=== PATIENT | female | born 1955 | race Caucasian/White ===

== ENCOUNTER → 2016-11-17 | Outpatient (CLI) | payer BC ==
[~2016-11-17] MED LIST: ALBUAER2; ALLDSR60; ASTHMACORT; MOME50SP5; SIMV40TA2
--- NOTE | 2016-11-17 16:29 | MAMMOGRAPHY REPORT ---
BILATERAL DIGITAL SCREENING MAMMOGRAM WITH CAD: 11/17/2016 CLINICAL HISTORY: Routine screening. Patient has no complaints. TECHNIQUE: Current study was also evaluated with a Computer Aided Detection (CAD) system. Bilatera l CC and MLO views were obtained. COMPARISON: Comparison is made to exams dated: 04/18/2013 mammogram, 01/26/2012 mammogram, 10/14/2010 mammogram, 10/12/2009 mammogram - [facility], 10/10/2008, and 09/17/2007. BREAST COMPOSITION: The tissue of both breasts is heterogeneously dense, which may obscure small ma sses. FINDINGS: No suspicious masses, calcifications, or areas of architectural distortion are noted in e ither breast. There has been no significant interval change compared to prior exams. Ovoid asymmetr y seen within the right lateral breast on the cc view is stable dating back to at least the 2011 exa m. A few scattered bilateral benign-appearing calcifications are noted. IMPRESSION: ACR BI-RADS CATEGORY 2: BENIGN There is no mammographic evidence of malignancy. A 1 year screening mammogram is recommended. The p atient will receive written notification of the results. Approximately 10% of breast cancers are not detected with mammography. A negative mammographic repor t should not delay biopsy if a clinically suggestive mass is present. Kathy Castellanos M.D. /:11/17/2016 15:26:29 Chuck Splitter: Mevlina VEGAS(R)(M), [facility] letter sent: Normal 1/2 BI-RADS Code: ACR BI-RADS Category 2: Benign
== END | disposition home or self-care (01) ==
LOC: C.MAMM 13:43
PROVIDERS: ATTEND Internal Medicine
DX: Z12.31 Encounter for screening mammogram for malignant neoplasm of breast (principal)

== ENCOUNTER 2019-11-20 08:41 | Inpatient (IN) ==
[2019-11-20 09:05] LABS: Hematocrit (blood only) 45.2 % (37-47); Hemoglobin 15.1 g/dL (12.0-16.0); Immature Granulocytes # (auto) 0.05 K/uL (0.00-0.02); Immature Granulocytes % (auto) 0.3 %; Lymphocytes # (auto) 0.75 K/uL (1.2-3.4); Lymphocytes % (auto) 5.1 %; Mean Corpuscular Hemoglobin 29.8 pg (25-34); Mean Corpuscular Hgb Conc 33.4 g/dL (32-36); Mean Corpuscular Volume 89.3 fL (80-100); Mean Platelet Volume 11.5 fL (7.4-10.4); Monocytes # (auto) 0.53 K/uL (0.11-0.59); Monocytes % (auto) 3.6 %; Neutrophils # (auto) 13.24 K/uL (1.4-6.5); Platelet Count 232 K/uL (130-400); RDW Coefficient of Variation 14.6 % (11.5-14.5); RDW Standard Deviation 47.4 fL (36.4-46.3); Red Blood Count 5.06 M/uL (4.2-5.4); White Blood Count 14.57 K/uL (4.8-10.8)
[2019-11-20] MEDS ORDERED: SODIUM CHLORIDE 0.9% 1000ML 1,000 ML IV ONE ×2 (09:07→10:22)
[2019-11-20] MEDS: HYDROmorphone INJ 0.5 MG/0.5 ML SYR IV PRN ×2 (09:20→10:20)
[2019-11-20] MEDS ORDERED: metroNIDAZOLE 500 MG/100 ML BAG IV STA (10:02)
--- NOTE | 2019-11-20 10:03 | CT Scan Report ---
ABDOMEN AND PELVIS CT WITHOUT CONTRAST CT DOSE: 687.79 mGycm HISTORY: Acute right lower quadrant abdominal pain with history of kidney stones RLQ pain, h/o stone s TECHNIQUE: Multiaxial CT images of the abdomen and pelvis were performed without contrast. A dose lo wering technique was utilized adhering to the principles of ALARA. COMPARISON STUDY: Chest radiographs 08/23/2019 FINDINGS: Mild dependent bibasilar atelectasis. Small volume of pneumoperitoneum is noted throughout the abdome n and pelvis. No pneumatosis identified. Imaged inferior cardiac chambers are unremarkable. Limited e valuation of the solid abdominal organs without the use of IV contrast. The limitations of the study, the spleen, and adrenal glands are unremarkable. Mild pancreatic atrophy. Liver is unremarkable with out focal mass identified. Cholecystectomy. There are a few punctate nonobstructing calculi noted within the bilateral kidneys. No ureteral calcu li or obstructive uropathy. The ureters are unremarkable. Partially decompressed urinary bladder. Lob ular morphology of the uterus suggestive of fibroids which includes a subserosal versus pedunculated right fundal lesion measuring 2.8 cm. No adnexal mass lesion. Moderate calcified plaque the abdominal aorta. No adenopathy. Fluid-filled distal esophagus and stomach. No small bowel obstruction. Moderate fecal retention. Gabriela nflamed appendix. Mild degree of complex abdominal pelvic ascites, most pronounced within the depende nt pelvis and right pericolic gutter. Several stool-filled loops of small bowel are noted. A site of perforation is not definitively seen. Soft tissues are unremarkable. Degenerative changes of the spin e and pelvis. No acute fracture. IMPRESSION: 1. Small volume of scattered pneumoperitoneum throughout the abdomen and pelvis is compatible with pe rforated viscus. The site of perforation is not definitively seen. Surgical consultation is needed. 2. Moderate fecal retention with multiple stool-filled loops of small bowel compatible with decreased small bowel transit. 3. Small volume of complex abdominal pelvic ascites likely correlates with bowel contents with hemope ritoneum considered less likely without reported history of trauma. 4. No bowel obstruction. 5. Nonobstructing punctate bilateral nephrolithiasis. 6. Cholecystectomy. ACT 112: Negative or not required by law. The above report was generated using voice recognition software. It may contain grammatical, syntax o r spelling errors. Electronically signed by: Anthony Galan M.D. 11/20/2019 10:02 AM
[2019-11-20] MEDS ORDERED: CIPROFLOXACIN / D5W 400 MG/200 ML BAG IV STA (10:07)
[2019-11-20 10:29] LABS: Albumin Level 3.7 gm/dl (3.4-5.0); BUN Creatinine Ratio 12.4 (10-20); Calcium 8.9 mg/dl (8.5-10.1); Creatinine Clr Calc Pharmacy 59.9 ml/min; Est GFR (Non-African American) 57.8; Potassium 4.4 mmol/L (3.5-5.1)
[2019-11-20 10:34] LABS: Albumin Globulin Ratio 0.9 (0.9-2); Bilirubin,Total 1.1 mg/dl (0.2-1); Total Protein 7.7 gm/dl (6.4-8.2)
--- NOTE | 2019-11-20 10:54 | Emergency Department Note ---
Impression & Plan Perforated abdominal viscus ED Provider Note NAME: SMITHA CALLE AGE: 64 SEX: F ARRIVES VIA: Ambulance INFORMANT: [Patient] EMS ED PROVIDER(S): Gerardo Freeman MD CHIEF COMPLAINT: Abdominal pain PLAN: Disposition: Admitted Condition: Guarded MEDICAL DECISION MAKING: Patient is a 64-year-old female presented with acute onset of abdominal pain. She was treated with IV Dilaudid and IV fluids. The patient received morphine and Zofran prehospital by medical command. She underwent blood work and imaging. The patient had a leukocytosis. Her CT imaging was very concerning for a perforated viscus. General surgery was emergently consulted. I discussed the case with Kadie Evans PA-C and the patient will be evaluated admitted by Dr. Gomes. Triage Nursing notes reviewed and agree them. [Additional history obtained from] EMS Vital Signs: reviewed and remarkable for tachycardia Differential diagnosis: Appendicitis, ovarian viscus, ovarian pathology, ovarian torsion, ectopic , TOA, PID, infections, diverticulitis, UTI, obstruction, mesenteric ischemia, aortic pathology, inflammatory bowel disease, renal colic, PUD, pancreatitis, biliary pathology, hernia, volvulus, constipation, as well as other pathologies. ER treatment provided: IV Dilaudid Normal saline hydration IV Cipro IV Flagyl Diagnostics interpreted by me: ECG: Rate: 113 bpm Rhythm: Sinus tachycardia [place]: Normal QRS: Normal ST segements: Nonspecific ST and inferolateral T wave inversions Other: No PVCs or PACs Cardiac Monitoring: Cardiac monitoring ordered by me: The patient was placed on continuous cardiac monitoring and observed. It revealed a sinus tachycardia at 120 beats per minute without ectopy or evidence of dysrhythmia. Laboratory studies: [See below] CBC was concerning for moderate leukocytosis. Chemistry panel unremarkable. Imaging studies: [See below] CT scan of the abdomen pelvis was performed and was concerning for perforated viscus. I refer you to the EMR for further details. Consultation(s): General surgery, Kadie Evans PA-C under the supervision of Dr. Gomes. HPI: The patient is a 64 year old female who presents to the Emergency Room with complaints of severe abdominal. This started last evening and is worsening. The patient also notes the following associated symptoms, mild nausea. The pat ient has found no relieving factors. Current pain is rated as 10/10. The patient had such severe pain today she called 911. EMS contact me for medical command and the patient was given morphine and Zofran prehospital to facilitate transfer. Pt denies LOC, headache, fevers, chills, diaphoresis, visual changes, neck pain, chest pain, breathing difficulties, vomiting, back pain, melena, hematochezia, urinary symptoms, numbness, weakness, lymphadenopathy, rash, or other complaints. ROS: See above HPI for pertinent positives & negatives. A total of [10] systems reviewed and were otherwise negative. 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 Oropharynx unremarkable. EYES: Normal conjunctiva. Sclera non-icteric. NECK: Inspection normal. Non-tender. Supple. No nuchal rigidity. FROM. No masses. RESPIRATORY: Clear to auscultation. No wheezes. No rales. Normal respiratory effort. CARDIAC: Tachycardic rate. Normal rhythm. No murmurs. No rubs. Extremities warm and well perfused. Pulses equal. No JVD. GI: Soft, non-distended. Diffuse tenderness to palpation, worse in the lower quadrant. Positive for rebound and guarding. No masses. RECTAL: Deferred. MUSCULOSKELETAL: Atraumatic. Chest examination reveals no tenderness. The back is symmetrical on inspection without obvious abnormality. There is no CVA t enderness to palpation. No joint edema. LOWER EXTREMITIES: Calves are equal size bilaterally and non-tender. No edema. No discoloration. NEURO: Normal sensorium. No sensory or motor deficits noted. SKIN: No rash or jaundice noted. ED COURSE: Procedures: [none] [Critical Care:] I have personally spent greater than 40 minutes of critical care time in the direct management of this patient. This includes bedside care, interpretation of diagnostic studies, and testing, discussion with consultants, patient, and other required patient management activities. This 40 minutes is in excess of all separately billable procedures. Gerardo Freeman MD Past Med/Surg History Medical History (Updated 11/20/19 @ 10:51 by Gerardo Freeman MD) Allergic rhinitis (Chronic) Anxiety (Chronic) Asthma (Chronic) Depression GERD (gastroesophageal reflux disease) (Chronic) Hyperlipidemia (Chronic) Impaired fasting glucose (Chronic) Kidney stones Never smoker Obstructive sleep apnea (Chronic) Osteoarthritis (Chronic) Surgical History Frozen shoulder left "Put me to sleep to stretch it out" History of bilateral tubal ligation History of cholecystectomy History of colonoscopy History of right breast biopsy benign History of vaginal surgery removal of vagina polyp History of wisdom tooth extraction Social History (Updated 11/05/19 @ 13:46 by Dolores Stern) Preferred Language: Dutch Communication Ability: Effective Car Scrubber Required: No Beliefs That Will Affect Care: None marital status: Current Living Situation: Spouse and Parent Current Living Situation Comment: Lives with and mother current occupational status: retired Feels Safe at Home: Yes Smoking Status: Never smoker Second Hand Exposure: Yes (father smoked/work environment) ; Hx Alcohol Use: Yes Alcohol type: wine Hx Substance Use: No Allergies Allergies Allergy/AdvReac Type Severity Reaction Status Date / Time amoxicillin Allergy Intermediate blood in Verified 11/20/19 08:59 urine Home Meds Home Medications Medication Instructions Recorded Confirmed citalopram 20 mg tablet 10 mg PO QDL tab 07/02/19 11/20/19 L. gasseri-B. bifidum-B longum 1.5 1 cap PO QDL 07/23/19 11/20/19 billion cell capsule acetaminophen [Tylenol] 325 mg PO QID PRN 11/20/19 11/20/19 montelukast 10 mg PO QDL 11/20/19 11/20/19 pantoprazole 40 mg PO QDL 11/20/19 11/20/19 rosuvastatin 20 mg PO DAILY@0100 11/20/19 11/20/19 Previous Rx's Medication Instructions Recorded albuterol sulfate 90 mcg/actuation 2 puff INHALATION Q6H PRN #25.5 gm 07/02/19 aerosol inhaler budesonide-formoterol HFA 160 2 puffs INH BID #10.2 gm 07/26/19 mcg-4.5 mcg/actuation aerosol inhaler pseudoephedrine HCl 120 mg 120 mg PO Q12H #60 tab 08/23/19 tablet,extended release Results & Data (ED) Vital Signs Vital Signs - 24 hr 11/20/19 08:44 11/20/19 08:55 11/20/19 09:56 Temperature 36.8 C Temperature Source Oral Pulse Rate 120 H Pulse Rate [Apical] 120 H Respiratory Rate 22 18 Blood Pressure 157/100 H Blood Pressure [Left Arm] 149/84 H Blood Pressure Mean 119 Blood Pressure Mean [Left Arm] 105 Pulse Oximetry 94 94 96 Oxygen Delivery Method Room Air Room Air Nasal Cannula Sepsis Recent Fever Within 48 Hours No Sepsis New/Unexplained Change in Mental Status No Sepsis Action Taken by Nursing No Action Required Laboratory Data Result diagrams: 11/20/19 08:55 11/20/19 09:42 Lab Results 11/20/19 11/20/19 11/20/19 Range/Units 08:55 08:55 09:42 WBC 14.57 H (4.8-10.8) K/uL RBC 5.06 (4.2-5.4) M/uL Hgb 15.1 (12.0-16.0) g/dL Hct 45.2 (37-47) % MCV 89.3 (80-100) fL MCH 29.8 (25-34) pg MCHC 33.4 (32-36) g/dL RDW Std Deviation 47.4 H (36.4-46.3) fL RDW Coeff of [place] 14.6 H (11.5-14.5) % Plt Count 232 (130-400) K/uL MPV 11.5 H (7.4-10.4) fL Immature Gran % (Auto) 0.3 % Neut % (Auto) 91.0 % Lymph % (Auto) 5.1 % [place] % (Auto) 3.6 % Eos % (Auto) 0.0 % Baso % (Auto) 0.0 % Immature Gran # (Auto) 0.05 H (0.00-0.02) K/uL Neut # (Auto) 13.24 H (1.4-6.5) K/uL Lymph # (Auto) 0.75 L (1.2-3.4) K/uL [place] # (Auto) 0.53 (0.11-0.59) K/uL Eos # (Auto) 0.00 (0-0.5) K/uL Baso # (Auto) 0.00 (0-0.2) K/uL Sodium Cancelled 139 Potassium Cancelled 4.4 Chloride Cancelled 109 H Carbon Dioxide Cancelled 25 Anion Gap Cancelled 5.0 BUN Cancelled 13 Creatinine Cancelled 1.03 Est Cr Clr Drug Dosing Cancelled 59.9 Est GFR ( Amer) Cancelled 67.0 Est GFR (Non-Af Amer) Cancelled 57.8 BUN/Creatinine Ratio Cancelled 12.4 Glucose Cancelled 198 H Calcium Cancelled 8.9 Total Bilirubin Cancelled 1.1 H AST Cancelled 22 ALT Cancelled 44 Alkaline Phosphatase Cancelled 87 Total Protein Cancelled 7.7 Albumin Cancelled 3.7 Globulin Cancelled 4.0 Albumin/Globulin Ratio Cancelled 0.9 Lipase Cancelled 45 L Administered Medications Hydromorphone HCl (Dilaudid) 0.25 mg IV Q15M PRN PRN Reason: Pain Stop: 12/04/19 09:06 Last Admin: 11/20/19 10:20 Dose: 0.25 mg Documented by: [id number] Admin: 11/20/19 09:20 Dose: 0.25 mg Documented by: [id number] Metronidazole (Flagyl) 500 mg in 100 mls @ 100 mls/hr IV NOW STA Stop: 11/20/19 11:01 Last Admin: 11/20/19 10:20 Dose: 100 mls/hr Documented by: [id number] Ciprofloxacin (Cipro) 400 mg in 200 mls @ 200 mls/hr IV NOW STA Stop: 11/20/19 11:06 Last Admin: 11/20/19 10:20 Dose: 200 mls/hr Documented by: [id number] Sodium Chloride (Nss 1000ml) 1,000 mls @ 999 mls/hr IV .Q1H1M ONE Stop: 11/20/19 11:22 Last Admin: 11/20/19 10:39 Dose: 999 mls/hr Documented by: [id number] Discontinued Medications Sodium Chloride (Nss 1000ml) 1,000 mls @ 999 mls/hr IV .Q1H1M ONE Stop: 11/20/19 10:07 Last Infusion: 11/20/19 10:28 Dose: 0 mls/hr Documented by: [id number] Admin: 11/20/19 09:21 Dose: 999 mls/hr Documented by: [id number] Discharge Plan Visit Data Chief Complaint: Abdominal Pain ED Provider: Gerardo Freeman Discharge Problem: Perforated abdominal viscus Forms Stand Alone Forms: [facility] Prescriptions Prescriptions: No Action citalopram 20 mg tablet 10 mg PO QDL RF: 0 albuterol sulfate [ProAir HFA] 90 mcg/actuation HFA aerosol inhaler 2 puff INHALATION Q6H PRN (Reason: Shortness Of Breath) Qty: 25.5 RF: 3 Gen[employer] Vision 1.5 billion cell capsule 1 cap PO QDL RF: 0 Symbicort 160-4.5 mcg/actuation HFA aerosol inhaler 2 puffs INH BID Qty: 10.2 RF: 2 pseudoephedrine HCl [Sudafed 12 Hour] 120 mg tablet extended release 120 mg PO Q12H Qty: 60 RF: 0 acetaminophen [Tylenol] 325 mg Tablet 325 mg PO QID PRN (Reason: Pain) RF: 0 pantoprazole 40 mg tablet,delayed release (DR/EC) 40 mg PO QDL RF: 0 montelukast 10 mg tablet 10 mg PO QDL RF: 0 rosuvastatin 20 mg tablet 20 mg PO DAILY@0100 RF: 0
[2019-11-20] MEDS ORDERED: BACITRACIN OINT 15 GM TUBE ONE (11:19)
[2019-11-20] MEDS ORDERED: BUPIVACAINE 0.5 % 5 MG/1 ML MPF 30ML VIAL ONE (11:19)
[2019-11-20] MEDS ORDERED: LIDOCAINE HCL 1% 20 ML VIAL ONE (11:19)
--- NOTE | 2019-11-20 11:21 | History & Physical Report ---
Date of Service November 20, 2019 Assessment & Plan (1) Perforated abdominal viscus: 64 year-old female presented to ED with sudden onset of abdominal pain that began last evening that increase in nature throughout the night. Associated sweats and lightheadedness. Leukocytosis of 14k. CT scan of abdomen and pelvis without contrast showing scattered pneumoperitoneum with ascites in pelvis and right colic gutter concerning for perforation, site of perforation unclear on CT scan. Abdomen is soft but involuntary and voluntary guarding with rigidity and rebound tenderness on examination. Plan: Discussed with patient findings on CT scan concerning for possible bowel perforation. Discussed need for exploration and possible bowel resection and ostomy to control infection and prevent further infection, sepsis, or even . Dr. Gomes discussed procedure and risks as well with patient. Informed consent obtained by patient. Continue IV Cipro/Flagyl Continue pain management To OR emergently for ex lap, possible bowel resection, possible ostomy Med/surg postop Keep NPO I ( Yunior Gomes MD ) did talk to pt about benefits, risks and alternative sof the exploratory laparotomy, possible bowel resection, stoma, the risks - infection, bleeding, abscess, sepsis, multiple organs failure, DC, DVT, , pt understood, she agrees with the surgery, I answered all questions, (2) Pneumoperitoneum: Plan as above Dr. Gomes has seen and examined patient, agrees with above. History of Present Illness Chief Complaint: abdominal pain Primary Care Provider: Jennifer Soliz MD Velvet is a pleasant 64 year-old female who presented to emergency department via ambulance for severe abdominal pain that suddenly began last evening. States she was in her normal state of health yesterday morning and prior. States pain started in lower abdomen than began to generalize and become more severe. Took Tylenol without much relief. States she had increasing pain to the point she could not get up to go to the bathroom. 10/10 severe pain. Had hard small bowel movements without any blood earlier in day and then smear of stool during urination in the evening. States she would get clammy, sweaty, and lightheaded due to the pain and any movement but no fevers. No real associated nausea or vomiting. No difficulty urinating. Denies chest pain, shortness of breath, or difficulty breathing. Had a colonoscopy in March 2019 in which polyps were removed but no other concerns. No history of diverticulosis or bowel issues. Regular bowel movements in last 10 years. Believes her aunt on her paternal side had colon cancer. Mother with history of diverticulitis. Er work-up included labs which showed leukocytosis of 14k. CT scan of abd/pelvis without contrast showing scattered pneumoperitoneum and ascites in the pelvis and right colic gutter concerning for bowel perforation but unknown site given lack of contrast. Stool filled small bowel and right colon. She currently is rating her pain 2/10 but had Morphine prehospital and Dilaudid IV. Mouth feels really dry. Has not had anything to eat or drink this morning. Allergies Allergy/AdvReac Type Severity Reaction Status Date / Time amoxicillin Allergy Intermediate blood in Verified 11/20/19 08:59 urine Home Medications Home Medications Medication Instructions Recorded Confirmed Type albuterol sulfate 90 mcg/actuation 2 puff INHALATION Q6H PRN #25.5 gm 07/02/19 11/20/19 Rx aerosol inhaler citalopram 20 mg tablet 10 mg PO QDL tab 07/02/19 11/20/19 History L. gasseri-B. bifidum-B longum 1.5 1 cap PO QDL 07/23/19 11/20/19 History billion cell capsule budesonide-formoterol HFA 160 2 puffs INH BID #10.2 gm 07/26/19 11/20/19 Rx mcg-4.5 mcg/actuation aerosol inhaler pseudoephedrine HCl 120 mg 120 mg PO Q12H #60 tab 08/23/19 11/20/19 Rx tablet,extended release acetaminophen [Tylenol] 325 mg PO QID PRN 11/20/19 11/20/19 History montelukast 10 mg PO QDL 11/20/19 11/20/19 History pantoprazole 40 mg PO QDL 11/20/19 11/20/19 History rosuvastatin 20 mg PO DAILY@0100 11/20/19 11/20/19 History Past Med/Surg History Medical History Allergic rhinitis (Chronic) Anxiety (Chronic) Asthma (Chronic) Depression GERD (gastroesophageal reflux disease) (Chronic) Hyperlipidemia (Chronic) Impaired fasting glucose (Chronic) Kidney stones Never smoker Obstructive sleep apnea (Chronic) Osteoarthritis (Chronic) Surgical History Frozen shoulder left "Put me to sleep to stretch it out" History of bilateral tubal ligation History of cholecystectomy History of colonoscopy History of right breast biopsy benign History of vaginal surgery removal of vagina polyp History of wisdom tooth extraction Family History Mother Family history of diabetes mellitus Aunt Family history of diabetes mellitus Family hx of colon cancer Uncle Family history of diabetes mellitus Family hx of colon cancer Grandmother (Paternal) Family history of diabetes mellitus Grandmother (Maternal) Family history of diabetes mellitus Other No family history of adverse response to anesthesia Social History (Updated 11/05/19 @ 13:46 by Dolores Stern) Preferred Language: Albanian Communication Ability: Effective Manifold Operator Required: No Beliefs That Will Affect Care: None marital status: Current Living Situation: Spouse and Parent Current Living Situation Comment: Lives with and mother current occupational status: retired Feels Safe at Home: Yes Smoking Status: Never smoker Do You Dip or Chew Tobacco: No ; Second Hand Exposure: Yes (father smoked/work environment) ; Hx Alcohol Use: Yes Alcohol type: wine Hx Substance Use: No Review of Systems Review of Systems: All systems reviewed & are unremarkable except as noted in HPI & below Physical Exam Constitutional: well developed, + acute distress (mild distressed) and + obese ENMT: Mouth: + dry oral mucous membranes Respiratory: normal respiratory effort, lungs clear to auscultation no labored breathing, no retractions and does not use accessory muscles decreased lung expansion on deep breath due to abdominal pain Gastrointestinal (Abdomen): Inspection/Auscultation: abdomen normal to inspection; abdomen not distended and + abnormal bowel sounds (hypoactive) Percussion/Palpation: + abdomen tender, + guarding and abdomen soft rebound tenderness left and right lower abdomen, guarding throughout. Skin: no rashes, warm and dry Psychiatric: Orientation: alert and oriented x 3 Results & Data Results & Data ([facility]) Vital Signs (Past 12 Hours) Vital Signs Temp Pulse Pulse Resp BP BP Pulse Ox 11/20/19 09:56 120 H 18 149/84 H 96 11/20/19 08:55 36.8 C 120 H 22 157/100 H 94 11/20/19 08:44 94 Laboratory Results 11/20/19 11/20/19 11/20/19 Range/Units 09:42 08:55 08:55 WBC 14.57 H (4.8-10.8) K/uL RBC 5.06 (4.2-5.4) M/uL Hgb 15.1 (12.0-16.0) g/dL Hct 45.2 (37-47) % MCV 89.3 (80-100) fL MCH 29.8 (25-34) pg MCHC 33.4 (32-36) g/dL RDW Std Deviation 47.4 H (36.4-46.3) fL RDW Coeff of [place] 14.6 H (11.5-14.5) % Plt Count 232 (130-400) K/uL MPV 11.5 H (7.4-10.4) fL Immature Gran % (Auto) 0.3 % Neut % (Auto) 91.0 % Lymph % (Auto) 5.1 % [place] % (Auto) 3.6 % Eos % (Auto) 0.0 % Baso % (Auto) 0.0 % Immature Gran # (Auto) 0.05 H (0.00-0.02) K/uL Neut # (Auto) 13.24 H (1.4-6.5) K/uL Lymph # (Auto) 0.75 L (1.2-3.4) K/uL [place] # (Auto) 0.53 (0.11-0.59) K/uL Eos # (Auto) 0.00 (0-0.5) K/uL Baso # (Auto) 0.00 (0-0.2) K/uL Sodium 139 Cancelled Potassium 4.4 Cancelled Chloride 109 H Cancelled Carbon Dioxide 25 Cancelled Anion Gap 5.0 Cancelled BUN 13 Cancelled Creatinine 1.03 Cancelled Est Cr Clr Drug Dosing 59.9 Cancelled Est GFR ( Amer) 67.0 Cancelled Est GFR (Non-Af Amer) 57.8 Cancelled BUN/Creatinine Ratio 12.4 Cancelled Glucose 198 H Cancelled Calcium 8.9 Cancelled Total Bilirubin 1.1 H Cancelled AST 22 Cancelled ALT 44 Cancelled Alkaline Phosphatase 87 Cancelled Total Protein 7.7 Cancelled Albumin 3.7 Cancelled Globulin 4.0 Cancelled Albumin/Globulin Ratio 0.9 Cancelled Lipase 45 L Cancelled Diagnostic Findings ABDOMEN AND PELVIS CT WITHOUT CONTRAST CT DOSE: 687.79 mGycm HISTORY: Acute right lower quadrant abdominal pain with history of kidney stones RLQ pain, h/o stones TECHNIQUE: Multiaxial CT images of the abdomen and pelvis were performed without contrast. A dose lowering technique was utilized adhering to the principles of ALARA. COMPARISON STUDY: Chest radiographs 08/23/2019 FINDINGS: Mild dependent bibasilar atelectasis. Small volume of pneumoperitoneum is noted throughout the abdomen and pelvis. No pneumatosis identified. Imaged inferior cardiac chambers are unremarkable. Limited evaluation of the solid abdominal organs without the use of IV contrast. The limitations of the study, the spleen, and adrenal glands are unremarkable. Mild pancreatic atrophy. Liver is unremarkable without focal mass identified. Cholecystectomy. There are a few punctate nonobstructing calculi noted within the bilateral kidneys. No ureteral calculi or obstructive uropathy. The ureters are unremarkable. Partially decompressed urinary bladder. Lobular morphology of the uterus suggestive of fibroids which includes a subserosal versus pedunculated right fundal lesion measuring 2.8 cm. No adnexal mass lesion. Moderate calcified plaque the abdominal aorta. No adenopathy. Fluid-filled distal esophagus and stomach. No small bowel obstruction. Moderate fecal retention. Noninflamed appendix. Mild degree of complex abdominal pelvic ascites, most pronounced within the dependent pelvis and right pericolic gutter. Several stool-filled loops of small bowel are noted. A site of perforation is not definitively seen. Soft tissues are unremarkable. Degenerative changes of the spine and pelvis. No acute fracture. IMPRESSION: 1. Small volume of scattered pneumoperitoneum throughout the abdomen and pelvis is compatible with perforated viscus. The site of perforation is not definitively seen. Surgical consultation is needed. 2. Moderate fecal retention with multiple stool-filled loops of small bowel compatible with decreased small bowel transit. 3. Small volume of complex abdominal pelvic ascites likely correlates with bowel contents with hemoperitoneum considered less likely without reported history of trauma. 4. No bowel obstruction. 5. Nonobstructing punctate bilateral nephrolithiasis. 6. Cholecystectomy. Code Status & VTE Plan VTE Prophylaxis Plan VTE Prophylaxis will be ordered: Yes
[2019-11-20] MEDS ORDERED: ATROPINE SULFATE 0.1 MG/ML 10ML SYR IV PRN (11:22)
[2019-11-20] MEDS ORDERED: ePHEDrine sulfate 50 MG/ML AMP IV PRN (11:22)
[2019-11-20] MEDS ORDERED: fentaNYL citrate 100 MCG/2 ML VIAL IV PRN (11:22)
[2019-11-20] MEDS ORDERED: HYDROmorphone INJ 1 MG/ML SYRINGE IV PRN (11:22)
[2019-11-20] MEDS ORDERED: ONDANSETRON INJ 2 MG/ML 2 ML VIAL IV PRN (11:22)
--- NOTE | 2019-11-20 11:22 | Anesthesiology Consultation ---
Date of Service November 20, 2019 Assessment & Plan Chart Review Chart Review: Acceptable Risk for Surgery and Patient NOT seen in Pre Admission Testing Consults Requested none History Surgery Operation Date: 11/20/19 08:00 Proposed Procedures p Exploratory Laparotomy, Possible Bowel Resection, Stoma - Yunior Gomes MD Height/Weight Height: 5 ft 5 in Weight: 84.2 kg Allergies Allergy/AdvReac Type Severity Reaction Status Date / Time amoxicillin Allergy Intermediate blood in Verified 11/20/19 08:59 urine Medications Home Medications Medication Instructions Recorded Confirmed Last Taken albuterol sulfate 90 mcg/actuation 2 puff INHALATION Q6H PRN #25.5 gm 07/02/19 11/20/19 Unknown aerosol inhaler citalopram 20 mg tablet 10 mg PO QDL tab 07/02/19 11/20/19 11/19/19 L. gasseri-B. bifidum-B longum 1.5 1 cap PO QDL 07/23/19 11/20/19 11/19/19 billion cell capsule budesonide-formoterol HFA 160 2 puffs INH BID #10.2 gm 07/26/19 11/20/19 Unknown mcg-4.5 mcg/actuation aerosol inhaler pseudoephedrine HCl 120 mg 120 mg PO Q12H #60 tab 08/23/19 11/20/19 11/19/19 tablet,extended release acetaminophen [Tylenol] 325 mg PO QID PRN 11/20/19 11/20/19 11/20/19 03:30 325 mg montelukast 10 mg PO QDL 11/20/19 11/20/19 11/19/19 pantoprazole 40 mg PO QDL 11/20/19 11/20/19 11/19/19 rosuvastatin 20 mg PO DAILY@0100 11/20/19 11/20/19 11/18/19 01:00 Active Medications Generic Name Dose Route Start Last Admin Trade Name Freq PRN Reason Stop Dose Admin Hydromorphone HCl 0.25 mg 11/20/19 09:07 11/20/19 10:20 Dilaudid IV 12/04/19 09:06 0.25 mg Q15M PRN Administration Pain NPO Date Last Intake of Fluids: 11/20/19 Time Last Intake of Fluids: 03:30 Last Intake of Fluids Comment: with pills Date Last Intake of Solids: 11/19/19 Time Last Intake of Solids: 20:00 Past Medical History Medical History Allergic rhinitis (Chronic) Anxiety (Chronic) Asthma (Chronic) Depression GERD (gastroesophageal reflux disease) (Chronic) Hyperlipidemia (Chronic) Impaired fasting glucose (Chronic) Kidney stones Never smoker Obstructive sleep apnea (Chronic) Osteoarthritis (Chronic) Exercise / Class Metabolic Activity II 4-5 Yardwork/Stairs/Walk up hill Past Family History Family History Mother Family history of diabetes mellitus Aunt Family history of diabetes mellitus Family hx of colon cancer Uncle Family history of diabetes mellitus Family hx of colon cancer Grandmother (Paternal) Family history of diabetes mellitus Grandmother (Maternal) Family history of diabetes mellitus Other No family history of adverse response to anesthesia Past Surgical History Surgical History Frozen shoulder left "Put me to sleep to stretch it out" History of bilateral tubal ligation History of cholecystectomy History of colonoscopy History of right breast biopsy benign History of vaginal surgery removal of vagina polyp History of wisdom tooth extraction Past Anesthesia History No Hx of Anesthesia Complications and No Family Hx of Anesthesia Complications History of PONV No Hx of PONV and No Hx of Motion Sickness Social History Smoking Status: Never smoker Do You Dip or Chew Tobacco: No Hx Alcohol Use: Yes Alcohol type: wine alcohol intake frequency: holidays/special occasions only Hx Substance Use: No substance use type: does not use Physical Exam Vital Signs Last Vital Signs Temp 37.4 C 11/20/19 11:40 Pulse 121 H 11/20/19 11:40 Resp 18 11/20/19 11:40 BP 145/95 H 11/20/19 11:40 Pulse Ox 94 11/20/19 11:40 Testing Laboratory Results 11/20/19 08:55 11/20/19 09:42 Chest X-Ray Date: 08/23/19 TWO VIEW CHEST CLINICAL HISTORY: Asthma. FINDINGS: PA and lateral chest radiographs are compared to study dated 10/17/2007. The cardiomediastinal silhouette is unremarkable. The lungs and pleural spaces are clear. There is no pneumothorax. The skeletal structures are osteopenic. The bony thorax appears intact. Cholecystectomy clips are seen in the right upper quadrant. IMPRESSION: No active disease in the chest. Other Testing 11/20/2019: ABDOMEN AND PELVIS CT WITHOUT CONTRAST CT DOSE: 687.79 mGycm HISTORY: Acute right lower quadrant abdominal pain with history of kidney stones RLQ pain, h/o stones TECHNIQUE: Multiaxial CT images of the abdomen and pelvis were performed without contrast. A dose lowering technique was utilized adhering to the principles of ALARA. COMPARISON STUDY: Chest radiographs 08/23/2019 FINDINGS: Mild dependent bibasilar atelectasis. Small volume of pneumoperitoneum is noted throughout the abdomen and pelvis. No pneumatosis identified. Imaged inferior cardiac chambers are unremarkable. Limited evaluation of the solid abdominal organs without the use of IV contrast. The limitations of the study, the spleen, and adrenal glands are unremarkable. Mild pancreatic atrophy. Liver is unremarkable without focal mass identified. Cholecystectomy. There are a few punctate nonobstructing calculi noted within the bilateral kidneys. No ureteral calculi or obstructive uropathy. The ureters are unremarkable. Partially decompressed urinary bladder. Lobular morphology of the uterus suggestive of fibroids which includes a subserosal versus pedunculated right fundal lesion measuring 2.8 cm. No adnexal mass lesion. Moderate calcified plaque the abdominal aorta. No adenopathy. Fluid-filled distal esophagus and stomach. No small bowel obstruction. Moderate fecal retention. Noninflamed appendix. Mild degree of complex abdominal pelvic ascites, most pronounced within the dependent pelvis and right pericolic gutter. Several stool-filled loops of small bowel are noted. A site of perforation is not definitively seen. Soft tissues are unremarkable. Degenerative changes of the spine and pelvis. No acute fracture. IMPRESSION: 1. Small volume of scattered pneumoperitoneum throughout the abdomen and pelvis is compatible with perforated viscus. The site of perforation is not definitively seen. Surgical consultation is needed. 2. Moderate fecal retention with multiple stool-filled loops of small bowel compatible with decreased small bowel transit. 3. Small volume of complex abdominal pelvic ascites likely correlates with bowel contents with hemoperitoneum considered less likely without reported history of trauma. 4. No bowel obstruction. 5. Nonobstructing punctate bilateral nephrolithiasis. 6. Cholecystectomy.
[2019-11-20] MEDS ORDERED: SUCCINYLCHOLINE CHLORIDE 20 MG/ML 10 ML VIAL ONE (11:23)
[2019-11-20] MEDS ORDERED: ROCURONIUM BROMIDE 10 MG/ML 5 ML VIAL ONE (11:24)
[2019-11-20] MEDS ORDERED: DEXAMETHASONE SOD INJ 4 MG/ML VIAL ONE (11:29)
[2019-11-20] MEDS ORDERED: NEOSTIGMINE METHYLSULFATE 5 MG/5 ML SYR ONE (11:29)
[2019-11-20] MEDS ORDERED: GLYCOPYRROLATE 0.2 MG/ML VIAL ONE ×2 (11:29→13:58)
[2019-11-20] MEDS ORDERED: ONDANSETRON INJ 2 MG/ML 2 ML VIAL ONE ×2 (11:29→13:00)
[2019-11-20] MEDS ORDERED: LIDOCAINE HCL 2% 2 ML VIAL/AMP(20MG/ML) INFIL ONE (11:29)
[2019-11-20] MEDS ORDERED: PROPOFOL IV EMULSION 10 MG/ML 20 ML VIAL IV ONE (11:29)
[2019-11-20] MEDS ORDERED: MIDAZOLAM HCL 1 MG/ML 2ML VIAL ONE (11:30)
[2019-11-20] MEDS ORDERED: fentaNYL citrate 100 MCG/2 ML VIAL ONE (11:30)
[2019-11-20] MEDS ORDERED: VANCOMYCIN HCL 1000MG/20ML VIAL ONE (11:37)
--- NOTE | 2019-11-20 11:39 | History & Physical Bridge Note ---
Date of Service November 20, 2019 History & Physical Bridge Note I have examined the patient, reviewed the History & Physical and in the interval since the performance of the History & Physical I have noted the following changes of clinical significance: no changes noted
[2019-11-20] MEDS ORDERED: ALBUMIN HUMAN 5% 12.5 GM/250 ML VIAL IV ONE ×2 (12:22→13:28)
[2019-11-20] MEDS ORDERED: LARYING-O-JET KIT (LTA) ONE (12:58)
[2019-11-20] MEDS ORDERED: PHENYLEPHRINE 100MCG/ML 5ML SYR ONE (13:01)
[2019-11-20] MEDS ORDERED: HYDROmorphone INJ 2 MG/ML SYR/VIAL ONE (13:03)
[2019-11-20] MEDS ORDERED: ACETAMINOPHEN 1000 MG/100 ML IV IV ONE (14:32)
[2019-11-20] MEDS ORDERED: SUGAMMADEX SODIUM 200 MG/2 ML VIAL IV ONE ×2 (14:36)
--- NOTE | 2019-11-20 15:16 | Post Operative Brief Note ---
Immediate Post Op Note v1 Date of Surgery November 20, 2019 Pre & Post Diagnosis Operation Date: 11/20/19 08:00 Pre-Op Diagnosis: Perforated abdominal viscus, peritonitis, sepsis Post-Op Diagnosis: Perforated abdominal viscus, peritonitis, sepsis I identified the patient and participated in the time-out.: Yes Procedure Operation Date: 11/20/19 08:00 Actual Procedures p Exploratory Laparotomy, Sigmoid Colon Resection with Ostomy, Clyde-Rocha Drain x2 (Not Applicable) - Yunior Gomes MD Surgeon Yunior Gomes MD Superintendent [employer] DRAKE Brown Estimated Blood Loss 50 Findings Consistent with Post-Op Diagnosis sigmoid colon perforation, size about 2x3cm peritonitis with severe contamination, leak stool Fluids 2000ml Specimens sigmoid colon Drains [place] Catheter and Clyde-Rocha Drain (10mm flat drain x2) Anesthesia Type General Complications none Disposition Accompanied Patient To Recovery: Yes Disposition: Recovery Room Overlapping Procedure I was immediately available: during the entire case.
[2019-11-20] MEDS ORDERED: PSEUDOEPHEDRINE HCL 120 MG PO SCH (15:43)
--- NOTE | 2019-11-20 17:17 | Anesthesiology Progress Note ---
Date of Service November 20, 2019 Anesthesia Post Procedure Vital Signs Vital Signs: Temp Pulse Pulse Resp BP BP BP 11/20/19 17:00 37.3 C 111 H 15 150/70 H 11/20/19 16:50 115 H 19 121/77 11/20/19 16:40 113 H 14 105/80 11/20/19 16:30 118 H 17 138/88 11/20/19 16:20 117 H 15 134/88 11/20/19 16:10 118 H 16 129/76 11/20/19 16:00 117 H 13 127/97 11/20/19 15:50 103 H 12 124/68 11/20/19 15:40 106 H 12 119/72 11/20/19 15:33 36.4 C L 107 H 12 117/66 11/20/19 11:40 37.4 C 121 H 18 145/95 H 11/20/19 11:00 121 H 18 145/84 H 11/20/19 09:56 120 H 18 149/84 H 11/20/19 08:55 36.8 C 120 H 22 157/100 H 11/20/19 08:44 Pulse Ox 11/20/19 17:00 96 11/20/19 16:50 94 11/20/19 16:40 93 11/20/19 16:30 93 11/20/19 16:20 93 11/20/19 16:10 94 11/20/19 16:00 94 11/20/19 15:50 96 11/20/19 15:40 95 11/20/19 15:33 94 11/20/19 11:40 94 11/20/19 11:00 97 11/20/19 09:56 96 11/20/19 08:55 94 11/20/19 08:44 94 Pain Intensity Right Abdomen: Pain Intensity: 6 Transfer of Care Handoff Completed per policy Notes Mental Status: alert / awake / arousable and participated in evaluation Patient Amnestic to Procedure: Yes Nausea / Vomiting: adequately controlled Pain: adequately controlled Airway Patency, RR, SpO2: stable & adequate BP & HR: stable & adequate Hydration State: stable & adequate Anesthetic Complications: no major complications apparent
[2019-11-20] MEDS ORDERED: OXYCODONE/ACETAMINOPHEN 5mg/325mg TAB PO PRN ×2 (17:36)
[2019-11-20] MEDS ORDERED: VANCOMYCIN 1 GM IV SCH (17:36)
[2019-11-20] MEDS ORDERED: ALBUTEROL HFA 8 GM INHALER INH PRN (17:52)
[2019-11-20] MEDS ORDERED: VANCOMYCIN CONSULT ACTIVE PRN (17:56)
--- NOTE | 2019-11-20 18:07 | Operative Report (OR) ---
DATE OF OPERATION: 11/20/2019 PREOPERATIVE DIAGNOSES: Bowel perforation, peritonitis, sepsis. POSTOPERATIVE DIAGNOSES: Sigmoid colon perforation, peritonitis, sepsis. OPERATION: Emergency exploratory laparotomy, sigmoid colon resection, colostomy. SURGEON: Yunior Gomes MD. ACTIVITY COORDINATOR: Kadie Read PA-C. ANESTHESIA: General. ESTIMATED BLOOD LOSS: About 50 mL. FINDINGS: Sigmoid colon perforation, size about 2 x 3 cm with leak of stool, significant peritonitis, severe contamination, peritonitis fluid with stool of about 500 mL. COMPLICATIONS: None. INDICATIONS FOR THE PROCEDURE: This is a 64-year-old female who presented to the ED with severe abdominal pain. The patient had a CT scan with diagnoses of free air inside the abdomen, possible bowel perforation. Once I reviewed with the patient history and physical exam, CT scan and all the labs, I recommended to do emergency exploratory laparotomy, possible bowel resection, possible stoma. I did talk to the patient about the benefit, risk, alternate procedure. I indicated the risks may include but not limited to such as bleeding, infection, abscess, sepsis, multiple organ failure, DVT, and even . The patient understands. She signed informed consent and I answered all questions. DETAILS OF PROCEDURE: We brought the patient to the OR, put the patient in the supine position. The patient received SCD on bilateral legs to prevent DVT. Also, patient received 400 mg of Cipro IV and 500 mg of Flagyl IV for prophylactic antibiotics, and the patient received general anesthesia without difficulty. Also, patient received Angeles catheter insertion and NG tube insertion. The abdomen was prepped and draped in routine sterile fashion. After time out, I made a midline incision getting into the abdomen without difficulty. Once we got into the abdomen, we found the patient had a lot of stool contamination inside the abdominal cavity with liquid stool. We suctioned all the liquid stool, about 500 mL; we sent as peritoneal fluid culture. Then, we found out patient had a sigmoid colon perforation near the junction of the sigmoid colon and the rectum. The perforation size of about 2 x 3 cm and there is some hard stool coming from the perforation site. The patient had a significant hard stool inside the sigmoid colon. At this moment, I mobilized the sigmoid colon and made a window near the rectum and then passed a 60 mm TIA staple for transection of the junction between the sigmoid and the rectum. The staple line was intact and then we used the clamp to clamp the distal sigmoid colon. Then we mobilized the sigmoid colon and we used the endovascular staple to take down the mesentery to the sigmoid colon. Left-sided ureter was identified and tried to protect the ureter all the time. Then, we made a window on the mesentery near the sigmoid colon proximally. Then, I used an 80 mm Endo-STEWART staple for transection of the sigmoid colon, the staple line intact and then we removed the specimen of sigmoid colon, size of about 10 cm long and hemostasis obtained. We then mobilized the descending colon and tried to create enough descending colon to create a colostomy. Based on teg patient has significant contamination, we decided to do the colostomy. At this moment, we used the 2 liters of normal saline with 1 g of vancomycin, flushed the abdominal cavity, and once the fluid was suctioned out, all cleared and hemostasis obtained, I put two 10 mm JOSEPH drainage on the right lower quadrant area and used 2-0 nylon, fixed the JOSEPH drain on the skin. Now we created a colostomy in the left lower quadrant area. I removed partial skin and then removed the fat tissue; rechecked the fascial layer, opened the fascial layer and opened peritoneum, passed 2 fingers easily. Then, I pulled out the descending colon to create a colostomy, then used 3-0 Vicryl, fixed the colon, attached it to the peritoneum interruptedly and then I used another 3-0 Vicryl, attached the colon on the fascial layer interruptedly, then used Bovie to remove the staple line on the colon and the colon with blood circulation was pink, then I created a colostomy by using 3-0 Vicryl, sutured the colon opening to the skin interruptedly. In this moment, also we closed the abdomen by using #1 PDS, closed the abdominal fascial layer in continuous running, closed subcutaneous layer by using 2-0 Vicryl continuous running, closed skin by using staple. Then, we put a colostomy bag on the colostomy site. The colostomy looked as pink, good blood circulation. No tension. Then we put all dressing on. The patient tolerated the procedure well. All instrument, needle and sponge count were correct x2 at the end of the case. The specimen was sent to pathology. The patient was transferred to recovery room in stable condition. I attest to the content of the Intraoperative Record and any orders documented therein. Any exception s are noted below.
[2019-11-20] MEDS: metroNIDAZOLE 500 MG/100 ML BAG IV SCH (18:14)
[2019-11-20] MEDS: D5W AND 1/2NSS + 20MEQ KCL 20 MEQ/1,000 ML BAG IV SCH (18:14)
--- NOTE | 2019-11-20 18:18 | Pharmacy Report ---
Pharmacy Abx Dose Short Note - Date of Service November 20, 2019 - Assessment & Plan Assessment 64 yo F ordered empiric vancomycin + cipro + flagyl for treatment of sigmoid colon perforation, peritonitis * s/p emergency exploratory laparotomy, sigmoid colon resection, colostomy on 11/19 * peritoneal culture pending Plan Vancomycin Patient meets criteria for vancomycin AUC dosing nomogram Loading dose: 2000 mg IV (24 mg/kg) Maintenance dose: 1000 mg (12 mg/kg) IV q12h * AUC/JUAN is the preferred PK/PD target for vancomycin * Target AUC/JUAN = 400-600 * AUC guided dosing is effective and associated with decreased risk of nephrotoxicity * Drug level will be obtained if medication is continued beyond 48 hours and/or change in clinical status Cipro 400 mg IV q12h (not pharm consult) Flagyl 500 mg IV q8h (not pharm consult) Pharmacy will continue to follow and will adjust dose/frequency as necessary. Thank you.
[2019-11-20] MEDS: HYDROmorphone INJ 1 MG/ML SYRINGE IV PRN ×2 (18:24→23:19)
[2019-11-20] MEDS ORDERED: VANCOMYCIN HCL 2,000 MG in SODIUM CHLORIDE 0.9% 500 ML IV ONE (19:00)
[2019-11-20] MEDS ORDERED: BUDESONIDE/FORMOTEROL FUMARATE 160/4.5 60 PUFFS/INHALER INH SCH (21:00)
[2019-11-20 21:31] LABS: Appearance Urine Clear (Clear); Bilirubin Urine Negative (Negative); Blood Urine 3+ (Negative); Color Urine Orange; Glucose Urine UA Negative (Negative); Ketones Urine Negative (Negative); Leukocyte Esterase Urine Negative (Negative); Nitrite Urine Negative (Negative); Protein Urine Trace (Negative); Specific Gravity Urine >= 1.030 (1.000-1.030); Urobilinogen Urine Negative (Negative)
[2019-11-20 21:37] LABS: Bacteria Urine Negative (Negative); Mucus Urine Present (None Prsent); RBC Urine >30 /hpf (0-4); WBC Urine 0-5 /hpf (0-5)
[2019-11-21] MEDS: CIPROFLOXACIN / D5W 400 MG/200 ML BAG IV SCH ×3 (00:12→21:41)
[2019-11-21] MEDS ORDERED: ROSUVASTATIN CALCIUM 20 MG TAB PO SCH (01:00)
[2019-11-21] MEDS: metroNIDAZOLE 500 MG/100 ML BAG IV SCH ×3 (02:08→16:57)
[2019-11-21] MEDS: HYDROmorphone INJ 1 MG/ML SYRINGE IV PRN ×2 (04:52→07:11)
[2019-11-21] MEDS: D5W AND 1/2NSS + 20MEQ KCL 20 MEQ/1,000 ML BAG IV SCH ×2 (04:57→14:18)
[2019-11-21 05:52] LABS: Basophils # (auto) 0.01 K/uL (0-0.2); Basophils % (auto) 0.1 %; Hematocrit (blood only) 39.3 % (37-47); Hemoglobin 12.6 g/dL (12.0-16.0); Immature Granulocytes # (auto) 0.05 K/uL (0.00-0.02); Immature Granulocytes % (auto) 0.3 %; Lymphocytes # (auto) 1.07 K/uL (1.2-3.4); Lymphocytes % (auto) 6.9 %; Mean Corpuscular Hgb Conc 32.1 g/dL (32-36); Mean Corpuscular Volume 90.3 fL (80-100); Mean Platelet Volume 10.3 fL (7.4-10.4); Monocytes # (auto) 0.96 K/uL (0.11-0.59); Monocytes % (auto) 6.2 %; Neutrophils # (auto) 13.46 K/uL (1.4-6.5); Neutrophils % (auto) 86.5 %; Platelet Count 188 K/uL (130-400); RDW Coefficient of Variation 14.8 % (11.5-14.5); RDW Standard Deviation 49.6 fL (36.4-46.3); Red Blood Count 4.35 M/uL (4.2-5.4); White Blood Count 15.55 K/uL (4.8-10.8)
[2019-11-21 06:22] LABS: BUN Creatinine Ratio 15.6 (10-20); Calcium 8.1 mg/dl (8.5-10.1); Creatinine Clr Calc Pharmacy 79.5 ml/min; Est GFR (African American) 93.8; Est GFR (Non-African American) 80.9; Potassium 4.2 mmol/L (3.5-5.1)
[2019-11-21 06:36] LABS: Albumin Globulin Ratio 0.9 (0.9-2); Bilirubin,Total 0.8 mg/dl (0.2-1); Globulin 3.4 gm/dl (2.5-4.0); Total Protein 6.4 gm/dl (6.4-8.2)
[2019-11-21] MEDS: VANCOMYCIN HCL 1,000 MG in SODIUM CHLORIDE 0.9% 250 ML IV SCH ×2 (08:33→19:10)
[2019-11-21] MEDS ORDERED: HYDROmorphone INJ 0.5 MG/0.5 ML SYR IV PRN (10:15)
[2019-11-21] MEDS ORDERED: LORazepam 0.5 MG/1 ML VIAL IV PRN (10:17)
[2019-11-21] MEDS ORDERED: HYDROmorphone INJ 1 MG/ML SYRINGE IV PRN (10:19)
[2019-11-21] MEDS ORDERED: PSEUDOEPHEDRINE HCL 30 MG TAB PO PRN (10:39)
[2019-11-21] MEDS: PANTOprazole 40 MG in SYRINGE 0 ML IV SCH (10:52)
[2019-11-21] MEDS: HYDROmorphone INJ 0.5 MG/0.5 ML SYR IV PRN ×3 (11:13→16:36)
[2019-11-21] MEDS ORDERED: CITALOPRAM 20 MG TAB PO SCH (11:30)
[2019-11-21] MEDS ORDERED: [UNRECOGNIZED DRUG - OTHER] PO SCH (11:30)
[2019-11-21] MEDS ORDERED: PANTOprazole 40 MG TAB PO SCH (11:30)
[2019-11-21] MEDS: MONTELUKAST SODIUM 10 MG TABLET PO SCH (12:01)
--- NOTE | 2019-11-21 12:19 | Surgery Progress Note ---
Date of Service November 21, 2019 Assessment & Plan (1) Perforated abdominal viscus: POD # 1 s/p ex lap with Sigmoid colon resection, Guido'ss procedure and end colostomy - Afebrile, tachycardic in low 100's - moderate postop pain, controlled with Dilaudid - NGT with 750 cc output, bilious - george drains with dark serosanguineous/bloody output - no return of bowel function - adequate urine output Plan: IV dilaudid prn pain, increase frequency to q2h prn Continue IV fluids Continue IV Abx: Cipro/flagyl/vanc Continue george drains Continue NGT to LIS, continue NPO may have mouth swabs/ice chips IV ativan 0.5 mg prn anxiety oral Suedafed prn cough IV Prontix dialy for GI prophlyaxis Start Lovenox 30 mg SQ tomorrow morning repeat am labs incentive spirometry PT/OT/case management consults continue Griffith for today encourage OOB to chair today if possible Dr. Gomes has seen and examined pt, agrees with above. Subjective feeling better than earlier this morning felt very frustrated this morning and anxious because of not getting Seudafed and worry if she were to start coughing she would disrupt sutures moderate pain, controlled with IV Dilaudid no n,v no chest pain/sob feels weak Physical Exam Constitutional: WD/WN, vitals as above no acute distress Respiratory: normal respiratory effort, lungs clear to auscultation no respiratory distress and no labored breathing Cardiovascular: Rate/Rhythm: regular rhythm and + tachycardic Gastrointestinal (Abdomen): Inspection/Auscultation: abdomen normal to inspection and normal bowel sounds (hypoactive); abdomen not distended Percussion/Palpation: + abdomen tender and abdomen soft; no guarding and abdomen not rigid Skin: no rashes, warm and dry + incision (covered with dry dressing, did not inspect today) Psychiatric: Orientation: alert and oriented x 3 Results & Data Vital Signs (Past 12 Hours) Vital Signs Temp Pulse Pulse Resp BP Pulse Ox 11/21/19 11:20 37.1 C 120 H 20 129/64 92 11/21/19 05:11 37.2 C 108 H 20 118/72 96 11/21/19 00:53 108 H Laboratory Results 11/21/19 11/21/19 11/20/19 Range/Units 05:36 05:36 21:15 WBC 15.55 H (4.8-10.8) K/uL RBC 4.35 (4.2-5.4) M/uL Hgb 12.6 (12.0-16.0) g/dL Hct 39.3 (37-47) % MCV 90.3 (80-100) fL MCH 29.0 (25-34) pg MCHC 32.1 (32-36) g/dL RDW Std Deviation 49.6 H (36.4-46.3) fL RDW Coeff of Sobia 14.8 H (11.5-14.5) % Plt Count 188 (130-400) K/uL MPV 10.3 (7.4-10.4) fL Immature Gran % (Auto) 0.3 % Neut % (Auto) 86.5 % Lymph % (Auto) 6.9 % [place] % (Auto) 6.2 % Eos % (Auto) 0.0 % Baso % (Auto) 0.1 % Immature Gran # (Auto) 0.05 H (0.00-0.02) K/uL Neut # (Auto) 13.46 H (1.4-6.5) K/uL Lymph # (Auto) 1.07 L (1.2-3.4) K/uL [place] # (Auto) 0.96 H (0.11-0.59) K/uL Eos # (Auto) 0.00 (0-0.5) K/uL Baso # (Auto) 0.01 (0-0.2) K/uL Sodium 134 L (136-145) mmol/L Potassium 4.2 (3.5-5.1) mmol/L Chloride 112 H (98-107) mmol/L Carbon Dioxide 24 (21-32) mmol/L Anion Gap -2.0 L (3-11) BUN 12 (7-18) mg/dl Creatinine 0.78 (0.6-1.2) mg/dl Est Cr Clr Drug Dosing 79.5 ml/min Est GFR ( Amer) 93.8 Est GFR (Non-Af Amer) 80.9 BUN/Creatinine Ratio 15.6 (10-20) Glucose 166 H (70-99) mg/dl Calcium 8.1 L (8.5-10.1) mg/dl Total Bilirubin 0.8 (0.2-1) mg/dl AST 16 (15-37) U/L ALT 27 (12-78) U/L Alkaline Phosphatase 47 (45-117) U/L Total Protein 6.4 (6.4-8.2) gm/dl Albumin 3.0 L (3.4-5.0) gm/dl Globulin 3.4 (2.5-4.0) gm/dl Albumin/Globulin Ratio 0.9 (0.9-2) Urine Color [place] Urine Appearance Clear (Clear) Urine pH 5.0 (4.5-7.5) Ur Specific [place] >= 1.030 (1.000-1.030) Urine Protein Trace H (Negative) Urine Glucose (UA) Negative (Negative) Urine Ketones Negative (Negative) Urine Blood 3+ H (Negative) Urine Nitrite Negative (Negative) Urine Bilirubin Negative (Negative) Urine Urobilinogen Negative (Negative) Ur Leukocyte Esterase Negative (Negative) Urine RBC >30 H (0-4) /hpf Urine WBC 0-5 (0-5) /hpf Ur Epithelial Cells 5-10 H (0-5) /lpf Urine Bacteria Negative (Negative) Urine Mucus Present A (None Prsent) Microbiology 11/20/19 12:54 Gram Stain - Final Peritoneal Fluid Aerobic and Anaerobic Culture - Preliminary Pin-point growth present, reincubating.
--- NOTE | 2019-11-21 17:17 | Electrocardiogram Report ---
Test Reason : Blood Pressure : / mmHG Vent. Rate : 113 BPM Atrial Rate : 113 BPM P-R Int : 140 ms QRS Dur : 082 ms QT Int : 308 ms P-R-T Axes : 037 -09 247 degrees QTc Int : 422 ms Sinus tachycardia Possible Anterior infarct , age undetermined Abnormal ECG When compared with ECG of 17-OCT-2007 12:27, Borderline criteria for Anterior infarct are now Present T wave inversion now evident in Inferolateral leads Confirmed by Martínez Curiel ([id number]) on 11/21/2019 5:17:24 PM Referred By: REFERRED SELF Confirmed By:Martínez Curiel
[2019-11-21] MEDS ORDERED: ACETAMINOPHEN 1,000 MG/100 ML VIAL IV STA (23:12)
[2019-11-22] MEDS: D5W AND 1/2NSS + 20MEQ KCL 20 MEQ/1,000 ML BAG IV SCH ×3 (00:13→21:45)
[2019-11-22] MEDS: HYDROmorphone INJ 0.5 MG/0.5 ML SYR IV PRN ×3 (01:18→19:22)
[2019-11-22] MEDS: metroNIDAZOLE 500 MG/100 ML BAG IV SCH ×3 (01:35→17:29)
[2019-11-22] MEDS ORDERED: VANCOMYCIN TROUGH ONE (07:30)
[2019-11-22 07:50] LABS: Basophils # (auto) 0.01 K/uL (0-0.2); Basophils % (auto) 0.1 %; Eosinophils # (auto) 0.04 K/uL (0-0.5); Eosinophils % (auto) 0.3 %; Hematocrit (blood only) 36.1 % (37-47); Hemoglobin 11.9 g/dL (12.0-16.0); Immature Granulocytes # (auto) 0.04 K/uL (0.00-0.02); Immature Granulocytes % (auto) 0.3 %; Lymphocytes # (auto) 0.98 K/uL (1.2-3.4); Lymphocytes % (auto) 7.1 %; Mean Corpuscular Hemoglobin 29.3 pg (25-34); Mean Corpuscular Volume 88.9 fL (80-100); Monocytes # (auto) 0.56 K/uL (0.11-0.59); Monocytes % (auto) 4.1 %; Neutrophils # (auto) 12.08 K/uL (1.4-6.5); Neutrophils % (auto) 88.1 %; Platelet Count 153 K/uL (130-400); RDW Coefficient of Variation 14.8 % (11.5-14.5); RDW Standard Deviation 48.2 fL (36.4-46.3); Red Blood Count 4.06 M/uL (4.2-5.4); White Blood Count 13.71 K/uL (4.8-10.8)
[2019-11-22] MEDS: ACETAMINOPHEN 325 MG TAB PO PRN (08:19)
[2019-11-22] MEDS: VANCOMYCIN HCL 1,000 MG in SODIUM CHLORIDE 0.9% 250 ML IV SCH ×3 (08:48→21:46)
[2019-11-22 08:49] LABS: BUN Creatinine Ratio 9.9 (10-20); Calcium 8.5 mg/dl (8.5-10.1); Creatinine Clr Calc Pharmacy 98.6 ml/min; Est GFR (African American) 110.6; Est GFR (Non-African American) 95.5
[2019-11-22] MEDS: ENOXAPARIN INJ 30 MG/0.3 ML SYR SQ SCH (08:49)
[2019-11-22] MEDS: CIPROFLOXACIN / D5W 400 MG/200 ML BAG IV SCH ×2 (11:19→22:06)
[2019-11-22] MEDS: PANTOprazole 40 MG in SYRINGE 0 ML IV SCH (11:20)
[2019-11-22] MEDS: MONTELUKAST SODIUM 10 MG TABLET PO SCH (12:24)
--- NOTE | 2019-11-22 14:10 | Surgery Progress Note ---
Date of Service November 22, 2019 Assessment & Plan (1) Perforated abdominal viscus: 64 year-old female presented to ED with sudden onset of abdominal pain that began last evening that increase in nature throughout the night. Associated sweats and lightheadedness. Leukocytosis of 14k. CT scan of abdomen and pelvis without contrast showing scattered pneumoperitoneum with ascites in pelvis and right colic gutter concerning for perforation, site of perforation unclear on CT scan. Abdomen is soft but involuntary and voluntary guarding with rigidity and rebound tenderness on examination. Plan: Discussed with patient findings on CT scan concerning for possible bowel perforation. Discussed need for exploration and possible bowel resection and ostomy to control infection and prevent further infection, sepsis, or even . Dr. Gomes discussed procedure and risks as well with patient. Informed consent obtained by patient. Continue IV Cipro/Flagyl Continue pain management To OR emergently for ex lap, possible bowel resection, possible ostomy Med/surg postop Keep NPO I ( Yunior Gomes MD ) did talk to pt about benefits, risks and alternative sof the exploratory laparotomy, possible bowel resection, stoma, the risks - infection, bleeding, abscess, sepsis, multiple organs failure, WI, DVT, , pt understood, she agrees with the surgery, I answered all questions, 11/22/2019 5:46PM, consult ID for sepsis, (2) Pneumoperitoneum: Subjective feeling better than this morning pain slightly better today no nausea, vomiting, chest pain, shortness of breath felt warm overnight still feeling very weak, PT worked with her this morning to get into chair and was a lot of work per patient Physical Exam Constitutional: WD/WN, vitals as above no acute distress Respiratory: normal respiratory effort; no respiratory distress Gastrointestinal (Abdomen): Inspection/Auscultation: abdomen normal to inspection; abdomen not distended Percussion/Palpation: + abdomen tender and abdomen soft; no guarding and abdomen not rigid colostomy beefy red with some bloody serosanguineous output in colostomy bag, no stool Skin: no rashes, warm and dry + incision (faith present, clean/dry/intact) Psychiatric: A+Ox3, euthymic affect Results & Data Vital Signs (Past 12 Hours) Vital Signs Temp Pulse Pulse Resp BP Pulse Ox 11/22/19 13:09 96 11/22/19 12:00 37.3 C 11/22/19 11:43 37.9 C H 119 H 19 148/84 H 97 11/22/19 09:37 37.1 C 92 11/22/19 07:43 37.9 C H 102 H 18 124/80 98 11/22/19 04:00 36.3 C L 96 H 18 138/83 96 11/22/19 02:26 103 H Laboratory Results 11/22/19 11/22/19 11/22/19 Range/Units 07:31 07:31 07:31 WBC 13.71 H (4.8-10.8) K/uL RBC 4.06 L (4.2-5.4) M/uL Hgb 11.9 L (12.0-16.0) g/dL Hct 36.1 L (37-47) % MCV 88.9 (80-100) fL MCH 29.3 (25-34) pg MCHC 33.0 (32-36) g/dL RDW Std Deviation 48.2 H (36.4-46.3) fL RDW Coeff of Sobia 14.8 H (11.5-14.5) % Plt Count 153 (130-400) K/uL MPV 10.0 (7.4-10.4) fL Immature Gran % (Auto) 0.3 % Neut % (Auto) 88.1 % Lymph % (Auto) 7.1 % [place] % (Auto) 4.1 % Eos % (Auto) 0.3 % Baso % (Auto) 0.1 % Immature Gran # (Auto) 0.04 H (0.00-0.02) K/uL Neut # (Auto) 12.08 H (1.4-6.5) K/uL Lymph # (Auto) 0.98 L (1.2-3.4) K/uL [place] # (Auto) 0.56 (0.11-0.59) K/uL Eos # (Auto) 0.04 (0-0.5) K/uL Baso # (Auto) 0.01 (0-0.2) K/uL Sodium 134 L (136-145) mmol/L Potassium 4.0 (3.5-5.1) mmol/L Chloride 105 (98-107) mmol/L Carbon Dioxide 25 (21-32) mmol/L Anion Gap 4.0 (3-11) BUN 6 L D (7-18) mg/dl Creatinine 0.63 (0.6-1.2) mg/dl Est Cr Clr Drug Dosing 98.6 ml/min Est GFR ( Amer) 110.6 Est GFR (Non-Af Amer) 95.5 BUN/Creatinine Ratio 9.9 L (10-20) Glucose 164 H (70-99) mg/dl Calcium 8.5 (8.5-10.1) mg/dl Vancomycin Trough 5.7 (See Comment) mcg/ml
--- NOTE | 2019-11-22 15:38 | Pharmacy Report ---
Pharmacy Abx Dose Short Note - Date of Service November 22, 2019 - Assessment & Plan Assessment * Ms Bajwa is a 64 year old F receiving Vanc/Cipro/Flagyl for treatment of perforated sigmoid colon/peritonitis. * Day #3 of antimicrobial therapy. * Peritoneal fluid cultures pending. Plan Vancomycin * Patient meets criteria for vancomycin AUC dosing nomogram * AUC/JUAN is the preferred PK/PD target for vancomycin * Target AUC/JUAN = 400-600 * AUC guided dosing is effective and associated with decreased risk of nephrotoxicity * Due to changes in renal function, Vanc dose increased to 1000mg IV q8h. * Vanc trough level ordered this morning to ensure safety of AUC dosing regimen further supports the need for dose increase. * Vanc level ordered for tomorrow, to evaluate safety of new regimen. Cipro 400mg IV q12h Flagyl 500mg IV q8h Pharmacy will continue to follow and will adjust dose/frequency as necessary. Thank you.
[2019-11-22] MEDS: ONDANSETRON INJ 2 MG/ML 2 ML VIAL IV PRN (18:09)
[2019-11-22] MEDS ORDERED: SODIUM CHLORIDE 0.9% 1000ML 1,000 ML IV ONE (23:16)
--- NOTE | 2019-11-22 23:24 | History & Physical Report ---
Date of Service November 22, 2019 Assessment & Plan (1) SIRS (systemic inflammatory response syndrome): Mrs. Bajwa is a 64 yo woman on POD #2 of exploratory laparotomy with partial sigmoid colon resection and colostomy formation for perforated abdominal viscus. Hospital Team was consulted for co-management of sepsis. - SIRS criteria met with tachycardia (HR 113 bmp) and elevated WBC (13.7) - WBC has trended down from admission, at which time it was elevated to 14.5 - patient has been tachycardic since admission on 11/19 - hemodynamically stable; BP at 157/92 -At this time patient appears to be slowly clinically improving. - etiology of infectious source is presumed to be abdominal given recent bowel perforation - blood cultures obtained, follow - UA on admission without concerns for infection; will reorder to asses for possible new urinary tract infection - lungs clear on exam, however will order CXR to assess for signs of PNA - lactate level ordered - continue IV ciprofloxacin (gram neg coverage including Pseudomonas), Flagyl (anaerobic coverage), and vancomycin (gram + coverage including MRSA). Low threshold to escalate gram negative coverage to Zosyn or cefepime if patient begins to clinically deteriorate - follow CBC in AM - review of Intake/Output suggest patient is +7L of volume, although exploratory laparotomy places patient at risk for significant volume loss; additional volume loss observed from colostomy bag - currently on D5W+1/2 normal saline at 100mls/hr for maintenance fluids - will order 1 L bolus of normal saline in the event patient is intravascularly volume depleted - no underlying CHF, low threshold to bolus as needed - albumin is mildly low at 3.0; consider IV albumin if saline alone does not resolve tachycardia (2) Tachycardia: - patient has been tachycardic since admission - HR now at 113 bpm - etiology thought to be due to SIRS response vs. intravascular volume depletion from GI losses and compensatory increase in HR - antimicrobial therapy as above to treat potential sepsis - 1 liter of normal saline bolus ordered - continue maintenance fluids as ordered by general surgery team - K at 4.0, will check mag level - goal K level > 4 and mag > 2; replace as needed (3) Perforated abdominal viscus: - POD 2 of exploratory laparotomy with sigmoid colon resection and colostomy formation by Dr. Gomes - continue Iv protonix Admission and Anticipated Discharge Date Admission Date: November 20, 2019 History of Present Illness Primary Care Provider: Jennifer Soliz MD Mrs. Bajwa is a 64 yo woman admitted on 11/20/19 with a perforated viscus, currently on POD 2 of exploratory laparotomy with partial sigmoid colon resection and colostomy formation by Dr. Gomes. Procedure was without complications. Patient is currently on Day 3 of IV flagyl and ciprofloxacin. IV Vancom[facility] was added to antimicrobial regimen today[facility] the evening of 11/21. Patient reports feeling well - still weak Allergies Allergy/AdvReac Type Severity Reaction Status Date / Time amoxicillin Allergy Intermediate blood in Verified 11/20/19 08:59 urine Home Medications Home Medications Medication Instructions Recorded Confirmed Type albuterol sulfate 90 mcg/actuation 2 puff INHALATION Q6H PRN #25.5 gm 07/02/19 11/20/19 Rx aerosol inhaler citalopram 20 mg tablet 10 mg PO QDL tab 07/02/19 11/20/19 History L. gasseri-B. bifidum-B longum 1.5 1 cap PO QDL 07/23/19 11/20/19 History billion cell capsule budesonide-formoterol HFA 160 2 puffs INH BID #10.2 gm 07/26/19 11/20/19 Rx mcg-4.5 mcg/actuation aerosol inhaler pseudoephedrine HCl 120 mg 120 mg PO Q12H #60 tab 08/23/19 11/20/19 Rx tablet,extended release acetaminophen [Tylenol] 325 mg PO QID PRN 11/20/19 11/20/19 History montelukast 10 mg PO QDL 11/20/19 11/20/19 History pantoprazole 40 mg PO QDL 11/20/19 11/20/19 History rosuvastatin 20 mg PO DAILY@0100 11/20/19 11/20/19 History Past Med/Surg History Medical History Allergic rhinitis (Chronic) Anxiety (Chronic) Asthma (Chronic) Depression GERD (gastroesophageal reflux disease) (Chronic) Hyperlipidemia (Chronic) Impaired fasting glucose (Chronic) Kidney stones Never smoker Obstructive sleep apnea (Chronic) Osteoarthritis (Chronic) Surgical History Frozen shoulder left "Put me to sleep to stretch it out" History of bilateral tubal ligation History of cholecystectomy History of colonoscopy History of right breast biopsy benign History of vaginal surgery removal of vagina polyp History of wisdom tooth extraction Family History Mother Family history of diabetes mellitus Aunt Family history of diabetes mellitus Family hx of colon cancer Uncle Family history of diabetes mellitus Family hx of colon cancer Grandmother (Paternal) Family history of diabetes mellitus Grandmother (Maternal) Family history of diabetes mellitus Other No family history of adverse response to anesthesia Social History (Updated 11/05/19 @ 13:46 by Dolores Stern) Preferred Language: Czech Communication Ability: Effective 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 Beliefs That Will Affect Care: None marital status: Current Living Situation: Spouse and Parent Current Living Situation Comment: Lives with and mother current occupational status: retired Other Information That Helps Us Care for You: No Feels Safe at Home: Yes Safety Concerns: Feels Safe At This Time Smoking Status: Never smoker Do You Dip or Chew Tobacco: No ; Second Hand Exposure: No ; Hx Alcohol Use: Yes Alcohol type: wine Hx Substance Use: No Review of Systems Constitutional: + weakness Respiratory: no cough and no dyspnea Gastrointestinal: + excessive flatulence Genitourinary: no dysuria Physical Exam Constitutional: WD/WN, vitals as above cooperative and + lethargic Eyes: PERRL, conjunctivae normal, anicteric sclerae ENMT: external ear and nose normal, oropharynx normal +NG tube in place draining bilious colored fluid Neck: normal visual inspection and trachea midline Respiratory: normal respiratory effort, lungs clear to auscultation no cough Auscultation: no crackles, no rales and no rhonchi Cardiovascular: RRR, no murmur, no edema Heart Sounds: normal S1 and normal S2 + patient wearing bilateral SCDs Gastrointestinal (Abdomen): Inspection/Auscultation: + abdomen distended, + abdominal surgical incision (covered with dry bandages; no surrounding erythema or warmth) and + abdominal surgical drain present ([address] draining serosanguinous fluid); + abnormal bowel sounds (hypoactive) Percussion/Palpation: abdomen soft; abdomen nontender and no guarding + colostomy bag draining bloody fluid Skin: no rashes, warm and dry Genitourinary: + Angeles catheter in place draining cloudy colored urine without visible blood clots Results & Data Results & Data ([facility]) Vital Signs (Past 12 Hours) Vital Signs Temp Pulse Pulse Resp BP Pulse Ox 11/22/19 19:24 36.6 C 16 157/92 H 95 11/22/19 18:09 93 11/22/19 16:08 113 H 11/22/19 15:47 36.9 C 104 H 18 134/78 91 11/22/19 13:09 96 11/22/19 12:00 37.3 C 11/22/19 11:43 37.9 C H 119 H 19 148/84 H 97 Code Status & VTE Plan VTE Prophylaxis Plan VTE Prophylaxis will be ordered: Yes Supervising Physician Co-Signing Physician Notes Attending addendum: I have physically seen this patient, have supervised the medical residents activities, and agree with the H&P unless as otherwise noted. Assessment and Plan: SIRS- Tachycardia with heart rate 113. WBC increased to 13.7. Appears somewhat dehydrated. Give normal saline bolus of 1 L,, then continue present fluids. Agree with IV Cipro and Flagyl, since patient overall appears to be clinically improving. Changed to Zosyn IV of cefepime IV if clinically worsens. Follow vital signs, daily laboratories and urine output. We will follow along during hospital stay. Remainder of orders and notations as noted. Resident Activity Tracking Resident Involvement: Resident Care Provided Care Provided: Adult Hospital Medicine
[2019-11-23 00:40] LABS: Appearance Urine Slightly Cloudy (Clear); Bilirubin Urine Negative (Negative); Blood Urine 1+ (Negative); Color Urine Yellow; Glucose Urine UA 2+ (Negative); Ketones Urine 1+ (Negative); Leukocyte Esterase Urine Negative (Negative); Nitrite Urine Negative (Negative); Protein Urine 2+ (Negative); Specific Gravity Urine >= 1.030 (1.000-1.030); Urobilinogen Urine Negative (Negative); pH Urine 6.5 (4.5-7.5)
[2019-11-23 00:48] LABS: Amorphous Sediment Urine Present (None Prsent); Bacteria Urine Negative (Negative); Epithelial Cell Urine 0-5 /lpf (0-5); RBC Urine 0-4 /hpf (0-4); WBC Urine 0-5 /hpf (0-5)
[2019-11-23] MEDS: metroNIDAZOLE 500 MG/100 ML BAG IV SCH ×3 (02:22→18:19)
[2019-11-23] MEDS: VANCOMYCIN HCL 1,000 MG in SODIUM CHLORIDE 0.9% 250 ML IV SCH (05:38)
--- NOTE | 2019-11-23 06:25 | Billing Data ---
Date of Service November 23, 2019 Coding Level of Care Code 92014 Inpt Consult Level 3
[2019-11-23 06:36] LABS: Basophils # (auto) 0.01 K/uL (0-0.2); Basophils % (auto) 0.1 %; Eosinophils # (auto) 0.01 K/uL (0-0.5); Eosinophils % (auto) 0.1 %; Hematocrit (blood only) 37.1 % (37-47); Hemoglobin 12.4 g/dL (12.0-16.0); Immature Granulocytes # (auto) 0.06 K/uL (0.00-0.02); Immature Granulocytes % (auto) 0.4 %; Lymphocytes # (auto) 0.91 K/uL (1.2-3.4); Lymphocytes % (auto) 5.8 %; Mean Corpuscular Hemoglobin 29.2 pg (25-34); Mean Corpuscular Hgb Conc 33.4 g/dL (32-36); Mean Corpuscular Volume 87.3 fL (80-100); Mean Platelet Volume 10.2 fL (7.4-10.4); Monocytes # (auto) 0.77 K/uL (0.11-0.59); Monocytes % (auto) 4.9 %; Neutrophils # (auto) 14.04 K/uL (1.4-6.5); Neutrophils % (auto) 88.7 %; Platelet Count 186 K/uL (130-400); RDW Coefficient of Variation 14.5 % (11.5-14.5); RDW Standard Deviation 46.5 fL (36.4-46.3); Red Blood Count 4.25 M/uL (4.2-5.4)
--- NOTE | 2019-11-23 06:52 | Surgery Progress Note ---
Date of Service November 23, 2019 Assessment & Plan (1) Perforated abdominal viscus: afeb, vss- pt resting comfortably at present rec Dilaudid for pain min abd distention NG in place- may consider removal later today cont all IV atbx- sens on cult pending overall stable Results & Data Vital Signs (Past 12 Hours) Vital Signs Temp Pulse Pulse Resp BP Pulse Ox 11/23/19 04:00 36.5 C 96 H 18 128/78 93 11/22/19 23:50 36.7 C 114 H 20 142/74 H 95 11/22/19 22:20 100 H 11/22/19 19:24 36.6 C 16 157/92 H 95 PG Care Time/CCT Total # of Minutes Spent Total Time Spent with Patient: Total time spent is greater than 50% in coordination of care (as documented) at patient's floor/unit and/or counseling patient: Coding Level of Care Code None Diagnoses Perforated abdominal viscus R19.8
[2019-11-23 07:06] LABS: BUN Creatinine Ratio 9.9 (10-20); Calcium 8.3 mg/dl (8.5-10.1); Creatinine Clr Calc Pharmacy 132.1 ml/min; Est GFR (African American) 121.8; Est GFR (Non-African American) 105.1; Potassium 3.7 mmol/L (3.5-5.1)
--- NOTE | 2019-11-23 07:58 | XRay Report ---
SINGLE VIEW CHEST CLINICAL HISTORY: Sepsis. FINDINGS: 2 AP, portable, upright chest radiographs are compared to study dated 08/23/2019. The examin ation is degraded by portable technique and patient rotation. An enteric tube has been placed. The ti p projects below the diaphragm over the stomach. The cardiomediastinal silhouette is unremarkable. Th ere is elevation of the right hemidiaphragm and bibasilar atelectasis. No airspace consolidation is s een typical for pneumonia and there is no large pleural effusion. No pneumothorax is seen. The skelet al structures are osteopenic. The bony thorax is grossly intact. Cholecystectomy clips are noted in t he right upper quadrant. IMPRESSION: 1. An enteric tube has been placed as above. 2. No acute cardiopulmonary abnormality is identified. ACT 112: Negative or not required by law. Electronically signed by: Micky Frazier M.D. 11/23/2019 7:57 AM
[2019-11-23] MEDS: D5W AND 1/2NSS + 20MEQ KCL 20 MEQ/1,000 ML BAG IV SCH ×2 (08:55→18:18)
[2019-11-23] MEDS: ENOXAPARIN INJ 30 MG/0.3 ML SYR SQ SCH (08:56)
[2019-11-23] MEDS: CIPROFLOXACIN / D5W 400 MG/200 ML BAG IV SCH ×2 (11:00→22:22)
--- NOTE | 2019-11-23 11:52 | Hospitalist Progress Note ---
Date of Service November 23, 2019 Assessment & Plan (1) SIRS (systemic inflammatory response syndrome): Mrs. Carreon is a 64 yo woman on POD #3 of exploratory laparotomy with partial sigmoid colon resection and colostomy formation for perforated abdominal viscus. Hospital Team was consulted for co-management of sepsis. SEPSIS, present on admission, due to perforated viscous - SIRS criteria met with tachycardia (HR 113 bmp) and elevated WBC (13.7) WBC up slightly at 15k today but no fever, HR normal, BP stable CXR normal, no evidence of UTI, source is perforated viscous on admission blood culture growing probable anaerobic gram negative bacteria, continue on Cipro and Flagyl, can stop Vancomycin continue fluids at 100cc/hr, making adequate urine, not eating or drinking yet post op management by general surgery we will continue to follow closely (2) Tachycardia: resolved, HR is 81 today due to infection (3) Perforated abdominal viscus: s/p sigmoid resection, colostomy POD 3 today pain control with IV narcotics NGT in place, draining bilious fluid Admission and Anticipated Discharge Date Admission Date: November 20, 2019 Subjective patient doing okay, just feels really fatigued, "I am so tired from everything" the pain in abdomen is well controlled, just pain over the surgical site does not feel short of breath, no cough, she is experiencing hiccups frequently no chest pain or pressure reviewed CXR, no evidency of pneumonia reviewed UA, no signs of UTI WBC today is up slightly at 15k, no true fever in over 24 hours reviewed chart since admission, POD 3 for ex lap and partial sigmoidectomy, colostomy formation for perforated viscous Review of Systems Review of Systems: All systems reviewed & are unremarkable except as noted in HPI & below Constitutional: + fatigue and + weakness; no fever, no chills and no sweats Respiratory: no cough, no dyspnea and no wheezing Cardiovascular: no chest pain and no edema Gastrointestinal: + abdominal pain (midline over surgical site) and + problem reported (ostomy in place); no nausea, no vomiting, no constipation and no diarrhea/loose stools Physical Exam Constitutional: well developed, well nourished, + ill appearing and + frail appearing; no acute distress Eyes: PERRL, conjunctivae normal, anicteric sclerae ENMT: external ear and nose normal, oropharynx normal Neck: trachea midline, no thyromegaly Respiratory: normal respiratory effort; no respiratory distress and no cough Auscultation: lungs clear to auscultation bilaterally and + diminished lung sounds (bases) Cardiovascular: Rate/Rhythm: regular rate and regular rhythm Heart Sounds: normal S1 and normal S2; no murmur Extremities: normal capillary refill; no edema Gastrointestinal (Abdomen): Inspection/Auscultation: + abdominal surgical incision (C/D/I with dressing intact, ostomy is pink, no stool), + abdominal surgical drain present (JOSEPH with minimal drainage) and + hypoactive bowel sounds Percussion/Palpation: + abdomen tender (over incision); no guarding and abdomen not rigid Musculoskeletal: no cyanosis or clubbing, extremities motor strength 5/5 Skin: no rashes, warm and dry Neurologic: patellar DTR's 2+ bilat, sensation intact and PERRL, EOMI, accommodation nl, no face palsy, no dysarthria Psychiatric: A+Ox3, euthymic affect Lymphatic: no cervical or axillary lymphadenopathy Results & Data Results & Data ([facility]) Vital Signs (Past 12 Hours) Vital Signs Temp Pulse Pulse Resp BP Pulse Ox 11/23/19 11:20 37.1 C 81 16 137/75 94 11/23/19 07:46 36.8 C 94 H 18 142/76 H 92 11/23/19 07:22 92 H 11/23/19 04:00 36.5 C 96 H 18 128/78 93 11/22/19 23:50 36.7 C 114 H 20 142/74 H 95 Laboratory Results Laboratory Results - last 24 hr 11/22/19 11/22/19 11/23/19 23:31 23:34 00:14 WBC RBC Hgb Hct MCV MCH MCHC RDW Std Deviation RDW Coeff of S[place] Plt Count MPV Immature Gran % (Auto) Neut % (Auto) Lymph % (Auto) [place] % (Auto) Eos % (Auto) Baso % (Auto) Immature Gran # (Auto) Neut # (Auto) Lymph # (Auto) [place] # (Auto) Eos # (Auto) Baso # (Auto) Sodium Potassium Chloride Carbon Dioxide Anion Gap BUN Creatinine Est Cr Clr Drug Dosing Est GFR ( Amer) Est GFR (Non-Af Amer) BUN/Creatinine Ratio Glucose POC Glucose Lactate 1.7 Calcium Magnesium Cancelled Urine Color Yellow Urine Appearance Slightly Cloudy Urine pH 6.5 Ur Specific [place] >= 1.030 Urine Protein 2+ H Urine Glucose (UA) 2+ H Urine Ketones 1+ H Urine Blood 1+ H Urine Nitrite Negative Urine Bilirubin Negative Urine Urobilinogen Negative Ur Leukocyte Esterase Negative Urine RBC 0-4 Urine WBC 0-5 Ur Epithelial Cells 0-5 Amorphous Sediment Present A Urine Bacteria Negative 11/23/19 11/23/19 11/23/19 00:39 06:21 06:21 WBC 15.80 H RBC 4.25 Hgb 12.4 Hct 37.1 MCV 87.3 MCH 29.2 MCHC 33.4 RDW Std Deviation 46.5 H RDW Coeff of Sobia 14.5 Plt Count 186 MPV 10.2 Immature Gran % (Auto) 0.4 Neut % (Auto) 88.7 Lymph % (Auto) 5.8 [place] % (Auto) 4.9 Eos % (Auto) 0.1 Baso % (Auto) 0.1 Immature Gran # (Auto) 0.06 H Neut # (Auto) 14.04 H Lymph # (Auto) 0.91 L [place] # (Auto) 0.77 H Eos # (Auto) 0.01 Baso # (Auto) 0.01 Sodium 134 L Potassium 3.7 Chloride 106 Carbon Dioxide 24 Anion Gap 5.0 BUN 5 L Creatinine 0.47 L Est Cr Clr Drug Dosing 132.1 Est GFR ( Amer) 121.8 Est GFR (Non-Af Amer) 105.1 BUN/Creatinine Ratio 9.9 L Glucose 167 H POC Glucose Lactate Calcium 8.3 L Magnesium 1.9 Urine Color Urine Appearance Urine pH Ur Specific [place] Urine Protein Urine Glucose (UA) Urine Ketones Urine Blood Urine Nitrite Urine Bilirubin Urine Urobilinogen Ur Leukocyte Esterase Urine RBC Urine WBC Ur Epithelial Cells Amorphous Sediment Urine Bacteria 11/23/19 10:10 WBC RBC Hgb Hct MCV MCH MCHC RDW Std Deviation RDW Coeff of S[place] Plt Count MPV Immature Gran % (Auto) Neut % (Auto) Lymph % (Auto) [place] % (Auto) Eos % (Auto) Baso % (Auto) Immature Gran # (Auto) Neut # (Auto) Lymph # (Auto) [place] # (Auto) Eos # (Auto) Baso # (Auto) Sodium Potassium Chloride Carbon Dioxide Anion Gap BUN Creatinine Est Cr Clr Drug Dosing Est GFR ( Amer) Est GFR (Non-Af Amer) BUN/Creatinine Ratio Glucose POC Glucose 153 H Lactate Calcium Magnesium Urine Color Urine Appearance Urine pH Ur Specific [place] Urine Protein Urine Glucose (UA) Urine Ketones Urine Blood Urine Nitrite Urine Bilirubin Urine Urobilinogen Ur Leukocyte Esterase Urine RBC Urine WBC Ur Epithelial Cells Amorphous Sediment Urine Bacteria Medications Administered Current Inpatient Medications Acetaminophen (Tylenol) 325 mg PO QID PRN PRN Reason: Pain Stop: 12/20/19 17:35 Last Admin: 11/22/19 08:19 Dose: 325 mg Documented by: Albuterol (Ventolin Hfa) 2 puffs INH Q6H PRN PRN Reason: Shortness Of Breath Stop: 12/20/19 17:51 Enoxaparin Sodium (Lovenox) 30 mg SQ QAM KENDRA Stop: 12/22/19 08:59 Last Admin: 11/23/19 08:56 Dose: 30 mg Documented by: Hydromorphone HCl (Dilaudid) 0.5 mg IV Q2H PRN PRN Reason: Moderate Pain (4-6) Stop: 12/05/19 10:14 Last Admin: 11/22/19 19:22 Dose: 0.5 mg Documented by: Hydromorphone HCl (Dilaudid) 0.25 mg IV Q2H PRN PRN Reason: Mild Pain (1-3) Stop: 12/05/19 10:14 Last Admin: 11/22/19 11:29 Dose: 0.25 mg Documented by: Hydromorphone HCl (Dilaudid) 1 mg IV Q2H PRN PRN Reason: Pain (7-10) Stop: 12/04/19 17:35 Ciprofloxacin (Cipro) 400 mg in 200 mls @ 100 mls/hr IV Q12H [facility]; Protocol Stop: 11/30/19 10:59 Last Infusion: 11/23/19 00:10 Dose: Infused Documented by: Potassium Chloride/Dextrose/Sod Cl (D5w And 1/2nss + 20meq Kcl) 20 meq in 1,000 mls @ 100 mls/hr IV .Q10H [facility] Stop: 12/20/19 17:59 Last Admin: 11/23/19 08:55 Dose: 100 mls/hr Documented by: Metronidazole (Flagyl) 500 mg in 100 mls @ 100 mls/hr IV Q8H [facility]; Protocol Stop: 11/30/19 09:59 Last Infusion: 11/23/19 03:30 Dose: Infused Documented by: Pantoprazole Sodium 40 mg/ (Syringe) 10 mls @ 5 mls/min IV DAILY@1100 [facility] Stop: 12/21/19 10:59 Last Admin: 11/22/19 11:20 Dose: 5 mls/min Documented by: Lorazepam (Ativan) 0.5 mg in 1 mls @ 1 mls/min IV Q4H PRN PRN Reason: Anxiety Stop: 12/21/19 10:16 Last Admin: 11/21/19 19:11 Dose: 1 mls/min Documented by: Vancomycin HCl 1,000 mg/ (Sodium Chloride) 270 mls @ 125 mls/hr IV Q8H [facility] Stop: 11/30/19 13:59 Last Infusion: 11/23/19 07:50 Dose: Infused Documented by: Miscellaneous Information (Consult) 1 ea N/A UD PRN PRN Reason: Consult Stop: 12/20/19 17:55 Montelukast Sodium (Singulair) 10 mg PO QDL [facility] Stop: 12/21/19 11:29 Last Admin: 11/22/19 12:24 Dose: 10 mg Documented by: Ondansetron HCl (Zofran) 4 mg IV Q6H PRN PRN Reason: Nausea Stop: 12/20/19 17:35 Last Admin: 11/22/19 18:09 Dose: 4 mg Documented by: Oxycodone/Acetaminophen (Percocet 5mg/325mg) 1 tab PO Q4H PRN PRN Reason: Pain Stop: 12/04/19 17:35 Oxycodone/Acetaminophen (Percocet 5mg/325mg) 2 tab PO Q4H PRN PRN Reason: Severe Pain Stop: 12/04/19 17:35 Pseudoephedrine HCl (Suphedrine Sinus Congestion) 60 mg PO Q6H PRN; Protocol PRN Reason: congestion Stop: 12/21/19 10:38 Rosuvastatin Calcium (Crestor) 20 mg PO DAILY@0100 [facility] Stop: 12/21/19 00:59 Last Admin: 11/21/19 00:15 Dose: Not Given Documented by: PG Care Time/CCT Total # of Minutes Spent Total Time Spent with Patient: Total time spent is greater than 50% in coordination of care (as documented) at patient's floor/unit and/or counseling patient: Coding Level of Care Code 35628 Subseq Hosp Care Lvl 2 Diagnoses SIRS (systemic inflammatory response syndrome) R65.10 Tachycardia R00.0 Perforated abdominal viscus R19.8
[2019-11-23] MEDS ORDERED: VANCOMYCIN TROUGH ONE (13:30)
[2019-11-23] MEDS: MONTELUKAST SODIUM 10 MG TABLET PO SCH (13:44)
[2019-11-23] MEDS: PANTOprazole 40 MG in SYRINGE 0 ML IV SCH (13:45)
[2019-11-24] MEDS: metroNIDAZOLE 500 MG/100 ML BAG IV SCH ×3 (01:56→17:24)
[2019-11-24] MEDS: D5W AND 1/2NSS + 20MEQ KCL 20 MEQ/1,000 ML BAG IV SCH ×4 (02:00→21:42)
[2019-11-24 06:51] LABS: Basophils # (auto) 0.03 K/uL (0-0.2); Basophils % (auto) 0.2 %; Eosinophils # (auto) 0.03 K/uL (0-0.5); Eosinophils % (auto) 0.2 %; Hematocrit (blood only) 35.9 % (37-47); Hemoglobin 12.1 g/dL (12.0-16.0); Immature Granulocytes # (auto) 0.12 K/uL (0.00-0.02); Immature Granulocytes % (auto) 0.9 %; Mean Corpuscular Hemoglobin 28.6 pg (25-34); Mean Corpuscular Hgb Conc 33.7 g/dL (32-36); Mean Corpuscular Volume 84.9 fL (80-100); Mean Platelet Volume 9.6 fL (7.4-10.4); Monocytes # (auto) 1.34 K/uL (0.11-0.59); Monocytes % (auto) 9.9 %; Neutrophils # (auto) 10.58 K/uL (1.4-6.5); Neutrophils % (auto) 77.8 %; Platelet Count 207 K/uL (130-400); RDW Coefficient of Variation 14.3 % (11.5-14.5); RDW Standard Deviation 44.5 fL (36.4-46.3); Red Blood Count 4.23 M/uL (4.2-5.4)
[2019-11-24 07:27] LABS: BUN Creatinine Ratio 8.5 (10-20); Calcium 7.9 mg/dl (8.5-10.1); Creatinine Clr Calc Pharmacy 124.4 ml/min; Est GFR (African American) 119.4; Potassium 3.5 mmol/L (3.5-5.1)
[2019-11-24] MEDS: ENOXAPARIN INJ 30 MG/0.3 ML SYR SQ SCH (08:21)
--- NOTE | 2019-11-24 08:56 | Surgery Progress Note ---
Date of Service November 24, 2019 Assessment & Plan (1) Perforated abdominal viscus: POD 4 Trever's WBC back down to 13 afebrile, HR improved overnight d/c NG, keep on sips for now IV cipro/flagyl Subjective feels a little better, not OOB as much yesterday, no nausea Physical Exam Gastrointestinal (Abdomen): Inspection/Auscultation: + abdomen distended (slightly) and + abdominal surgical incision (dressing dry) Percussion/Palpation: abdomen soft stoma pink, no output JOSEPH 10 cc #1, 20 cc #2 Results & Data Vital Signs (Past 12 Hours) Vital Signs Temp Pulse Pulse Resp BP Pulse Ox 11/24/19 07:31 36.7 C 87 16 136/77 95 11/24/19 07:13 75 11/24/19 03:22 36.6 C 92 H 16 131/80 95 11/24/19 00:55 92 H 11/23/19 23:34 36.5 C 98 H 18 149/87 H 94 PG Care Time/CCT Total # of Minutes Spent Total Time Spent with Patient: Total time spent is greater than 50% in coordination of care (as documented) at patient's floor/unit and/or counseling patient: Coding Level of Care Code None Diagnoses Perforated abdominal viscus R19.8
[2019-11-24] MEDS: MONTELUKAST SODIUM 10 MG TABLET PO SCH (10:13)
[2019-11-24] MEDS: PANTOprazole 40 MG in SYRINGE 0 ML IV SCH (11:26)
[2019-11-24] MEDS: CIPROFLOXACIN / D5W 400 MG/200 ML BAG IV SCH ×2 (11:26→23:48)
--- NOTE | 2019-11-24 12:00 | Hospitalist Progress Note ---
Date of Service November 24, 2019 Assessment & Plan (1) SIRS (systemic inflammatory response syndrome): Mrs. Carreon is a 64 yo woman on POD #3 of exploratory laparotomy with partial sigmoid colon resection and colostomy formation for perforated abdominal viscus. Hospital Team was consulted for co-management of sepsis. SEPSIS, present on admission, due to perforated viscous - SIRS criteria met with tachycardia (HR 113 bmp) and elevated WBC (13.7) WBC trending down to 13k from 15k no fever, HR normal, BP stable CXR normal, no evidence of UTI, source is perforated viscous on admission peritoneal fluid with Bacteroides and Clostridium (anaerobes), continue on Cipro and Flagyl decrease fluids slightly to 75cc/hr, once she is drinking enough stop fluids making adequate urine, plan to pull myers not eating or drinking yet post op management by general surgery, NGT to come out today we will continue to follow closely (2) Tachycardia: resolved, HR is stable for 48 hours due to infection (3) Perforated abdominal viscus: s/p sigmoid resection, colostomy POD 4 today pain control with IV narcotics NGT to be pulled today Admission and Anticipated Discharge Date Admission Date: November 20, 2019 Subjective patient says she is sleeping a lot, still very fatigued but it feels good to rest she says her pain is well controlled she is happy because surgery planning to d/c NGT today, RN will plan to remove myers as well per protocol she is breathing well, no fever/chills, no chest pain reviewed labs, WBC down to 13k from 15k, Na 133, BUN/Cr 4/0.5 peritoneal fluid culture with bacteroides and clostridium blood cultures no growth Review of Systems Review of Systems: All systems reviewed & are unremarkable except as noted in HPI & below Constitutional: + fatigue and + weakness; no fever, no chills and no sweats Respiratory: no cough and no dyspnea Cardiovascular: no chest pain, no syncope and no edema Gastrointestinal: + abdominal pain (mild, incisional); no nausea, no vomiting, no constipation and no diarrhea/loose stools (liquid from ostomy, small amount) Physical Exam Constitutional: well developed, well nourished, + ill appearing and + frail appearing; no acute distress Eyes: PERRL, conjunctivae normal, anicteric sclerae ENMT: external ear and nose normal, oropharynx normal Neck: trachea midline, no thyromegaly Respiratory: normal respiratory effort; no respiratory distress and no cough Auscultation: lungs clear to auscultation bilaterally and + diminished lung sounds (bases) Cardiovascular: Rate/Rhythm: regular rate and regular rhythm Heart Sounds: normal S1 and normal S2; no murmur Extremities: normal capillary refill; no edema Gastrointestinal (Abdomen): Inspection/Auscultation: + abdominal surgical incision (C/D/I with dressing intact, ostomy is sweaty, some liquid in bag), + abdominal surgical drain present (JOSEPH with minimal drainage, dark) and + hypoactive bowel sounds Percussion/Palpation: + abdomen tender (over incision); no guarding and abdomen not rigid Musculoskeletal: no cyanosis or clubbing, extremities motor strength 5/5 Skin: no rashes, warm and dry Neurologic: patellar DTR's 2+ bilat, sensation intact and PERRL, EOMI, accommodation nl, no face palsy, no dysarthria Psychiatric: A+Ox3, euthymic affect Lymphatic: no cervical or axillary lymphadenopathy Results & Data Results & Data ([facility]) Vital Signs (Past 12 Hours) Vital Signs Temp Pulse Pulse Resp BP Pulse Ox 11/24/19 11:47 37.1 C 86 18 164/77 H 90 11/24/19 07:31 36.7 C 87 16 136/77 95 11/24/19 07:13 75 11/24/19 03:22 36.6 C 92 H 16 131/80 95 11/24/19 00:55 92 H Laboratory Results Laboratory Results - last 24 hr 11/24/19 11/24/19 06:30 06:30 WBC 13.60 H RBC 4.23 Hgb 12.1 Hct 35.9 L MCV 84.9 MCH 28.6 MCHC 33.7 RDW Std Deviation 44.5 RDW Coeff of S[place] 14.3 Plt Count 207 MPV 9.6 Immature Gran % (Auto) 0.9 Neut % (Auto) 77.8 Lymph % (Auto) 11.0 [place] % (Auto) 9.9 Eos % (Auto) 0.2 Baso % (Auto) 0.2 Immature Gran # (Auto) 0.12 H Neut # (Auto) 10.58 H Lymph # (Auto) 1.50 [place] # (Auto) 1.34 H Eos # (Auto) 0.03 Baso # (Auto) 0.03 Sodium 133 L Potassium 3.5 Chloride 104 Carbon Dioxide 23 Anion Gap 6.0 BUN 4 L Creatinine 0.50 L Est Cr Clr Drug Dosing 124.4 Est GFR ( Amer) 119.4 Est GFR (Non-Af Amer) 103.0 BUN/Creatinine Ratio 8.5 L Glucose 179 H Calcium 7.9 L Medications Administered Current Inpatient Medications Acetaminophen (Tylenol) 325 mg PO QID PRN PRN Reason: Pain Stop: 12/20/19 17:35 Last Admin: 11/22/19 08:19 Dose: 325 mg Documented by: Albuterol (Ventolin Hfa) 2 puffs INH Q6H PRN PRN Reason: Shortness Of Breath Stop: 12/20/19 17:51 Enoxaparin Sodium (Lovenox) 30 mg SQ QAM KENDRA Stop: 12/22/19 08:59 Last Admin: 11/24/19 08:21 Dose: 30 mg Documented by: Hydromorphone HCl (Dilaudid) 0.5 mg IV Q2H PRN PRN Reason: Moderate Pain (4-6) Stop: 12/05/19 10:14 Last Admin: 11/22/19 19:22 Dose: 0.5 mg Documented by: Hydromorphone HCl (Dilaudid) 0.25 mg IV Q2H PRN PRN Reason: Mild Pain (1-3) Stop: 12/05/19 10:14 Last Admin: 11/22/19 11:29 Dose: 0.25 mg Documented by: Hydromorphone HCl (Dilaudid) 1 mg IV Q2H PRN PRN Reason: Pain (7-10) Stop: 12/04/19 17:35 Ciprofloxacin (Cipro) 400 mg in 200 mls @ 100 mls/hr IV Q12H [facility]; Protocol Stop: 11/30/19 10:59 Last Admin: 11/24/19 11:26 Dose: 100 mls/hr Documented by: Potassium Chloride/Dextrose/Sod Cl (D5w And 1/2nss + 20meq Kcl) 20 meq in 1,000 mls @ 100 mls/hr IV .Q10H [facility] Stop: 12/20/19 17:59 Last Admin: 11/24/19 11:36 Dose: 100 mls/hr Documented by: Metronidazole (Flagyl) 500 mg in 100 mls @ 100 mls/hr IV Q8H [facility]; Protocol Stop: 11/30/19 09:59 Last Admin: 11/24/19 10:11 Dose: 100 mls/hr Documented by: Pantoprazole Sodium 40 mg/ (Syringe) 10 mls @ 5 mls/min IV DAILY@1100 [facility] Stop: 12/21/19 10:59 Last Admin: 11/24/19 11:26 Dose: 5 mls/min Documented by: Lorazepam (Ativan) 0.5 mg in 1 mls @ 1 mls/min IV Q4H PRN PRN Reason: Anxiety Stop: 12/21/19 10:16 Last Admin: 11/21/19 19:11 Dose: 1 mls/min Documented by: Montelukast Sodium (Singulair) 10 mg PO QDL [facility] Stop: 12/21/19 11:29 Last Admin: 11/24/19 10:13 Dose: Not Given Documented by: Ondansetron HCl (Zofran) 4 mg IV Q6H PRN PRN Reason: Nausea Stop: 12/20/19 17:35 Last Admin: 11/22/19 18:09 Dose: 4 mg Documented by: Oxycodone/Acetaminophen (Percocet 5mg/325mg) 1 tab PO Q4H PRN PRN Reason: Pain Stop: 12/04/19 17:35 Oxycodone/Acetaminophen (Percocet 5mg/325mg) 2 tab PO Q4H PRN PRN Reason: Severe Pain Stop: 12/04/19 17:35 Pseudoephedrine HCl (Suphedrine Sinus Congestion) 60 mg PO Q6H PRN; Protocol PRN Reason: congestion Stop: 12/21/19 10:38 Rosuvastatin Calcium (Crestor) 20 mg PO DAILY@0100 [facility] Stop: 12/21/19 00:59 Last Admin: 11/21/19 00:15 Dose: Not Given Documented by: PG Care Time/CCT Total # of Minutes Spent Total Time Spent with Patient: Total time spent is greater than 50% in coordination of care (as documented) at patient's floor/unit and/or counseling patient: Coding Level of Care Code 32657 Subseq Hosp Care Lvl 2 Diagnoses SIRS (systemic inflammatory response syndrome) R65.10 Tachycardia R00.0 Perforated abdominal viscus R19.8
[2019-11-24] MEDS: HYDROmorphone INJ 0.5 MG/0.5 ML SYR IV PRN ×2 (16:38→23:56)
[2019-11-24] MEDS: ALUMINUM/MAGNESIUM SUSP 30 ML UDC PO PRN (21:43)
[2019-11-25] MEDS: metroNIDAZOLE 500 MG/100 ML BAG IV SCH ×3 (01:57→18:42)
[2019-11-25] MEDS: HYDROmorphone INJ 0.5 MG/0.5 ML SYR IV PRN (05:07)
[2019-11-25] MEDS: D5W AND 1/2NSS + 20MEQ KCL 20 MEQ/1,000 ML BAG IV SCH ×2 (07:00→18:42)
--- NOTE | 2019-11-25 08:03 | Surgery Progress Note ---
Date of Service November 25, 2019 Assessment & Plan (1) Perforated abdominal viscus: POD 5 Trever's resume Celexa, has prn ativan start clears cont IV cipro/flagyl labs pending Dr Rojas- pt seen in room- agree with above Subjective had better afternoon yesterday, some anxiety/disrupted sleep Physical Exam Gastrointestinal (Abdomen): Inspection/Auscultation: + abdominal surgical incision (clean, dry, no erythema); abdomen not distended Percussion/Palpation: abdomen soft stoma pink, no output Results & Data Vital Signs (Past 12 Hours) Vital Signs Temp Pulse Pulse Resp BP Pulse Ox 11/25/19 03:42 37 C 103 H 16 156/89 H 96 11/25/19 03:36 89 11/24/19 22:51 36.8 C 98 H 16 160/78 H 94 PG Care Time/CCT Total # of Minutes Spent Total Time Spent with Patient: Total time spent is greater than 50% in coordination of care (as documented) at patient's floor/unit and/or counseling patient: Coding Level of Care Code None Diagnoses Perforated abdominal viscus R19.8
[2019-11-25 08:56] LABS: BUN Creatinine Ratio 13.1 (10-20); Calcium 8.1 mg/dl (8.5-10.1); Creatinine Clr Calc Pharmacy 135.2 ml/min; Est GFR (African American) 122.7; Est GFR (Non-African American) 105.9; Potassium 3.5 mmol/L (3.5-5.1)
[2019-11-25] MEDS: ENOXAPARIN INJ 30 MG/0.3 ML SYR SQ SCH (09:12)
[2019-11-25 09:33] LABS: Hemoglobin 11.6 g/dL (12.0-16.0); Mean Corpuscular Hemoglobin 29.1 pg (25-34); Mean Corpuscular Hgb Conc 34.1 g/dL (32-36); Mean Corpuscular Volume 85.2 fL (80-100); Mean Platelet Volume 9.1 fL (7.4-10.4); Nucleated RBC # (auto) 0.04 K/uL (0-0); Nucleated RBC % (auto) 0.3 %; Platelet Count 228 K/uL (130-400); RDW Coefficient of Variation 14.4 % (11.5-14.5); RDW Standard Deviation 45.1 fL (36.4-46.3); Red Blood Count 3.99 M/uL (4.2-5.4); White Blood Count 12.55 K/uL (4.8-10.8)
[2019-11-25 09:57] LABS: Basophils # (auto) 0.05 K/uL (0-0.2); Basophils % (auto) 0.4 %; Echinocytes 1+; Eosinophils # (auto) 0.14 K/uL (0-0.5); Eosinophils % (auto) 1.1 %; Immature Granulocytes # (auto) 0.31 K/uL (0.00-0.02); Immature Granulocytes % (auto) 2.5 %; Lymphocytes # (auto) 2.01 K/uL (1.2-3.4); Monocytes # (auto) 1.92 K/uL (0.11-0.59); Monocytes % (auto) 15.3 %; Neutrophils # (auto) 8.12 K/uL (1.4-6.5); Neutrophils % (auto) 64.7 %
[2019-11-25] MEDS: CITALOPRAM 20 MG TAB PO SCH (10:12)
[2019-11-25] MEDS: PANTOprazole 40 MG TAB PO SCH (10:13)
--- NOTE | 2019-11-25 10:23 | Infectious Disease Consult ---
Date of Consultation November 25, 2019 Assessment & Plan (1) Perforated abdominal viscus: continue current abx, would give 14 days total. can change to po when she is eating a regular diet, would maintain IV abx for now. History of Present Illness Attending Physician: Yunior Gomes MD pt admitted with sudden onset abd pain x [address] abd in ER revealed perforation, she was taken to OR on 11/19 and was found to have a perforated sigmoid colon with peritonitis and leakage of stool. fluid culture growing bacteroides and clostridium, she is on IV cipro and flagyl and tolerating well. she has an allergy to pcn. she is currently afebrile. she states overall she is feeling better. pain controlled. states she did not sleep well and is tired. no f/c. no cp, sob, cough. no abd pain currently. no n/v/d. she states she is to begin clear liquids today but is not hungry currently. blood cultures are negative to date. Allergies Allergy/AdvReac Type Severity Reaction Status Date / Time amoxicillin Allergy Intermediate blood in Verified 11/20/19 08:59 urine Home Medications Home Medications Medication Instructions Recorded Confirmed Type albuterol sulfate 90 mcg/actuation 2 puff INHALATION Q6H PRN #25.5 gm 07/02/19 11/20/19 Rx aerosol inhaler citalopram 20 mg tablet 10 mg PO QDL tab 07/02/19 11/20/19 History L. gasseri-B. bifidum-B longum 1.5 1 cap PO QDL 07/23/19 11/20/19 History billion cell capsule budesonide-formoterol HFA 160 2 puffs INH BID #10.2 gm 07/26/19 11/20/19 Rx mcg-4.5 mcg/actuation aerosol inhaler pseudoephedrine HCl 120 mg 120 mg PO Q12H #60 tab 08/23/19 11/20/19 Rx tablet,extended release acetaminophen [Tylenol] 325 mg PO QID PRN 11/20/19 11/20/19 History montelukast 10 mg PO QDL 11/20/19 11/20/19 History pantoprazole 40 mg PO QDL 11/20/19 11/20/19 History rosuvastatin 20 mg PO DAILY@0100 11/20/19 11/20/19 History Patient History Medical History Allergic rhinitis (Chronic) Anxiety (Chronic) Asthma (Chronic) Depression GERD (gastroesophageal reflux disease) (Chronic) Hyperlipidemia (Chronic) Impaired fasting glucose (Chronic) Kidney stones Never smoker Obstructive sleep apnea (Chronic) Osteoarthritis (Chronic) Surgical History Frozen shoulder left "Put me to sleep to stretch it out" History of bilateral tubal ligation History of cholecystectomy History of colonoscopy History of right breast biopsy benign History of vaginal surgery removal of vagina polyp History of wisdom tooth extraction Family History Mother Family history of diabetes mellitus Aunt Family history of diabetes mellitus Family hx of colon cancer Uncle Family history of diabetes mellitus Family hx of colon cancer Grandmother (Paternal) Family history of diabetes mellitus Grandmother (Maternal) Family history of diabetes mellitus Other No family history of adverse response to anesthesia Social History Preferred Language: Malawian Communication Ability: Effective Asp Net Developer Required: No Beliefs That Will Affect Care: None marital status: Current Living Situation: Spouse and Parent Current Living Situation Comment: Lives with and mother current occupational status: retired Other Information That Helps Us Care for You: No Feels Safe at Home: Yes Safety Concerns: Feels Safe At This Time Smoking Status: Never smoker Do You Dip or Chew Tobacco: No ; Second Hand Exposure: No ; Hx Alcohol Use: Yes Alcohol type: wine Hx Substance Use: No Review of Systems Review of Systems: All systems reviewed & are unremarkable except as noted in HPI & below Physical Exam Constitutional: WD/WN, vitals as above Eyes: PERRL, conjunctivae normal, anicteric sclerae ENMT: external ear and nose normal, oropharynx normal Mouth: + dry oral mucous membranes Neck: normal visual inspection Respiratory: normal respiratory effort, lungs clear to auscultation Cardiovascular: RRR, no murmur, no edema Gastrointestinal (Abdomen): normal bowel sounds, soft, nontender, no hepatosplenomegaly Percussion/Palpation: abdomen soft; abdomen nontender and no guarding Musculoskeletal: no cyanosis or clubbing, extremities motor strength 5/5 Skin: no rashes, warm and dry Psychiatric: A+Ox3, euthymic affect Results & Data ([facility]) Vital Signs (Past 12 Hours) Vital Signs Temp Pulse Pulse Resp BP BP Pulse Ox 11/25/19 07:00 36.4 C L 84 18 138/63 95 11/25/19 03:42 37 C 103 H 16 156/89 H 96 11/25/19 03:36 89 11/24/19 22:51 36.8 C 98 H 16 160/78 H 94 Laboratory Results Microbiology 11/20/19 12:54 Peritoneal Fluid Gram Stain - Final 11/20/19 12:54 Peritoneal Fluid Aerobic and Anaerobic Culture - Final Bacteroides thetaiotaomicron Clostridium sp not perfringens 11/22/19 18:38 Blood Aerobic Blood Culture - Preliminary No growth in Aerobic bottle after 48 hours. 11/22/19 18:38 Blood Anaerobic Blood Culture - Preliminary No growth in Anaerobic bottle after 48 hours. 11/22/19 20:10 Blood Aerobic Blood Culture - Preliminary No growth in Aerobic bottle after 48 hours. 11/22/19 20:10 Blood Anaerobic Blood Culture - Final PG Care Time/CCT Total # of Minutes Spent Total Time Spent with Patient: Total time spent is greater than 50% in coordination of care (as documented) at patient's floor/unit and/or counseling patient: Coding Level of Care Code 12866 Inpt Consult Level 4 Diagnoses Perforated abdominal viscus R19.8
[2019-11-25] MEDS: CIPROFLOXACIN / D5W 400 MG/200 ML BAG IV SCH ×2 (11:25→23:50)
[2019-11-25] MEDS: MONTELUKAST SODIUM 10 MG TABLET PO SCH (13:18)
--- NOTE | 2019-11-25 13:49 | Hospitalist Progress Note ---
Date of Service November 25, 2019 Assessment & Plan (1) SIRS (systemic inflammatory response syndrome): Mrs. Carreon is a 64 yo woman now status post exploratory laparotomy with partial sigmoid colon resection and colostomy formation for perforated abdominal viscus on 11/19. The perforation was thought to be secondary to a very hard fecal impaction in the sigmoid colon. Hospital Team was consulted for co- management of sepsis. SEPSIS, present on admission, due to perforated viscous - SIRS criteria met with tachycardia (HR 113 bmp) and elevated WBC (13.7) WBC trending down to 12 k from 15k no fever, HR normal, BP stable CXR normal, no evidence of UTI, source is perforated viscous on admission Blood cultures-no growth to date -peritoneal fluid with Bacteroides and Clostridium (anaerobes), continue on Cipro and Flagyl IV for now and then convert to p.o. to finish a 14-day course as per ID recommendation -Continue IV fluids-would recommend decreasing if p.o. intake increases by tomorrow -Continue to follow blood cultures (2) Tachycardia: resolved, secondary to sepsis -Treating with antibiotics and fluids as above' (3) Perforated abdominal viscus: s/p sigmoid resection, colostomy as above, secondary to fecal impaction in the sigmoid colon Needs wound care for ostomy teaching -Continue pain control with IV Dilaudid sparingly as is causing her significant fatigue, p.o. Percocet also ordered NGT has been pulled, Angeles catheter pulled JOSEPH drains x2 remain in place Postop surgical management as per surgery team (4) Chronic sinusitis: With a long history of allergies and chronic sinusitis -Add on nasal saline -Discouraged use of Sudafed frequently as it is a vasoconstrictor while trying to heal from her surgery -Continue Singulair -Add on loratadine 10 mg daily -Patient reports Flonase in the past caused her significant headaches-we will avoid use -Uses albuterol as needed for previous diagnosis of asthma although recent consultation with pulmonology as an outpatient to reveal she likely does not have asthma (5) GERD (gastroesophageal reflux disease): Continue Protonix (6) Hyperlipidemia: Now taking p.o. -Restart rosuvastatin (7) Anxiety: Taking p.o. -Restart citalopram (8) Obstructive sleep apnea: Mild on sleep study in 2012-could not tolerate CPAP at that time (9) DVT prophylaxis: Lovenox 30 mg SQ once daily Disposition-[facility] The hospitalist service will continue to follow Admission and Anticipated Discharge Date Admission Date: November 20, 2019 Anticipated date of discharge: 11/28/19 Subjective Patient reports felt short of breath although pulse ox was normal as per nursing. She applied oxygen and feels better. She is unable to take deep breaths due to bloating and abdominal pain. She feels that her allergies are bad since being in the hospital and also with NG tube exacerbating her chronic nasal congestion. Denies chest pains. Has been belching a lot today and just started some clear liquids. Continues to feel very lethargic but is improved today from previous. Review of Systems Review of Systems: All systems reviewed & are unremarkable except as noted in HPI & below Physical Exam Constitutional: average body habitus; no acute distress Eyes: + conjunctival abnormality (Mild conjunctiva and watery discharge OU) and + anicteric sclerae Neck: trachea midline, no thyromegaly Respiratory: normal respiratory effort, lungs clear to auscultation Cardiovascular: RRR, no murmur, no edema Chest (Breasts): Chest: normal inspection of chest Gastrointestinal (Abdomen): Inspection/Auscultation: + abdomen distended (Mild but soft) and normal bowel sounds; + abdomen abnormal to inspection (Colostomy bag in place with small amount of gas and brown clear liquid) Percussion/Palpation: + abdomen tender (Over incision with dressing in place) and abdomen soft; no guarding Musculoskeletal: Extremities: extremities normal to inspection; no cyanosis and no clubbing Skin: no rashes, warm and dry Neurologic: moves all extremities and awake; no focal motor deficits Psychiatric: Orientation: alert, oriented to person, oriented to place, oriented to time and cooperative Eye Contact: good eye contact Speech: normal rate/rhythm/volume of speech Affect: + flat affect Lymphatic: no lymphedema Results & Data Results & Data ([facility]) Vital Signs (Past 12 Hours) Vital Signs Temp Pulse Pulse Resp BP BP Pulse Ox 11/25/19 11:00 36.4 C L 83 18 148/83 H 96 11/25/19 08:00 82 11/25/19 07:00 36.4 C L 84 18 138/63 95 11/25/19 03:42 37 C 103 H 16 156/89 H 96 11/25/19 03:36 89 Laboratory Results 11/25/19 11/25/19 11/25/19 Range/Units 09:18 08:30 08:30 WBC 12.55 H Cancelled RBC 3.99 L Cancelled Hgb 11.6 L Cancelled Hct 34.0 L Cancelled MCV 85.2 Cancelled MCH 29.1 Cancelled MCHC 34.1 Cancelled RDW Std Deviation 45.1 Cancelled RDW Coeff of Sobia 14.4 Cancelled Plt Count 228 Cancelled MPV 9.1 Cancelled Immature Gran % (Auto) 2.5 Cancelled Neut % (Auto) 64.7 Cancelled Lymph % (Auto) 16.0 Cancelled [place] % (Auto) 15.3 Cancelled Eos % (Auto) 1.1 Cancelled Baso % (Auto) 0.4 Cancelled Immature Gran # (Auto) 0.31 H Cancelled Neut # (Auto) 8.12 H Cancelled Lymph # (Auto) 2.01 Cancelled [place] # (Auto) 1.92 H Cancelled Eos # (Auto) 0.14 Cancelled Baso # (Auto) 0.05 Cancelled Absolute Nucleated RBC 0.04 H Cancelled Nucleated RBC % (auto) 0.3 Cancelled Neutrophils % (Manual) Cancelled Band Neutrophils % Cancelled Lymphocytes % (Manual) Cancelled Prolymphocyte % Cancelled Reactive Lymphs % (Man) Cancelled Monocytes % (Manual) Cancelled Eosinophils % (Manual) Cancelled Basophils % (Manual) Cancelled Metamyelocytes % (Man) Cancelled Myelocytes % (Man) Cancelled Promyelocytes % (Man) Cancelled Blast Cells % (Manual) Cancelled Plasma Cell % (Manual) Cancelled Other Cells % Cancelled Nucleated RBC % Cancelled Neutrophils # (Manual) Cancelled Band Neutrophils # Cancelled Total Absolute Neuts Cancelled Lymphocytes # (Manual) Cancelled Prolymphocyte # Cancelled Reactive Lymphs # Cancelled Total Abs Lymphocytes Cancelled Monocytes # (Manual) Cancelled Eosinophils # (Manual) Cancelled Basophils # (Manual) Cancelled Metamyelocytes # (Man) Cancelled Myelocytes # (Manual) Cancelled Promyelocytes # (Man) Cancelled Blast Cells # (Man) Cancelled Plasma Cell # (Manual) Cancelled Other Cells # Cancelled Nucleated RBCs # (Man) Cancelled Hypersegmented Neuts Cancelled Hyposegmented Neuts Cancelled Hypogranular Neuts Cancelled Large Granular Lymphs Cancelled # Lrg Granular Lymphs Cancelled Hairy Cells Cancelled Smudge Cells Cancelled Toxic Granulation Cancelled Toxic Vacuolation Cancelled Dohle Bodies Cancelled Jagdish Rods Cancelled Platelet Estimate Cancelled Hypogranular Platelets Cancelled Clumped Platelets Cancelled Giant Platelets Cancelled Platelet Satelliting Cancelled RBC Morphology Cancelled Polychromasia Cancelled Hypochromasia Cancelled Poikilocytosis Cancelled Basophilic Stippling Cancelled Anisocytosis Cancelled Microcytosis Cancelled Macrocytosis Cancelled Spherocytes Cancelled Pappenheimer Bodies Cancelled Sickle Cells Cancelled Target Cells Cancelled Tear Drop Cells Cancelled Ovalocytes Cancelled Stomatocytes Cancelled Mitchell-[place] Bodies Cancelled Echinocytes 1+ Cancelled Acanthocytes (Spur) Cancelled Rouleaux Cancelled RBC Agglutinates Cancelled Schistocytes Cancelled RBC Morph Comment Cancelled Sezary Cell Cancelled Sodium 133 L (136-145) mmol/L Potassium 3.5 (3.5-5.1) mmol/L Chloride 104 (98-107) mmol/L Carbon Dioxide 25 (21-32) mmol/L Anion Gap 4.0 (3-11) BUN 6 L (7-18) mg/dl Creatinine 0.46 L (0.6-1.2) mg/dl Est Cr Clr Drug Dosing 135.2 ml/min Est GFR ( Amer) 122.7 Est GFR (Non-Af Amer) 105.9 BUN/Creatinine Ratio 13.1 (10-20) Glucose 159 H (70-99) mg/dl Calcium 8.1 L (8.5-10.1) mg/dl PG Care Time/CCT Total # of Minutes Spent Total Time Spent with Patient: Total time spent is greater than 50% in coordination of care (as documented) at patient's floor/unit and/or counseling patient: Coding Level of Care Code 03382 Subseq Hosp Care Lvl 2 Diagnoses SIRS (systemic inflammatory response syndrome) R65.10 Tachycardia R00.0 Perforated abdominal viscus R19.8 Chronic sinusitis J32.9 GERD (gastroesophageal reflux disease) K21.9 Hyperlipidemia E78.5 Anxiety F41.9 Obstructive sleep apnea G47.33 DVT prophylaxis Z29.9
[2019-11-25] MEDS: ALUMINUM/MAGNESIUM SUSP 30 ML UDC PO PRN (13:54)
[2019-11-25] MEDS: SODIUM CHLORIDE 0.65% NA SOLN 45 ML (OCEAN) NAE SCH ×2 (14:19→21:06)
[2019-11-25] MEDS: LORATADINE 10 MG TAB PO SCH (14:31)
[2019-11-25] MEDS: ACETAMINOPHEN 325 MG TAB PO PRN (21:07)
[2019-11-26] MEDS: metroNIDAZOLE 500 MG/100 ML BAG IV SCH ×3 (01:57→17:34)
[2019-11-26] MEDS: ALUMINUM/MAGNESIUM SUSP 30 ML UDC PO PRN ×2 (06:04→20:45)
[2019-11-26] MEDS: D5W AND 1/2NSS + 20MEQ KCL 20 MEQ/1,000 ML BAG IV SCH (06:04)
[2019-11-26 06:29] LABS: Hematocrit (blood only) 33.4 % (37-47); Hemoglobin 11.5 g/dL (12.0-16.0); Mean Corpuscular Hemoglobin 29.2 pg (25-34); Mean Corpuscular Hgb Conc 34.4 g/dL (32-36); Mean Corpuscular Volume 84.8 fL (80-100); Mean Platelet Volume 9.2 fL (7.4-10.4); Nucleated RBC # (auto) 0.08 K/uL (0-0); Nucleated RBC % (auto) 0.7 %; Platelet Count 224 K/uL (130-400); RDW Coefficient of Variation 14.3 % (11.5-14.5); RDW Standard Deviation 44.7 fL (36.4-46.3); Red Blood Count 3.94 M/uL (4.2-5.4); White Blood Count 10.76 K/uL (4.8-10.8)
[2019-11-26 07:01] LABS: BUN Creatinine Ratio 17.2 (10-20); Calcium 8.1 mg/dl (8.5-10.1); Creatinine Clr Calc Pharmacy 145.3 ml/min; Est GFR (African American) 124.5; Est GFR (Non-African American) 107.4; Potassium 3.3 mmol/L (3.5-5.1)
[2019-11-26 07:03] LABS: Basophils # (auto) 0.06 K/uL (0-0.2); Basophils % (auto) 0.6 %; Eosinophils % (auto) 1.9 %; Immature Granulocytes # (auto) 0.49 K/uL (0.00-0.02); Immature Granulocytes % (auto) 4.6 %; Lymphocytes # (auto) 1.99 K/uL (1.2-3.4); Lymphocytes % (auto) 18.5 %; Monocytes # (auto) 1.72 K/uL (0.11-0.59); Neutrophils % (auto) 58.4 %
--- NOTE | 2019-11-26 08:57 | Surgery Progress Note ---
Date of Service November 26, 2019 Assessment & Plan (1) Perforated abdominal viscus: POD 6 Trever's wbc 10.7 and patient afebrile continue IV abx today patient is having + output from ostomy will advance diet as tolerates today encourage ongoing ambulation and pt/ot as above. +formed stool in stoma bag. wound looks good not much appetite but would like to try more than just clears increase activity/PT/OT no acute surgical issues. Subjective patient feels well this AM. Is tolerating liquids without n/v/abd pain, but still not much of an appetite. She states she is normally up late at night, so her sleep/wake cycle is causing her to be more tired during the day when she is asked to work with pt/ot. Physical Exam Physical Exam: awake/alert Gastrointestinal (Abdomen): Inspection/Auscultation: + abdominal surgical incision (incision c/d/i, + stool from ostomy) and + abdominal surgical drain present (JPx2 (nelson fluid)) Percussion/Palpation: abdomen soft; abdomen nontender Results & Data Vital Signs (Past 12 Hours) Vital Signs Temp Pulse Pulse Resp BP Pulse Ox 11/26/19 07:01 36.6 C 79 20 154/87 H 98 11/26/19 04:29 36.5 C 75 18 162/91 H 97 11/25/19 23:55 71 11/25/19 23:47 36.5 C 80 20 139/82 99 PG Care Time/CCT Total # of Minutes Spent Total Time Spent with Patient: Total time spent is greater than 50% in coordination of care (as documented) at patient's floor/unit and/or counseling patient: Coding Level of Care Code None Diagnoses Perforated abdominal viscus R19.8
[2019-11-26] MEDS ORDERED: POTASSIUM CHLORIDE 20 MEQ TABCR PO STA ×2 (08:58→09:46)
[2019-11-26] MEDS: ROSUVASTATIN CALCIUM 20 MG TAB PO SCH (09:19)
[2019-11-26] MEDS: SODIUM CHLORIDE 0.65% NA SOLN 45 ML (OCEAN) NAE SCH ×3 (09:19→20:42)
[2019-11-26] MEDS: ENOXAPARIN INJ 30 MG/0.3 ML SYR SQ SCH (09:19)
[2019-11-26] MEDS: ONDANSETRON INJ 2 MG/ML 2 ML VIAL IV PRN (09:29)
[2019-11-26] MEDS: CIPROFLOXACIN / D5W 400 MG/200 ML BAG IV SCH ×2 (10:52→22:18)
[2019-11-26] MEDS: CITALOPRAM 20 MG TAB PO SCH (11:42)
[2019-11-26] MEDS: PANTOprazole 40 MG TAB PO SCH (11:44)
[2019-11-26] MEDS: MONTELUKAST SODIUM 10 MG TABLET PO SCH (11:45)
[2019-11-26] MEDS: LORATADINE 10 MG TAB PO SCH (11:45)
[2019-11-26] MEDS: POTASSIUM CHLORIDE / WTR 10 MEQ/100 ML PLCT IV SCH ×2 (11:58→13:01)
--- NOTE | 2019-11-26 13:58 | Hospitalist Progress Note ---
Date of Service November 26, 2019 Assessment & Plan (1) SIRS (systemic inflammatory response syndrome): Mrs. Carreon is a 64 yo woman now status post exploratory laparotomy with partial sigmoid colon resection and colostomy formation for perforated abdominal viscus on 11/19. The perforation was thought to be secondary to a very hard fecal impaction in the sigmoid colon. Hospitalist Team was consulted for co- management of sepsis. SEPSIS, present on admission, due to perforated viscous-now resolved - SIRS criteria met with tachycardia (HR 113 bmp) and elevated WBC (13.7) WBC trending down to 10 k from 15k no fever, HR normal, BP stable CXR normal, no evidence of UTI, source is perforated viscous on admission Blood cultures-remain no growth to date -peritoneal fluid with Bacteroides and Clostridium (anaerobes), continue on Cipro and Flagyl IV for now and then convert to p.o. to finish a 14-day course as per ID recommendation-will wait on converting to p.o. until tolerating food better without emesis -IV fluids discontinued -Continue to follow blood cultures (2) Tachycardia: resolved, secondary to sepsis -Treated infection with antibiotics and given IV fluids for hydration (3) Perforated abdominal viscus: s/p sigmoid resection, colostomy as above, secondary to fecal impaction in the sigmoid colon Needs wound care for ostomy teaching -Continue pain control with IV Dilaudid sparingly as is causing her significant fatigue, p.o. Percocet also ordered and acetaminophen NGT has been pulled, Angeles catheter pulled JOSEPH drains x2 remain in place Postop surgical management as per surgery team (4) Chronic sinusitis: With a long history of allergies and chronic sinusitis Was having an exacerbation of symptoms here especially with having NG tube in place Now improved with adding loratadine and nasal saline -Added on nasal saline -Discouraged use of Sudafed frequently as it is a vasoconstrictor while trying to heal from her surgery -Continue Singulair -Added on loratadine 10 mg daily -Patient reports Flonase in the past caused her significant headaches-we will avoid use -Uses albuterol as needed for previous diagnosis of asthma although recent consultation with pulmonology as an outpatient to reveal she likely does not have asthma (5) GERD (gastroesophageal reflux disease): Continue Protonix (6) Hyperlipidemia: -Continue rosuvastatin (7) Anxiety: -Continue citalopram (8) Obstructive sleep apnea: Mild on sleep study in 2013-could not tolerate CPAP at that time (9) Hyponatremia: Sodium decreased to 131 today-likely secondary to receiving hypotonic fluids -DC IV fluids -Encouraged p.o. intake today -Follow BMP in the morning (10) DVT prophylaxis: Lovenox 30 mg SQ once daily Disposition-[facility] Remain on medical floor with telemetry although can likely downgrade from telemetry status tomorrow if remains stable I strongly encouraged the patient and discussed with nursing about her getting out of bed for much longer periods of time to the chair and encouraging increased ambulation The hospitalist service will continue to follow Admission and Anticipated Discharge Date Admission Date: November 20, 2019 Subjective Patient feels she had a better night's rest last night. Her mind is not racing as much. However, this morning she continued to belch and then had an episode of brown emesis. She is however having significant output into her ostomy bag. She thinks the vomiting was induced by trying to swallow a potassium tablet. Denies much pain in the abdomen. Feels her postnasal drip and chronic sinus issues are improved since yesterday. Telemetry with normal sinus rhythm with PACs and PVCs, rates in the 70s Review of Systems Review of Systems: All systems reviewed & are unremarkable except as noted in HPI & below Physical Exam Constitutional: average body habitus; no acute distress Eyes: + anicteric sclerae Neck: trachea midline, no thyromegaly Respiratory: normal respiratory effort, lungs clear to auscultation Cardiovascular: RRR, no murmur, no edema Chest (Breasts): Chest: normal inspection of chest Gastrointestinal (Abdomen): Inspection/Auscultation: normal bowel sounds; + abdomen abnormal to inspection (Colostomy bag in place with large amount of brown liquid and gas) and abdomen not distended Percussion/Palpation: + a bdomen tender (Over incision with dressing in place) and abdomen soft; no guarding Musculoskeletal: Extremities: extremities normal to inspection; no cyanosis and no clubbing Skin: no rashes, warm and dry Neurologic: moves all extremities and awake; no focal motor deficits Psychiatric: Orientation: alert, oriented to person, oriented to place, oriented to time and cooperative Eye Contact: good eye contact Speech: normal rate/rhythm/volume of speech Affect: + flat affect Lymphatic: no lymphedema Results & Data Results & Data ([facility]) Vital Signs (Past 12 Hours) Vital Signs Temp Pulse Pulse Pulse Resp BP Pulse Ox 11/26/19 12:00 36.5 C 86 20 134/81 95 11/26/19 08:00 68 11/26/19 07:01 36.6 C 79 20 154/87 H 98 11/26/19 04:29 36.5 C 75 18 162/91 H 97 Laboratory Results 11/26/19 11/26/19 Range/Units 06:17 06:17 WBC 10.76 (4.8-10.8) K/uL RBC 3.94 L (4.2-5.4) M/uL Hgb 11.5 L (12.0-16.0) g/dL Hct 33.4 L (37-47) % MCV 84.8 (80-100) fL MCH 29.2 (25-34) pg MCHC 34.4 (32-36) g/dL RDW Std Deviation 44.7 (36.4-46.3) fL RDW Coeff of Sobia 14.3 (11.5-14.5) % Plt Count 224 (130-400) K/uL MPV 9.2 (7.4-10.4) fL Immature Gran % (Auto) 4.6 % Neut % (Auto) 58.4 % Lymph % (Auto) 18.5 % Hall % (Auto) 16.0 % Eos % (Auto) 1.9 % Baso % (Auto) 0.6 % Immature Gran # (Auto) 0.49 H (0.00-0.02) K/uL Neut # (Auto) 6.30 (1.4-6.5) K/uL Lymph # (Auto) 1.99 (1.2-3.4) K/uL Hall # (Auto) 1.72 H (0.11-0.59) K/uL Eos # (Auto) 0.20 (0-0.5) K/uL Baso # (Auto) 0.06 (0-0.2) K/uL Absolute Nucleated RBC 0.08 H (0-0) K/uL Nucleated RBC % (auto) 0.7 % Sodium 131 L (136-145) mmol/L Potassium 3.3 L (3.5-5.1) mmol/L Chloride 100 (98-107) mmol/L Carbon Dioxide 25 (21-32) mmol/L Anion Gap 5.0 (3-11) BUN 8 (7-18) mg/dl Creatinine 0.44 L (0.6-1.2) mg/dl Est Cr Clr Drug Dosing 145.3 ml/min Est GFR ( Amer) 124.5 Est GFR (Non-Af Amer) 107.4 BUN/Creatinine Ratio 17.2 (10-20) Glucose 160 H (70-99) mg/dl Calcium 8.1 L (8.5-10.1) mg/dl PG Care Time/CCT Total # of Minutes Spent Total Time Spent with Patient: Total time spent is greater than 50% in coordination of care (as documented) at patient's floor/unit and/or counseling patient: Coding Level of Care Code 36974 Subseq Hosp Care Lvl 2 Diagnoses SIRS (systemic inflammatory response syndrome) R65.10 Tachycardia R00.0 Perforated abdominal viscus R19.8 Chronic sinusitis J32.9 GERD (gastroesophageal reflux disease) K21.9 Hyperlipidemia E78.5 Anxiety F41.9 Obstructive sleep apnea G47.33 Hyponatremia E87.1 DVT prophylaxis Z29.9
[2019-11-27] MEDS: metroNIDAZOLE 500 MG/100 ML BAG IV SCH ×3 (02:11→17:16)
[2019-11-27 06:31] LABS: Hematocrit (blood only) 33.7 % (37-47); Hemoglobin 11.3 g/dL (12.0-16.0); Mean Corpuscular Hemoglobin 28.4 pg (25-34); Mean Corpuscular Hgb Conc 33.5 g/dL (32-36); Mean Corpuscular Volume 84.7 fL (80-100); Mean Platelet Volume 9.1 fL (7.4-10.4); Nucleated RBC # (auto) 0.08 K/uL (0-0); Nucleated RBC % (auto) 0.6 %; Platelet Count 285 K/uL (130-400); RDW Coefficient of Variation 14.2 % (11.5-14.5); RDW Standard Deviation 43.9 fL (36.4-46.3); Red Blood Count 3.98 M/uL (4.2-5.4); White Blood Count 12.12 K/uL (4.8-10.8)
[2019-11-27 07:00] LABS: Basophils # (auto) 0.03 K/uL (0-0.2); Basophils % (auto) 0.2 %; Eosinophils # (auto) 0.21 K/uL (0-0.5); Eosinophils % (auto) 1.7 %; Immature Granulocytes # (auto) 0.45 K/uL (0.00-0.02); Immature Granulocytes % (auto) 3.7 %; Lymphocytes # (auto) 2.06 K/uL (1.2-3.4); Monocytes # (auto) 1.65 K/uL (0.11-0.59); Monocytes % (auto) 13.6 %; Neutrophils # (auto) 7.72 K/uL (1.4-6.5); Neutrophils % (auto) 63.8 %; Toxic Granulation 2+
[2019-11-27 07:07] LABS: Calcium 8.5 mg/dl (8.5-10.1); Creatinine Clr Calc Pharmacy 154.4 ml/min; Est GFR (African American) 126.4; Est GFR (Non-African American) 109.1; Potassium 3.5 mmol/L (3.5-5.1)
[2019-11-27] MEDS: ENOXAPARIN INJ 30 MG/0.3 ML SYR SQ SCH (08:08)
[2019-11-27] MEDS: SODIUM CHLORIDE 0.65% NA SOLN 45 ML (OCEAN) NAE SCH ×3 (08:08→20:03)
[2019-11-27] MEDS: LORATADINE 10 MG TAB PO SCH (08:09)
[2019-11-27] MEDS: ROSUVASTATIN CALCIUM 20 MG TAB PO SCH (08:09)
[2019-11-27] MEDS: CITALOPRAM 20 MG TAB PO SCH (08:09)
[2019-11-27] MEDS: PANTOprazole 40 MG TAB PO SCH (08:09)
--- NOTE | 2019-11-27 09:30 | Surgery Progress Note ---
Date of Service November 27, 2019 Assessment & Plan (1) Perforated abdominal viscus: POD 7 Trever's WBC up slightly today 12 from 10, patient afebrile; will repeat cbc tomorrow blood cx's no growth to date continue abx for 14 days per infectious disease + ostomy output denies nausea/vomiting will advance diet today to low fiber will keep GEORGE drains for now continue ongoing encouragement for ambulation and pt/ot Supervising Physician Co-Signing Physician Notes pnt seen and examined, agree with above. s/p north's, doing well, +stool from ostomy, feels hungry. abd soft, nt, nd, ostomy pink and patent w/ stool and gas. GEORGE's with cloudy output. wbc 12 from 10. low fiber diet as tolerated, continue george's and iv abx. possible d/c tomorrow or Monday. f/u with Dr. Gomes. Subjective Patient states she is feeling well today and more awake. Since her episode of emesis yesterday she has been tolerating a liquid diet. Currently denies nausea/vomiting. Abdominal pain is controlled. She is working on ambulating more. Physical Exam Physical Exam: awake/alert Gastrointestinal (Abdomen): Inspection/Auscultation: + abdominal surgical incision (c/d/i with faith) and + abdominal surgical drain present (JP1 (55cc), JP2 (35cc); nelson output) + brown stool in ostomy Results & Data Vital Signs (Past 12 Hours) Vital Signs Temp Pulse Pulse Resp BP Pulse Ox 11/27/19 07:28 37.1 C 87 16 160/77 H 95 11/27/19 04:00 36.9 C 86 18 148/80 H 96 11/27/19 00:00 79 11/26/19 23:00 36.7 C 84 20 154/80 H 94 PG Care Time/CCT Total # of Minutes Spent Total Time Spent with Patient: Total time spent is greater than 50% in coordination of care (as documented) at patient's floor/unit and/or counseling patient: Coding Level of Care Code None Diagnoses Perforated abdominal viscus R19.8
[2019-11-27] MEDS: CIPROFLOXACIN / D5W 400 MG/200 ML BAG IV SCH ×2 (11:07→22:02)
[2019-11-27] MEDS: MONTELUKAST SODIUM 10 MG TABLET PO SCH (11:07)
--- NOTE | 2019-11-27 19:39 | Hospitalist Progress Note ---
Date of Service November 27, 2019 Assessment & Plan (1) SIRS (systemic inflammatory response syndrome): Mrs. Carreon is a 64 yo woman now status post exploratory laparotomy with partial sigmoid colon resection and colostomy formation for perforated abdominal viscus on 11/19. The perforation was thought to be secondary to a very hard fecal impaction in the sigmoid colon. Hospitalist Team was consulted for co- management of sepsis. SEPSIS, present on admission, due to perforated viscous-now resolved-much improved overall - SIRS criteria met with tachycardia (HR 113 bmp) and elevated WBC (13.7) WBC had previously trended down to 10 k from 15k, but now back up to 12 K despite doing much better-nonspecific No fever, HR normal, BP stable to mildly elevated CXR normal, no evidence of UTI, source is perforated viscous on admission Blood cultures-remain no growth to date -peritoneal fluid with Bacteroides and Clostridium (anaerobes), continue on Cipro and Flagyl IV for now and then convert to p.o. to finish a 14-day course as per ID recommendation-could convert to p.o. antibiotics likely tomorrow if continues to tolerate regular diet -Continue to follow blood cultures (2) Tachycardia: resolved, secondary to sepsis -Treated infection with antibiotics and given IV fluids for hydration (3) Perforated abdominal viscus: s/p sigmoid resection, colostomy as above, secondary to fecal impaction in the sigmoid colon Needs wound care for ostomy teaching -Continue pain control with Tylenol as needed-she is not taking any IV Dilaudid or Percocet NGT has been pulled, [place] catheter pulled JOSEPH drains x2 remain in place and faith will need to be removed in approximately 4 weeks Postop surgical management as per surgery team (4) Chronic sinusitis: With a long history of allergies and chronic sinusitis Was having an exacerbation of symptoms here especially with having NG tube in place Now improved with adding loratadine and nasal saline -Added on nasal saline -Discouraged use of Sudafed frequently as it is a vasoconstrictor while trying to heal from her surgery -Continue Singulair -Continue on loratadine 10 mg daily -Patient reports Flonase in the past caused her significant headaches-we will avoid use -Uses albuterol as needed for previous diagnosis of asthma although recent consultation with pulmonology as an outpatient to reveal she likely does not have asthma (5) GERD (gastroesophageal reflux disease): Continue Protonix (6) Hyperlipidemia: -Continue rosuvastatin (7) Anxiety: No acute issues -Continue citalopram (8) Obstructive sleep apnea: Mild on sleep study in 2013-could not tolerate CPAP at that time (9) Hyponatremia: Sodium decreased to 131 and stable at 131 also today-likely secondary to receiving hypotonic fluids and some volume overload Weight is up significantly She is now ambulating and eating regular diet today which should increase her solute intake She should auto diuresis as well No longer on IV fluids -Consider Lasix if becomes hypoxic or weight continues to trend upward if sodium remains low but will hold off for now -Follow BMP in the morning (10) DVT prophylaxis: Lovenox 30 mg SQ once daily Disposition-[facility], however patient does not feel she will need rehab at this point. She would be okay with going home with home health -Could downgrade from telemetry to medical/surgical status The hospitalist service will continue to follow Admission and Anticipated Discharge Date Admission Date: November 20, 2019 Subjective Patient feeling much better today. She has not taken any opioids for pain in over 24 hours. She is not lethargic. She has very minimal abdominal pain. She has no belching today and no further nausea or vomiting. She just ate a low fiber diet for lunch and tolerated that well. She has good output from her ostomy. She was able to ambulate in the hallways with physical therapy today and was out of bed to chair. She is in better spirits today as well. She is making urine. Telemetry with normal sinus rhythm with rates in the 80s to 90s Review of Systems Review of Systems: All systems reviewed & are unremarkable except as noted in HPI & below Physical Exam Constitutional: average body habitus; no acute distress Eyes: + anicteric sclerae Neck: trachea midline, no thyromegaly Respiratory: normal respiratory effort, lungs clear to auscultation Cardiovascular: RRR, no murmur, no edema Chest (Breasts): Chest: normal inspection of chest Gastrointestinal (Abdomen): Inspection/Auscultation: normal bowel sounds; + abdomen abnormal to inspection (Colostomy bag in place with large amount of brown liquid and gas) and abdomen not distended Percussion/Palpation: + abdomen tender (Over incision with dressing in place) and abdomen soft; no guarding Musculoskeletal: Extremities: extremities normal to inspection; no cyanosis and no clubbing Skin: no rashes, warm and dry Neurologic: moves all extremities and awake; no focal motor deficits Psychiatric: Orientation: alert, oriented to person, oriented to place, oriented to time and cooperative Eye Contact: good eye contact Speech: normal rate/rhythm/volume of speech Lymphatic: no lymphedema Results & Data Results & Data ([facility]) Vital Signs (Past 12 Hours) Vital Signs Temp Pulse Pulse Resp BP Pulse Ox 11/27/19 15:32 37.4 C 91 H 18 146/75 H 93 11/27/19 11:40 36.4 C L 86 16 151/82 H 95 Laboratory Results 11/27/19 11/27/19 Range/Units 06:12 06:12 WBC 12.12 H (4.8-10.8) K/uL RBC 3.98 L (4.2-5.4) M/uL Hgb 11.3 L (12.0-16.0) g/dL Hct 33.7 L (37-47) % MCV 84.7 (80-100) fL MCH 28.4 (25-34) pg MCHC 33.5 (32-36) g/dL RDW Std Deviation 43.9 (36.4-46.3) fL RDW Coeff of Sobia 14.2 (11.5-14.5) % Plt Count 285 (130-400) K/uL MPV 9.1 (7.4-10.4) fL Immature Gran % (Auto) 3.7 % Neut % (Auto) 63.8 % Lymph % (Auto) 17.0 % [place] % (Auto) 13.6 % Eos % (Auto) 1.7 % Baso % (Auto) 0.2 % Immature Gran # (Auto) 0.45 H (0.00-0.02) K/uL Neut # (Auto) 7.72 H (1.4-6.5) K/uL Lymph # (Auto) 2.06 (1.2-3.4) K/uL [place] # (Auto) 1.65 H (0.11-0.59) K/uL Eos # (Auto) 0.21 (0-0.5) K/uL Baso # (Auto) 0.03 (0-0.2) K/uL Absolute Nucleated RBC 0.08 H (0-0) K/uL Nucleated RBC % (auto) 0.6 % Toxic Granulation 2+ Sodium 131 L (136-145) mmol/L Potassium 3.5 (3.5-5.1) mmol/L Chloride 101 (98-107) mmol/L Carbon Dioxide 25 (21-32) mmol/L Anion Gap 5.0 (3-11) BUN 8 (7-18) mg/dl Creatinine 0.42 L (0.6-1.2) mg/dl Est Cr Clr Drug Dosing 154.4 ml/min Est GFR ( Amer) 126.4 Est GFR (Non-Af Amer) 109.1 BUN/Creatinine Ratio 18.0 (10-20) Glucose 125 H (70-99) mg/dl Calcium 8.5 (8.5-10.1) mg/dl PG Care Time/CCT Total # of Minutes Spent Total Time Spent with Patient: Total time spent is greater than 50% in coordination of care (as documented) at patient's floor/unit and/or counseling patient: Coding Level of Care Code 92870 Subseq Hosp Care Lvl 2 Diagnoses SIRS (systemic inflammatory response syndrome) R65.10 Tachycardia R00.0 Perforated abdominal viscus R19.8 Chronic sinusitis J32.9 GERD (gastroesophageal reflux disease) K21.9 Hyperlipidemia E78.5 Anxiety F41.9 Obstructive sleep apnea G47.33 Hyponatremia E87.1 DVT prophylaxis Z29.9
[2019-11-27] MEDS: ALUMINUM/MAGNESIUM SUSP 30 ML UDC PO PRN (22:01)
[2019-11-28] MEDS: metroNIDAZOLE 500 MG/100 ML BAG IV SCH ×3 (02:25→18:42)
[2019-11-28 06:07] LABS: Basophils # (auto) 0.03 K/uL (0-0.2); Basophils % (auto) 0.2 %; Eosinophils # (auto) 0.32 K/uL (0-0.5); Eosinophils % (auto) 2.4 %; Hematocrit (blood only) 32.6 % (37-47); Immature Granulocytes # (auto) 0.55 K/uL (0.00-0.02); Immature Granulocytes % (auto) 4.1 %; Lymphocytes # (auto) 2.56 K/uL (1.2-3.4); Lymphocytes % (auto) 19.1 %; Mean Corpuscular Hemoglobin 28.8 pg (25-34); Mean Corpuscular Hgb Conc 33.7 g/dL (32-36); Mean Corpuscular Volume 85.3 fL (80-100); Monocytes # (auto) 1.73 K/uL (0.11-0.59); Monocytes % (auto) 12.9 %; Neutrophils % (auto) 61.3 %; Platelet Count 321 K/uL (130-400); RDW Coefficient of Variation 14.4 % (11.5-14.5); RDW Standard Deviation 44.9 fL (36.4-46.3); Red Blood Count 3.82 M/uL (4.2-5.4); White Blood Count 13.39 K/uL (4.8-10.8)
[2019-11-28 06:43] LABS: BUN Creatinine Ratio 14.1 (10-20); Creatinine Clr Calc Pharmacy 132.1 ml/min; Est GFR (Non-African American) 104.4; Potassium 3.4 mmol/L (3.5-5.1)
[2019-11-28] MEDS: CITALOPRAM 20 MG TAB PO SCH (08:51)
[2019-11-28] MEDS: PANTOprazole 40 MG TAB PO SCH (08:52)
[2019-11-28] MEDS: ENOXAPARIN INJ 30 MG/0.3 ML SYR SQ SCH (08:52)
[2019-11-28] MEDS: LORATADINE 10 MG TAB PO SCH (08:52)
[2019-11-28] MEDS: ROSUVASTATIN CALCIUM 20 MG TAB PO SCH (08:52)
[2019-11-28] MEDS: SODIUM CHLORIDE 0.65% NA SOLN 45 ML (OCEAN) NAE SCH ×3 (08:53→20:52)
--- NOTE | 2019-11-28 09:26 | Surgery Progress Note ---
Date of Service November 28, 2019 Assessment & Plan (1) Perforated abdominal viscus: clinically doing well wbc slightly creeping up will check cxr and UA today. if negative and wbc up tomorrow would consider CT of abd/pelvis tomorrow prior to d/c. cont antibiotics d/c planning. Subjective feeling well. maldonado diet. denies pain. Physical Exam Physical Exam: alert. nad abd: soft. incision looks good. stoma looks good. +formed stool ouptut Results & Data Vital Signs (Past 12 Hours) Vital Signs Temp Pulse Pulse Pulse Resp BP Pulse Ox 11/28/19 08:01 36.7 C 95 H 18 151/90 H 93 11/28/19 07:34 101 H 11/28/19 03:25 36.4 C L 75 18 144/79 H 93 11/27/19 23:13 36.8 C 88 18 137/81 94 11/27/19 22:00 84 PG Care Time/CCT Total # of Minutes Spent Total Time Spent with Patient: Total time spent is greater than 50% in coordination of care (as documented) at patient's floor/unit and/or counseling patient: Coding Level of Care Code None Diagnoses Perforated abdominal viscus R19.8
--- NOTE | 2019-11-28 10:26 | XRay Report ---
XR chest 1V portable CLINICAL HISTORY: leukocytosis dyspnea COMPARISON STUDY: 11/22/2019 FINDINGS: Chronic elevation right hemidiaphragm. Left lung is clear. Subsegmental atelectasis right base. Lungs otherwise are clear. IMPRESSION: Atelectasis right base. Otherwise negative study. ACT 112: Negative or not required by law. The above report was generated using voice recognition software. It may contain grammatical, syntax or spelling errors. Electronically signed by: Graham Latham M.D. 11/28/2019 10:25 AM
[2019-11-28] MEDS: POTASSIUM CHLORIDE / WTR 10 MEQ/100 ML PLCT IV SCH ×2 (11:27→12:34)
[2019-11-28] MEDS: CIPROFLOXACIN / D5W 400 MG/200 ML BAG IV SCH ×2 (11:27→23:01)
[2019-11-28 11:30] LABS: Appearance Urine Turbid (Clear); Bacteria Urine Automated Negative (Negative); Bilirubin Urine Negative (Negative); Blood Urine Negative (Negative); Color Urine Yellow; Epithelial Cell Urine Auto >30 /lpf (0-5); Glucose Urine UA Negative (Negative); Ketones Urine 1+ (Negative); Leukocyte Esterase Urine Trace (Negative); Nitrite Urine Negative (Negative); Protein Urine Negative (Negative); Specific Gravity Urine 1.016 (1.000-1.030); Urobilinogen Urine Negative (Negative); pH Urine 7.5 (4.5-7.5)
[2019-11-28 11:42] LABS: Amorphous Sediment Urine Present (None Prsent)
[2019-11-28] MEDS: MONTELUKAST SODIUM 10 MG TABLET PO SCH (12:34)
--- NOTE | 2019-11-28 20:46 | Hospitalist Progress Note ---
Date of Service November 28, 2019 Assessment & Plan (1) SIRS (systemic inflammatory response syndrome): Mrs. Carreon is a 64 yo woman now status post exploratory laparotomy with partial sigmoid colectomy and colostomy formation for perforated abdominal viscus on 11/19. The perforation was thought to be secondary to a very hard fecal impaction in the sigmoid colon. Hospitalist Team was consulted for co- management of sepsis. SEPSIS, present on admission, due to perforated viscous-now resolved-much improved overall, however with leukocytosis worsening the last 2 days up to 13 K Remains afebrile, no symptoms of pneumonia or infection Urinalysis contaminated with epithelial cells today and no symptoms of UTI Peritoneal fluid with Bacteroides and Clostridium species not perfringens Abdominal pain is almost completely resolved and she remains on Cipro and Flagyl for her peritonitis to complete a 14-day course JOSEPH drains remain in place -Continue to follow blood cultures-no growth to date -Follow CBC but likely just reactive leukocytosis -If leukocytosis worsening, surgery plans on repeating CT abdomen/pelvis (2) Tachycardia: resolved, secondary to sepsis -Treated infection with antibiotics and given IV fluids for hydration (3) Perforated abdominal viscus: s/p sigmoid resection, colostomy as above, secondary to fecal impaction in the sigmoid colon Needs wound care for ostomy teaching -Continue pain control with Tylenol as needed-she is not taking any IV Dilaudid or Percocet NGT has been pulled, [place] catheter pulled JOSEPH drains x2 remain in place x1 more week and faith will need to be removed in approximately 4 weeks Postop surgical management as per surgery team -Encourage ambulation Tolerating a low fiber diet (4) Chronic sinusitis: With a long history of allergies and chronic sinusitis Was having an exacerbation of symptoms here especially with having NG tube in place Now improved with adding loratadine and nasal saline -Added on nasal saline -Discouraged use of Sudafed frequently as it is a vasoconstrictor while trying to heal from her surgery -Continue Singulair -Continue on loratadine 10 mg daily -Patient reports Flonase in the past caused her significant headaches-we will avoid use -Uses albuterol as needed for previous diagnosis of asthma although recent consultation with pulmonology as an outpatient to reveal she likely does not have asthma (5) GERD (gastroesophageal reflux disease): Continue Protonix (6) Hyperlipidemia: -Continue rosuvastatin (7) Anxiety: No acute issues -Continue citalopram (8) Obstructive sleep apnea: Mild on sleep study in 2013-could not tolerate CPAP at that time (9) Hyponatremia: Sodium decreased to 131 and now improved to 132-likely secondary to receiving hypotonic fluids and some volume overload Weight is up significantly but now she is urinating quite a bit and has lost 4 kg since yesterday She is now ambulating and eating regular diet today which should increase her solute intake She should auto diuresis as well No longer on IV fluids -Consider Lasix if becomes hypoxic or weight continues to trend upward if sodium remains low but will hold off for now -Follow BMP in the morning (10) DVT prophylaxis: Lovenox 30 mg SQ once daily Disposition-[facility], however patient does not feel she will need rehab at this point. She would be okay with going home with home health -Could downgrade from telemetry to medical/surgical status-defer to surgical service The hospitalist service will continue to follow Admission and Anticipated Discharge Date Admission Date: November 20, 2019 Anticipated date of discharge: 11/29/19 Subjective Patient reports feeling the best she has yet since hospitalization. She is ambulating around the halls and making urine. She is tolerating a low fiber diet. She has very minimal abdominal pain. Denies shortness of breath or chest pain. She is not coughing at all. She feels like she is making a lot more urine in the last 24 hours than previous and feels less swollen. Review of Systems Review of Systems: All systems reviewed & are unremarkable except as noted in HPI & below Physical Exam Constitutional: average body habitus; no acute distress Eyes: + anicteric sclerae Neck: trachea midline, no thyromegaly Respiratory: normal respiratory effort, lungs clear to auscultation Cardiovascular: RRR, no murmur, no edema Chest (Breasts): Chest: normal inspection of chest Gastrointestinal (Abdomen): Inspection/Auscultation: normal bowel sounds; + abdomen abnormal to inspection (Colostomy bag in place with large amount of brown liquid and gas) and abdomen not distended Percussion/Palpation: + abdomen tender (Over incision with dressing in place) and abdomen soft; no guarding Musculoskeletal: Extremities: extremities normal to inspection; no cyanosis and no clubbing Skin: no rashes, warm and dry Neurologic: moves all extremities and awake; no focal motor deficits Psychiatric: Orientation: alert, oriented to person, oriented to place, oriented to time and cooperative Eye Contact: good eye contact Speech: normal rate/rhythm/volume of speech Lymphatic: no lymphedema Results & Data Results & Data ([facility]) Vital Signs (Past 12 Hours) Vital Signs Temp Pulse Pulse Pulse Resp BP BP 11/28/19 19:28 36.6 C 90 18 165/80 H 11/28/19 15:22 36.8 C 88 18 138/82 11/28/19 15:00 89 11/28/19 11:12 37.1 C 83 18 144/80 H Pulse Ox 11/28/19 19:28 94 11/28/19 15:22 95 11/28/19 15:00 11/28/19 11:12 96 Laboratory Results 11/28/19 11/28/19 11/28/19 Range/Units 10:30 05:46 05:46 WBC 13.39 H (4.8-10.8) K/uL RBC 3.82 L (4.2-5.4) M/uL Hgb 11.0 L (12.0-16.0) g/dL Hct 32.6 L (37-47) % MCV 85.3 (80-100) fL MCH 28.8 (25-34) pg MCHC 33.7 (32-36) g/dL RDW Std Deviation 44.9 (36.4-46.3) fL RDW Coeff of [place] 14.4 (11.5-14.5) % Plt Count 321 (130-400) K/uL MPV 9.0 (7.4-10.4) fL Immature Gran % (Auto) 4.1 % Neut % (Auto) 61.3 % Lymph % (Auto) 19.1 % [place] % (Auto) 12.9 % Eos % (Auto) 2.4 % Baso % (Auto) 0.2 % Immature Gran # (Auto) 0.55 H (0.00-0.02) K/uL Neut # (Auto) 8.20 H (1.4-6.5) K/uL Lymph # (Auto) 2.56 (1.2-3.4) K/uL [place] # (Auto) 1.73 H (0.11-0.59) K/uL Eos # (Auto) 0.32 (0-0.5) K/uL Baso # (Auto) 0.03 (0-0.2) K/uL Sodium 132 L (136-145) mmol/L Potassium 3.4 L (3.5-5.1) mmol/L Chloride 104 (98-107) mmol/L Carbon Dioxide 25 (21-32) mmol/L Anion Gap 3.0 (3-11) BUN 7 (7-18) mg/dl Creatinine 0.48 L (0.6-1.2) mg/dl Est Cr Clr Drug Dosing 132.1 ml/min Est GFR ( Amer) 121.0 Est GFR (Non-Af Amer) 104.4 BUN/Creatinine Ratio 14.1 (10-20) Glucose 136 H (70-99) mg/dl Calcium 8.0 L (8.5-10.1) mg/dl Urine Color Yellow Urine Appearance Turbid A (Clear) Urine pH 7.5 (4.5-7.5) Ur Specific [place] 1.016 (1.000-1.030) Urine Protein Negative (Negative) Urine Glucose (UA) Negative (Negative) Urine Ketones 1+ H (Negative) Urine Blood Negative (Negative) Urine Nitrite Negative (Negative) Urine Bilirubin Negative (Negative) Urine Urobilinogen Negative (Negative) Ur Leukocyte Esterase Trace H (Negative) Urine WBC (Auto) 10-30 H (0-5) /hpf Urine RBC (Auto) 10-30 H (0-4) /hpf U Hyaline Cast (Auto) 5-10 H (0-5) /lpf U Epithel Cells (Auto) >30 H (0-5) /lpf Urine Bacteria (Auto) Negative (Negative) Ur Renal Epithelial Cell Not Reportable Amorphous Sediment Present A (None Prsent) PG Care Time/CCT Total # of Minutes Spent Total Time Spent with Patient: Total time spent is greater than 50% in coordination of care (as documented) at patient's floor/unit and/or counseling patient: Coding Level of Care Code 27252 Subseq Hosp Care Lvl 2 Diagnoses SIRS (systemic inflammatory response syndrome) R65.10 Tachycardia R00.0 Perforated abdominal viscus R19.8 Chronic sinusitis J32.9 GERD (gastroesophageal reflux disease) K21.9 Hyperlipidemia E78.5 Anxiety F41.9 Obstructive sleep apnea G47.33 Hyponatremia E87.1 DVT prophylaxis Z29.9
[2019-11-29] MEDS: ACETAMINOPHEN 325 MG TAB PO PRN (02:16)
[2019-11-29] MEDS: metroNIDAZOLE 500 MG/100 ML BAG IV SCH ×2 (02:17→12:27)
[2019-11-29 07:25] LABS: Basophils # (auto) 0.04 K/uL (0-0.2); Basophils % (auto) 0.3 %; Eosinophils # (auto) 0.32 K/uL (0-0.5); Eosinophils % (auto) 2.2 %; Hematocrit (blood only) 33.5 % (37-47); Hemoglobin 11.2 g/dL (12.0-16.0); Immature Granulocytes # (auto) 0.48 K/uL (0.00-0.02); Immature Granulocytes % (auto) 3.3 %; Lymphocytes # (auto) 2.48 K/uL (1.2-3.4); Lymphocytes % (auto) 17.3 %; Mean Corpuscular Hemoglobin 28.6 pg (25-34); Mean Corpuscular Hgb Conc 33.4 g/dL (32-36); Mean Corpuscular Volume 85.5 fL (80-100); Mean Platelet Volume 9.3 fL (7.4-10.4); Monocytes # (auto) 1.54 K/uL (0.11-0.59); Monocytes % (auto) 10.7 %; Neutrophils # (auto) 9.51 K/uL (1.4-6.5); Neutrophils % (auto) 66.2 %; Platelet Count 366 K/uL (130-400); RDW Coefficient of Variation 14.6 % (11.5-14.5); RDW Standard Deviation 45.5 fL (36.4-46.3); Red Blood Count 3.92 M/uL (4.2-5.4); White Blood Count 14.37 K/uL (4.8-10.8)
[2019-11-29 07:40] LABS: BUN Creatinine Ratio 12.5 (10-20); Calcium 8.1 mg/dl (8.5-10.1); Est GFR (Non-African American) 104.4; Potassium 3.4 mmol/L (3.5-5.1)
[2019-11-29] MEDS: POTASSIUM CHLORIDE / WTR 10 MEQ/100 ML PLCT IV SCH ×2 (09:07→10:28)
[2019-11-29] MEDS: PANTOprazole 40 MG TAB PO SCH (09:09)
[2019-11-29] MEDS: LORATADINE 10 MG TAB PO SCH (09:09)
[2019-11-29] MEDS: CITALOPRAM 20 MG TAB PO SCH (09:09)
[2019-11-29] MEDS: ENOXAPARIN INJ 30 MG/0.3 ML SYR SQ SCH (09:10)
[2019-11-29] MEDS: SODIUM CHLORIDE 0.65% NA SOLN 45 ML (OCEAN) NAE SCH ×3 (09:10→22:01)
[2019-11-29] MEDS: ROSUVASTATIN CALCIUM 20 MG TAB PO SCH (09:10)
--- NOTE | 2019-11-29 11:26 | Surgery Progress Note ---
Date of Service pt is doing fine on clinically, no significant abdominal pain, no fever, but WBC 14, 000, she tolerated diet, no nausea, no vomiting, GEORGE - 50 ml, pus, November 29, 2019 Assessment & Plan (1) Perforated abdominal viscus: 64 year-old female presented to ED with sudden onset of abdominal pain that began last evening that increase in nature throughout the night. Associated sweats and lightheadedness. Leukocytosis of 14k. CT scan of abdomen and pelvis without contrast showing scattered pneumoperitoneum with ascites in pelvis and right colic gutter concerning for perforation, site of perforation unclear on CT scan. Abdomen is soft but involuntary and voluntary guarding with rigidity and rebound tenderness on examination. Plan: Discussed with patient findings on CT scan concerning for possible bowel perforation. Discussed need for exploration and possible bowel resection and ostomy to control infection and prevent further infection, sepsis, or even . Dr. Gomes discussed procedure and risks as well with patient. Informed consent obtained by patient. Continue IV Cipro/Flagyl Continue pain management To OR emergently for ex lap, possible bowel resection, possible ostomy Med/surg postop Keep NPO I ( Yunior Gomes MD ) did talk to pt about benefits, risks and alternatives of the exploratory laparotomy, possible bowel resection, stoma, the risks - infection, bleeding, abscess, sepsis, multiple organs failure, CO, DVT, , pt understood, she agrees with the surgery, I answered all questions, 11/22/2019 5:46PM, consult ID for sepsis, 11/29/2019 11:23am doing fine clinically, but wbc 14,000, I agree with CT scan to R/O abscess, D/W benefits, risks and alternatives of the CT scan exam, pt understood, she agrees c with the CT scan, culture GEORGE drainage fluid, will F/U (2) Pneumoperitoneum: Plan as above Dr. Gomes has seen and examined patient, agrees with above. Supervising Physician Co-Signing Physician Notes pnt seen and examined, agree with above. s/p north's, doing well, +stool from ostomy, feels hungry. abd soft, nt, nd, ostomy pink and patent w/ stool and gas. GEORGE's with cloudy output. wbc 12 from 10. low fiber diet as tolerated, continue george's and iv abx. possible d/c tomorrow or Monday. f/u with Dr. Gomes. Subjective feeling well. maldonado diet. denies pain. Physical Exam Constitutional: WD/WN, vitals as above well developed and well nourished Neck: trachea midline, no thyromegaly Respiratory: normal respiratory effort, lungs clear to auscultation normal respiratory effort Cardiovascular: RRR, no murmur, no edema Rate/Rhythm: regular rate and regular rhythm Gastrointestinal (Abdomen): Percussion/Palpation: abdomen soft no tenderness, colostomy is working, some stool in the bag, no redness on colostomy site, GEORGE drainage some pus, Musculoskeletal: no cyanosis or clubbing, extremities motor strength 5/5 Neurologic: awake Psychiatric: Orientation: alert and oriented x 3 Results & Data Vital Signs (Past 12 Hours) Vital Signs Temp Pulse Resp BP BP Pulse Ox 11/29/19 07:31 36.7 C 82 18 152/71 H 94 11/28/19 23:48 36.5 C 86 18 150/79 H 95 Laboratory Results Abnormal lab results 11/28/19 11/29/19 11/29/19 Range/Units 10:30 06:47 06:47 WBC 14.37 H (4.8-10.8) K/uL RBC 3.92 L (4.2-5.4) M/uL Hgb 11.2 L (12.0-16.0) g/dL Hct 33.5 L (37-47) % RDW Coeff of Sobia 14.6 H (11.5-14.5) % Immature Gran # (Auto) 0.48 H (0.00-0.02) K/uL Neut # (Auto) 9.51 H (1.4-6.5) K/uL [place] # (Auto) 1.54 H (0.11-0.59) K/uL Sodium 134 L (136-145) mmol/L Potassium 3.4 L (3.5-5.1) mmol/L BUN 6 L (7-18) mg/dl Creatinine 0.48 L (0.6-1.2) mg/dl Glucose 143 H (70-99) mg/dl Calcium 8.1 L (8.5-10.1) mg/dl Urine Appearance Turbid A (Clear) Urine Ketones 1+ H (Negative) Ur Leukocyte Esterase Trace H (Negative) Urine WBC (Auto) 10-30 H (0-5) /hpf Urine RBC (Auto) 10-30 H (0-4) /hpf U Hyaline Cast (Auto) 5-10 H (0-5) /lpf U Epithel Cells (Auto) >30 H (0-5) /lpf Amorphous Sediment Present A (None Prsent)
[2019-11-29] MEDS ORDERED: IOVERSOL 100ml IV PRN (11:29)
--- NOTE | 2019-11-29 11:50 | CT Scan Report ---
CT abd pelvis oral and IV con CLINICAL HISTORY: 64 years-old Female presenting with rising WBC,recent sigmoid colectomy,r/o abscess . TECHNIQUE: Multidetector CT of the abdomen and pelvis was performed after the administration of oral and intravenous contrast. IV contrast: 93 mL of Optiray 320. One or more dose lowering techniques wer e used consistent with the principles of ALARA (as low as reasonably achievable), including automatic exposure control, mA or kV adjustment to individual patient size, and/or use of iterative reconstruc tion. COMPARISON: 11/20/2019. CT DOSE (mGy.cm): The estimated cumulative dose is 897.19 mGycm. FINDINGS: [employer] Helper topogram: Cholecystectomy clips. Gaseous distended bowel. Midline skin faith. Lung bases: Normal heart size. No pericardial or pleural effusion. Bandlike consolidation in the righ t lower lobe, likely extensive atelectasis, new from prior Liver: Mildly macronodular contour of the liver. No focal lesion allowing for the single phase of con trast. Patent hepatic vasculature. Biliary: No intrahepatic or extrahepatic biliary ductal dilatation. Gallbladder surgically absent. Pancreas: Normal. Spleen: Normal. Adrenal glands: Normal. Kidneys and ureters: Fat-containing lesion at the upper pole of the right kidney suspected with poorl y delineated contours lobe measuring less than 2 cm, likely angiomyolipoma. Renal parenchyma otherwis e normal from few tiny cysts. No nephrolithiasis or hydronephrosis. Ureters nondistended. Bladder: Incompletely evaluated secondary to underdistention. Gas within the urinary bladder likely r elates to recent catheterization. Pelvic organs: Uterus and ovaries normal apart from the possible presence of a uterine fibroid along the right lateral uterine wall. Bowel: Mild wall thickening of the upper rectum with a Guido's pouch noted at the level of the rect osigmoid junction. Descending colostomy in the left lower quadrant. Mild wall thickening of the exiti ng: (Series 3 image 355). Postsurgical changes of sigmoidectomy. Moderate stool burden predominantly in the left colon. Fluid noted in the right colon. The appendix is grossly normal. Small bowel is dil ated in the proximal to mid ileum with decompressed distal ileum. Mild wall thickening of the distal ileum, which is also fluid-filled. There is a relatively smooth transition from the dilated mid ileum to the distal ileum without convincing evidence of a transition point. Wall thickening of distal ile um as best demonstrated in the superior pelvis (series 3 image 4 4). In the region of the sigmoidecto my bed. Peritoneal cavity: Small volume fluid in the pelvis and left lower quadrant. The fluid in the rectout erine recess may be loculated with peritoneal enhancement and trace gas (series 3 image 392). This do es not appear to definitively represent bowel. Assuming this represents a collection this measures 4. 5 cm in diameter. Evaluation is limited by the absence of oral contrast in the distal ileum. 2 Jackso n-Rocha drains are located in the pelvis. No significant fluid along the draining termini. No free in traperitoneal gas. Lymph nodes: No enlarged lymph nodes in the abdomen or pelvis. Vasculature: Atherosclerosis of the normal caliber abdominal aorta. IVC patent. Abdominal wall: Small fat-containing left inguinal hernia. Mild body wall edema. Left lower quadrant colostomy. Adjacent fluid in the abdominal wall without rim enhancement, nonspecific (series 3 image 349). Clyde-Rocha drains entering the anterior abdomen on the right. Skin faith noted in the vent ral midline abdominal wall. Musculoskeletal: Normal. IMPRESSION: 1. Interval sigmoidectomy with descending colostomy and Guido's pouch. 2. Wall thickening of the exiting colon at the colostomy may represent postoperative edema or less l ikely ischemia or colitis. Correlate with physical exam assessment of the colostomy site. 3. Small fluid in the pelvis with 2 Clyde-R[address] dra[address] in place[address] Potential gas and fluid containin g collection in the rectouterine recess with peritoneal enhancement. This is suspicious for loculated fluid with concern for developing abscess. Less likely this may represent bowel with evaluation limi shelby by lack of oral contrast in the distal ileum. Delayed CT scan allowing passage of oral contrast i nto the distal ileum may confirm this as a intraperitoneal collection. 4. Wall thickening of small bowel loops in the pelvis at the level of the distal ileum may be reacti ve in the postoperative setting or inflammatory in etiology. 5. Dilated small bowel without convincing evidence of a transition point, likely ileus. ACT 112: Negative or not required by law. Electronically signed by: Tino Farnsworth M.D. 11/29/2019 11:48 AM
[2019-11-29] MEDS: MONTELUKAST SODIUM 10 MG TABLET PO SCH (12:36)
[2019-11-29] MEDS: CIPROFLOXACIN / D5W 400 MG/200 ML BAG IV SCH (13:25)
[2019-11-29] MEDS ORDERED: VANCOMYCIN CONSULT ACTIVE PRN (13:31)
[2019-11-29] MEDS ORDERED: VANCOMYCIN HCL 1,250 MG in SODIUM CHLORIDE 0.9% 500 ML IV SCH (13:45)
[2019-11-29] MEDS ORDERED: VANCOMYCIN HCL 2,000 MG in SODIUM CHLORIDE 0.9% 500 ML IV ONE (14:00)
[2019-11-29] MEDS ORDERED: PIPERACILL/TAZOBAC CONSULT ACTIVE PRN (14:50)
--- NOTE | 2019-11-29 15:07 | Pharmacy Report ---
Pharmacy Abx Dose Short Note - Date of Service November 29, 2019 - Assessment & Plan Assessment 64 yo female on cipro and flagyl IV (since 11/19) for perforated abdominal viscus * 11/28 Abdominal/pelvic CT revealed possible 4.5 cm fluid collection at pelvic area therefore vancomycin was started * pt previously on vancomycin IV 11/19-11/22 - will resume previous dosing * deep wound culture and urine culture pending Plan Vancomycin * Loading dose: 2000 mg IV x 1 * Maintenance dose: 1000 mg IV q8h * Goal trough level ~ 15 mcg/mL * Trough level ordered for: 11/29 @ 1330 D/c cipro and flagyl -> start zosyn 3.375g IV q8h via ext. infusion Pharmacy will continue to follow and will adjust dose/frequency as necessary. Thank you.
[2019-11-29] MEDS ORDERED: PIPERACILLIN/TAZOBACTAM 3.375 GM in DEXTROSE 5% 100 ML IV ONE (18:00)
--- NOTE | 2019-11-29 18:11 | Hospitalist Progress Note ---
Date of Service November 29, 2019 Assessment & Plan (1) SIRS (systemic inflammatory response syndrome): Mrs. Carreon is a 64 yo woman now status post exploratory laparotomy with partial sigmoid colectomy and colostomy formation for perforated abdominal viscus on 11/19. The perforation was thought to be secondary to a very hard fecal impaction in the sigmoid colon. Hospitalist Team was consulted for co- management of sepsis. SEPSIS, present on admission, due to perforated viscous-was resolved- improved overall, however with leukocytosis again worsening the last 3 days up to 14 K Remains afebrile, no symptoms of pneumonia, UTI Urinalysis contaminated with epithelial cells and no symptoms of UTI Peritoneal fluid with Bacteroides and Clostridium species not perfringens - she remains on Cipro and Flagyl for her peritonitis to complete a 14-day course -JOSEPH drains remain in place with purulent fluid draining--> recultured today- follow deep wound culture CT abd/pel repeated 11/28 shows possible rectouterine pelvic fluid collection 4.5cm--> added on IV Vanco -if leukocytosis not improving, consider percutaneous drainage as per Surgery recommendation -Continue to follow blood cultures-no growth to date -Follow CBC (2) Pelvic abscess: as above (3) Tachycardia: resolved, secondary to sepsis -Treated infection with antibiotics and given IV fluids for hydration (4) Perforated abdominal viscus: s/p sigmoid resection, colostomy as above, secondary to fecal impaction in the sigmoid colon - wound care for ostomy teaching -Continue pain control with Tylenol as needed-she is not taking any IV Dilaudid or Percocet NGT has been pulled, [place] catheter pulled JOSEPH drains x2 remain in place x1 more week and faith will need to be removed in approximately 4 weeks Postop surgical management as per surgery team-with pelvic abscess as above -Encourage ambulation Tolerating a low fiber diet (5) Chronic sinusitis: With a long history of allergies and chronic sinusitis Was having an exacerbation of symptoms here especially with having NG tube in place Now improved with adding loratadine and nasal saline -Added on nasal saline -Discouraged use of Sudafed frequently as it is a vasoconstrictor while trying to heal from her surgery -Continue Singulair -Continue on loratadine 10 mg daily -Patient reports Flonase in the past caused her significant headaches-we will avoid use -Uses albuterol as needed for previous diagnosis of asthma although recent consultation with pulmonology as an outpatient to reveal she likely does not have asthma (6) GERD (gastroesophageal reflux disease): Continue Protonix (7) Hyperlipidemia: -Continue rosuvastatin (8) Anxiety: No acute issues -Continue citalopram (9) Obstructive sleep apnea: Mild on sleep study in 2013-could not tolerate CPAP at that time (10) Hyponatremia: Sodium decreased to 131 and now improved again to 134-likely secondary to receiving hypotonic fluids and some volume overload weight was way up and now coming back down She is now ambulating and eating regular diet today which should increase her solute intake She should auto diurese as well No longer on IV fluids -Consider Lasix if becomes hypoxic or weight continues to trend upward if sodium remains low but will hold off for now -Follow BMP in the morning (11) Renal mass, right: 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 She would be okay with going home with home health Continued stay now for pelvic abscess The hospitalist service will continue to follow Admission and Anticipated Discharge Date Admission Date: November 20, 2019 Subjective Pt feels very tired today, "wiped out" after minimal exertion. Having some increased abd pain and bloating today. Reports since drinking the contrast for the CT scan, she has felt full and has not eaten much at all today. No chest pain or SOB. Was not able to sleep well last night. Review of Systems Review of Systems: All systems reviewed & are unremarkable except as noted in HPI & below Physical Exam Constitutional: + ill appearing and average body habitus; no acute distress Eyes: + anicteric sclerae Neck: trachea midline, no thyromegaly Respiratory: normal respiratory effort, lungs clear to auscultation Cardiovascular: RRR, no murmur, no edema Chest (Breasts): Chest: normal inspection of chest Gastrointestinal (Abdomen): Inspection/Auscultation: + abdomen distended (mild) and normal bowel sounds; + abdomen abnormal to inspection (Colostomy bag in place with gas and small amount brown stool and liquid) Percussion/Palpation: + abdomen tender (Over incision with dressing in place) and abdomen soft; no guarding Musculoskeletal: Extremities: extremities normal to inspection; no cyanosis and no clubbing Skin: no rashes, warm and dry Neurologic: moves all extremities and awake; no focal motor deficits Psychiatric: Orientation: alert, oriented to person, oriented to place, oriented to time and cooperative Eye Contact: good eye contact Speech: normal rate/rhythm/volume of speech Affect: + flat affect Lymphatic: no lymphedema Results & Data Results & Data ([facility]) Vital Signs (Past 12 Hours) Vital Signs Temp Pulse Pulse Pulse Resp BP Pulse Ox 11/29/19 15:09 36.8 C 101 H 18 138/89 93 11/29/19 11:39 36.6 C 76 18 177/78 H 96 11/29/19 07:31 36.7 C 82 18 152/71 H 94 11/29/19 07:00 76 Laboratory Results 11/29/19 11/29/19 Range/Units 06:47 06:47 WBC 14.37 H (4.8-10.8) K/uL RBC 3.92 L (4.2-5.4) M/uL Hgb 11.2 L (12.0-16.0) g/dL Hct 33.5 L (37-47) % MCV 85.5 (80-100) fL MCH 28.6 (25-34) pg MCHC 33.4 (32-36) g/dL RDW Std Deviation 45.5 (36.4-46.3) fL RDW Coeff of Sobia 14.6 H (11.5-14.5) % Plt Count 366 (130-400) K/uL MPV 9.3 (7.4-10.4) fL Immature Gran % (Auto) 3.3 % Neut % (Auto) 66.2 % Lymph % (Auto) 17.3 % Rankin % (Auto) 10.7 % Eos % (Auto) 2.2 % Baso % (Auto) 0.3 % Immature Gran # (Auto) 0.48 H (0.00-0.02) K/uL Neut # (Auto) 9.51 H (1.4-6.5) K/uL Lymph # (Auto) 2.48 (1.2-3.4) K/uL Rankin # (Auto) 1.54 H (0.11-0.59) K/uL Eos # (Auto) 0.32 (0-0.5) K/uL Baso # (Auto) 0.04 (0-0.2) K/uL Sodium 134 L (136-145) mmol/L Potassium 3.4 L (3.5-5.1) mmol/L Chloride 104 (98-107) mmol/L Carbon Dioxide 24 (21-32) mmol/L Anion Gap 6.0 (3-11) BUN 6 L (7-18) mg/dl Creatinine 0.48 L (0.6-1.2) mg/dl Est Cr Clr Drug Dosing 126.0 ml/min Est GFR ( Amer) 121.0 Est GFR (Non-Af Amer) 104.4 BUN/Creatinine Ratio 12.5 (10-20) Glucose 143 H (70-99) mg/dl Calcium 8.1 L (8.5-10.1) mg/dl PG Care Time/CCT Total # of Minutes Spent Total Time Spent with Patient: Total time spent is greater than 50% in coordination of care (as documented) at patient's floor/unit and/or counseling patient: Coding Level of Care Code 26654 Subseq Hosp Care Lvl 2 Diagnoses SIRS (systemic inflammatory response syndrome) R65.10 Pelvic abscess Tachycardia R00.0 Perforated abdominal viscus R19.8 Chronic sinusitis J32.9 GERD (gastroesophageal reflux disease) K21.9 Hyperlipidemia E78.5 Anxiety F41.9 Obstructive sleep apnea G47.33 Hyponatremia E87.1 Renal mass, right N28.89 DVT prophylaxis Z29.9
[2019-11-29] MEDS: VANCOMYCIN HCL 1,000 MG in SODIUM CHLORIDE 0.9% 250 ML IV SCH (22:01)
[2019-11-30] MEDS: PIPERACILLIN/TAZOBACTAM 3.375 GM in DEXTROSE 5% 100 ML IV SCH ×3 (00:13→15:41)
[2019-11-30] MEDS: ACETAMINOPHEN 325 MG TAB PO PRN (00:13)
[2019-11-30 05:55] LABS: Basophils # (auto) 0.03 K/uL (0-0.2); Basophils % (auto) 0.2 %; Eosinophils # (auto) 0.27 K/uL (0-0.5); Eosinophils % (auto) 1.6 %; Hematocrit (blood only) 34.5 % (37-47); Hemoglobin 11.6 g/dL (12.0-16.0); Immature Granulocytes # (auto) 0.23 K/uL (0.00-0.02); Immature Granulocytes % (auto) 1.3 %; Lymphocytes # (auto) 2.14 K/uL (1.2-3.4); Lymphocytes % (auto) 12.5 %; Mean Corpuscular Hemoglobin 28.6 pg (25-34); Mean Corpuscular Hgb Conc 33.6 g/dL (32-36); Mean Platelet Volume 9.1 fL (7.4-10.4); Monocytes # (auto) 1.44 K/uL (0.11-0.59); Monocytes % (auto) 8.4 %; Neutrophils # (auto) 12.97 K/uL (1.4-6.5); Platelet Count 395 K/uL (130-400); RDW Coefficient of Variation 14.9 % (11.5-14.5); RDW Standard Deviation 46.4 fL (36.4-46.3); Red Blood Count 4.06 M/uL (4.2-5.4); White Blood Count 17.08 K/uL (4.8-10.8)
[2019-11-30] MEDS: VANCOMYCIN HCL 1,000 MG in SODIUM CHLORIDE 0.9% 250 ML IV SCH ×3 (06:07→21:44)
[2019-11-30 06:26] LABS: Albumin Level 2.5 gm/dl (3.4-5.0); BUN Creatinine Ratio 8.6 (10-20); Calcium 8.1 mg/dl (8.5-10.1); Creatinine Clr Calc Pharmacy 123.4 ml/min; Est GFR (African American) 120.2; Est GFR (Non-African American) 103.7; Potassium 3.2 mmol/L (3.5-5.1)
[2019-11-30 06:28] LABS: Albumin Globulin Ratio 0.7 (0.9-2); Bilirubin,Total 0.6 mg/dl (0.2-1); Globulin 3.4 gm/dl (2.5-4.0); Total Protein 5.9 gm/dl (6.4-8.2)
[2019-11-30] MEDS: ROSUVASTATIN CALCIUM 20 MG TAB PO SCH (08:08)
[2019-11-30] MEDS: CITALOPRAM 20 MG TAB PO SCH (08:08)
[2019-11-30] MEDS: PANTOprazole 40 MG TAB PO SCH (08:08)
[2019-11-30] MEDS: SODIUM CHLORIDE 0.65% NA SOLN 45 ML (OCEAN) NAE SCH ×3 (08:09→21:45)
[2019-11-30] MEDS: LORATADINE 10 MG TAB PO SCH (08:09)
[2019-11-30] MEDS: ENOXAPARIN INJ 30 MG/0.3 ML SYR SQ SCH (08:09)
[2019-11-30] MEDS ORDERED: POTASSIUM CHLORIDE 20 MEQ TABCR PO STA (08:16)
--- NOTE | 2019-11-30 08:17 | Surgery Progress Note ---
Date of Service pt said she feels better today, no abdominal pain, no fever, pt walked yesterday, pt tolerated diet, no nausea, no vomiting, but WBC 17.000. November 30, 2019 Assessment & Plan (1) Perforated abdominal viscus: 64 year-old female presented to ED with sudden onset of abdominal pain that began last evening that increase in nature throughout the night. Associated sweats and lightheadedness. Leukocytosis of 14k. CT scan of abdomen and pelvis without contrast showing scattered pneumoperitoneum with ascites in pelvis and right colic gutter concerning for perforation, site of perforation unclear on CT scan. Abdomen is soft but involuntary and voluntary guarding with rigidity and rebound tenderness on examination. Plan: Discussed with patient findings on CT scan concerning for possible bowel perforation. Discussed need for exploration and possible bowel resection and o stomy to control infection and prevent further infection, sepsis, or even . Dr. Gomes discussed procedure and risks as well with patient. Informed consent obtained by patient. Continue IV Cipro/Flagyl Continue pain management To OR emergently for ex lap, possible bowel resection, possible ostomy Med/surg postop Keep NPO I ( Yunior Gomes MD ) did talk to pt about benefits, risks and alternatives of the exploratory laparotomy, possible bowel resection, stoma, the risks - infection, bleeding, abscess, sepsis, multiple organs failure, MN, DVT, , pt understood, she agrees with the surgery, I answered all questions, 11/22/2019 5:46PM, consult ID for sepsis, 11/29/2019 11:23am doing fine clinically, but wbc 14,000, I agree with CT scan to R/O abscess, D/W benefits, risks and alternatives of the CT scan exam, pt understood, she agrees c with the CT scan, culture GEORGE drainage fluid, will F/U 11/30/2019 WBC 17,000, but pt feels better, stable, possible pt has pelvic and around c olostomy site abscess, change vancomycin + zosyn yesterday, re-consult ID possible pt needs interventional radiologist do percutaneous drainage abscess, if the WBC is still go up tomorrow, repeat labs in am, will F/U D/W possible drainage abscess pt understood, she agrees with [facility] plan, I answered all questions, (2) Pneumoperitoneum: Plan as above Dr. Gomes has seen and examined patient, agrees with above. Supervising Physician Co-Signing Physician Notes pnt seen and examined, agree with above. s/p north's, doing well, +stool from ostomy, feels hungry. abd soft, nt, nd, ostomy pink and patent w/ stool and gas. GEORGE's with cloudy output. wbc 12 from 10. low fiber diet as tolerated, continue george's and iv abx. possible d/c tomorrow or Monday. f/u with Dr. Gomes. Subjective feeling well. maldonado diet. denies pain. Physical Exam Constitutional: WD/WN, vitals as above well developed and well nourished Neck: trachea midline, no thyromegaly Respiratory: normal respiratory effort, lungs clear to auscultation normal respiratory effort Cardiovascular: RRR, no murmur, no edema Rate/Rhythm: regular rate and regular rhythm Gastrointestinal (Abdomen): Percussion/Palpation: abdomen soft no tenderness or skin redness around colostomy site, no distend abdomen, BS + Musculoskeletal: no cyanosis or clubbing, extremities motor strength 5/5 Neurologic: awake Psychiatric: Orientation: alert and oriented x 3 Results & Data Vital Signs (Past 12 Hours) Vital Signs Temp Pulse Pulse Pulse Resp BP BP 11/30/19 07:26 36.4 C L 86 18 145/90 H 11/30/19 02:36 37.1 C 78 18 139/84 11/29/19 23:15 36.5 C 83 18 143/83 H 11/29/19 22:32 100 H Pulse Ox 11/30/19 07:26 94 11/30/19 02:36 92 11/29/19 23:15 96 11/29/19 22:32
[2019-11-30] MEDS: POTASSIUM CHLORIDE 10 MEQ TABCR PO SCH ×2 (10:05→21:44)
[2019-11-30] MEDS: POTASSIUM CHLORIDE / WTR 10 MEQ/100 ML PLCT IV SCH ×2 (10:07→10:12)
--- NOTE | 2019-11-30 11:01 | Hospitalist Progress Note ---
Date of Service November 30, 2019 Assessment & Plan (1) SIRS (systemic inflammatory response syndrome): Mrs. Carreon is a 64 yo woman now status post exploratory laparotomy with partial sigmoid colectomy and colostomy formation for perforated abdominal viscus on 11/19. The perforation was thought to be secondary to a very hard fecal impaction in the sigmoid colon. Hospitalist Team was consulted for co- management of sepsis. SEPSIS, present on admission, due to perforated viscous-was resolved- improved overall, however with leukocytosis again worsening the last 4 days up to 17 K today although clinically feels much improved today since changing abx to Zosyn/Vanco on 11/28 Remains afebrile, no symptoms of pneumonia, UTI Urinalysis contaminated with epithelial cells and no symptoms of UTI Peritoneal fluid with Bacteroides and Clostridium species not perfringens - was on Cipro and Flagyl for her peritonitis x 9 days but then converted to Zosyn/Vanc on 11/28 CT abd/pel repeated 11/28 shows possible rectouterine pelvic fluid collection 4.5cm--> added on IV Vanco/Zosyn -JOSEPH drains remain in place with purulent fluid draining--> recultured 11/28- follow deep wound culture --> gram stain with many GPRs, rare GNR and GPC -if leukocytosis not improving, consider percutaneous drainage as per Surgery recommendation -Continue to follow blood cultures-no growth to date -Follow CBC (2) Pelvic abscess: as above (3) Tachycardia: resolved, secondary to sepsis -Treated infection with antibiotics and given IV fluids for hydration (4) Perforated abdominal viscus: s/p sigmoid resection, colostomy as above, secondary to fecal impaction in the sigmoid colon - wound care for ostomy teaching -Continue pain control with Tylenol as needed-she is not taking any IV Dilaudid or Percocet NGT has been pulled, [place] catheter pulled JOSEPH drains x2 remain in place and faith will need to be removed in approximately 4 weeks post-op Postop surgical management as per surgery team-with pelvic abscess as above -Encourage ambulation Tolerating a low fiber diet (5) Chronic sinusitis: With a long history of allergies and chronic sinusitis Was having an exacerbation of symptoms here especially with having NG tube in place Now improved with adding loratadine and nasal saline -Added on nasal saline -Discouraged use of Sudafed frequently as it is a vasoconstrictor while trying to heal from her surgery -Continue Singulair -Continue on loratadine 10 mg daily -Patient reports Flonase in the past caused her significant headaches-we will avoid use -Uses albuterol as needed for previous diagnosis of asthma although recent consultation with pulmonology as an outpatient to reveal she likely does not have asthma (6) GERD (gastroesophageal reflux disease): Continue Protonix (7) Hyperlipidemia: -Continue rosuvastatin (8) Anxiety: No acute issues -Continue citalopram (9) Obstructive sleep apnea: Mild on sleep study in 2013-could not tolerate CPAP at that time (10) Hyponatremia: Sodium decreased to 131 and now improved to 134 and stable-likely secondary to receiving hypotonic fluids and some volume overload weight was way up and now coming back down No longer on IV fluids -Consider Lasix if becomes hypoxic or weight continues to trend upward if sodium remains low but will hold off for now -Follow BMP in the morning (11) Renal mass, right: 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 She would be okay with going home with home health Continued stay now for pelvic abscess, possible transfer for IR procedure/perc drainage of abscess if not improving The hospitalist service will continue to follow Admission and Anticipated Discharge Date Admission Date: November 20, 2019 Subjective Pt feeling better today, less tired. Has more energy. Very minimal abd pain. Feels cooler today, no further hot flashes. No fevers, no CP or SOB. Tele with [facility], [facility] I communicated today with Dr. Rodas of ID and Dr. Gomes of SUrgery Review of Systems Review of Systems: All systems reviewed & are unremarkable except as noted in HPI & below Physical Exam Constitutional: WD/WN, vitals as above average body habitus; no acute distress Eyes: + anicteric sclerae Neck: trachea midline, no thyromegaly Respiratory: normal respiratory effort, lungs clear to auscultation Cardiovascular: RRR, no murmur, no edema Chest (Breasts): Chest: normal inspection of chest Gastrointestinal (Abdomen): Inspection/Auscultation: normal bowel sounds; + abdomen abnormal to inspection (Colostomy bag in place with gas and small amount brown stool and liquid) and abdomen not distended Percussion/Palpation: ab domen soft; abdomen nontender and no guarding Musculoskeletal: Extremities: extremities normal to inspection; no cyanosis and no clubbing Skin: no rashes, warm and dry + wound (surgical wound with faith, no erythema) Neurologic: moves all extremities and awake; no focal motor deficits Psychiatric: Orientation: alert, oriented to person, oriented to place, oriented to time and cooperative Eye Contact: good eye contact Speech: normal rate/rhythm/volume of speech Affect: euthymic affect Lymphatic: no lymphedema Results & Data Results & Data ([facility]) Vital Signs (Past 12 Hours) Vital Signs Temp Pulse Pulse Resp BP BP Pulse Ox 11/30/19 07:26 36.4 C L 86 18 145/90 H 94 11/30/19 02:36 37.1 C 78 18 139/84 92 11/29/19 23:15 36.5 C 83 18 143/83 H 96 Laboratory Results 11/30/19 11/30/19 Range/Units 05:32 05:32 WBC 17.08 H (4.8-10.8) K/uL RBC 4.06 L (4.2-5.4) M/uL Hgb 11.6 L (12.0-16.0) g/dL Hct 34.5 L (37-47) % MCV 85.0 (80-100) fL MCH 28.6 (25-34) pg MCHC 33.6 (32-36) g/dL RDW Std Deviation 46.4 H (36.4-46.3) fL RDW Coeff of Sobia 14.9 H (11.5-14.5) % Plt Count 395 (130-400) K/uL MPV 9.1 (7.4-10.4) fL Immature Gran % (Auto) 1.3 % Neut % (Auto) 76.0 % Lymph % (Auto) 12.5 % [place] % (Auto) 8.4 % Eos % (Auto) 1.6 % Baso % (Auto) 0.2 % Immature Gran # (Auto) 0.23 H (0.00-0.02) K/uL Neut # (Auto) 12.97 H (1.4-6.5) K/uL Lymph # (Auto) 2.14 (1.2-3.4) K/uL [place] # (Auto) 1.44 H (0.11-0.59) K/uL Eos # (Auto) 0.27 (0-0.5) K/uL Baso # (Auto) 0.03 (0-0.2) K/uL Sodium 134 L (136-145) mmol/L Potassium 3.2 L (3.5-5.1) mmol/L Chloride 104 (98-107) mmol/L Carbon Dioxide 23 (21-32) mmol/L Anion Gap 7.0 (3-11) BUN 4 L (7-18) mg/dl Creatinine 0.49 L (0.6-1.2) mg/dl Est Cr Clr Drug Dosing 123.4 ml/min Est GFR ( Amer) 120.2 Est GFR (Non-Af Amer) 103.7 BUN/Creatinine Ratio 8.6 L (10-20) Glucose 129 H (70-99) mg/dl Calcium 8.1 L (8.5-10.1) mg/dl Total Bilirubin 0.6 (0.2-1) mg/dl AST 25 (15-37) U/L ALT 42 (12-78) U/L Alkaline Phosphatase 81 (45-117) U/L Total Protein 5.9 L (6.4-8.2) gm/dl Albumin 2.5 L (3.4-5.0) gm/dl Globulin 3.4 (2.5-4.0) gm/dl Albumin/Globulin Ratio 0.7 L (0.9-2) PG Care Time/CCT Total # of Minutes Spent Total Time Spent with Patient: Total time spent is greater than 50% in coordination of care (as documented) at patient's floor/unit and/or counseling patient: Coding Level of Care Code 04859 Subseq Hosp Care Lvl 3 Diagnoses SIRS (systemic inflammatory response syndrome) R65.10 Pelvic abscess Tachycardia R00.0 Perforated abdominal viscus R19.8 Chronic sinusitis J32.9 GERD (gastroesophageal reflux disease) K21.9 Hyperlipidemia E78.5 Anxiety F41.9 Obstructive sleep apnea G47.33 Hyponatremia E87.1 Renal mass, right N28.89 DVT prophylaxis Z29.9
[2019-11-30] MEDS: MONTELUKAST SODIUM 10 MG TABLET PO SCH (11:42)
[2019-11-30] MEDS ORDERED: VANCOMYCIN TROUGH ONE (13:30)
--- NOTE | 2019-11-30 14:13 | Pharmacy Report ---
Pharmacy Abx Dose Short Note - Date of Service November 30, 2019 - Assessment & Plan Assessment 64 year old F receiving vancomycin and Zosyn for treatment of perforated abdominal viscus/peritonitis Day # 2 of antimicrobial therapy. Peritoneal fluid growing Bacteroides thetaiotamicron and Clostridium sp. NOT perfringens Plan Vancomycin * Trough level of 14.7 mcg/mL is slightly subtherapeutic, but also obtained prior to steady state * Continue dose of 1000 mg IV every 8 hours * Goal trough level: 15 to 20 mcg/mL * Follow-up trough level ordered for 12/02/19 * Will follow renal function and obtain trough level sooner if significantly changed Zosyn * Continue 3.375 g IV q8h Pharmacy will continue to follow and will adjust dose/frequency as necessary. Thank you.
[2019-12-01] MEDS: PIPERACILLIN/TAZOBACTAM 3.375 GM in DEXTROSE 5% 100 ML IV SCH ×3 (00:12→16:46)
[2019-12-01] MEDS: VANCOMYCIN HCL 1,000 MG in SODIUM CHLORIDE 0.9% 250 ML IV SCH ×3 (05:40→20:50)
[2019-12-01 07:02] LABS: Basophils # (auto) 0.03 K/uL (0-0.2); Basophils % (auto) 0.2 %; Eosinophils # (auto) 0.34 K/uL (0-0.5); Eosinophils % (auto) 2.2 %; Hematocrit (blood only) 32.6 % (37-47); Hemoglobin 10.8 g/dL (12.0-16.0); Immature Granulocytes # (auto) 0.11 K/uL (0.00-0.02); Immature Granulocytes % (auto) 0.7 %; Lymphocytes % (auto) 11.7 %; Mean Corpuscular Hemoglobin 28.9 pg (25-34); Mean Corpuscular Hgb Conc 33.1 g/dL (32-36); Mean Corpuscular Volume 87.2 fL (80-100); Mean Platelet Volume 8.9 fL (7.4-10.4); Monocytes # (auto) 1.53 K/uL (0.11-0.59); Neutrophils # (auto) 11.53 K/uL (1.4-6.5); Neutrophils % (auto) 75.2 %; Platelet Count 431 K/uL (130-400); RDW Coefficient of Variation 15.4 % (11.5-14.5); RDW Standard Deviation 48.9 fL (36.4-46.3); Red Blood Count 3.74 M/uL (4.2-5.4); White Blood Count 15.34 K/uL (4.8-10.8)
[2019-12-01 07:21] LABS: Albumin Level 2.6 gm/dl (3.4-5.0); Calcium 8.4 mg/dl (8.5-10.1); Creatinine Clr Calc Pharmacy 61.6 ml/min; Est GFR (African American) 71.2; Est GFR (Non-African American) 61.4; Potassium 3.1 mmol/L (3.5-5.1)
[2019-12-01 07:26] LABS: Albumin Globulin Ratio 0.8 (0.9-2); Bilirubin,Total 0.6 mg/dl (0.2-1); Globulin 3.4 gm/dl (2.5-4.0)
[2019-12-01] MEDS: ENOXAPARIN INJ 30 MG/0.3 ML SYR SQ SCH (08:18)
[2019-12-01] MEDS: LORATADINE 10 MG TAB PO SCH (08:19)
[2019-12-01] MEDS: POTASSIUM CHLORIDE 10 MEQ TABCR PO SCH ×2 (08:19→21:16)
[2019-12-01] MEDS: SODIUM CHLORIDE 0.65% NA SOLN 45 ML (OCEAN) NAE SCH ×3 (08:19→21:16)
[2019-12-01] MEDS: ROSUVASTATIN CALCIUM 20 MG TAB PO SCH (08:19)
[2019-12-01] MEDS: CITALOPRAM 20 MG TAB PO SCH (08:19)
[2019-12-01] MEDS: PANTOprazole 40 MG TAB PO SCH (08:20)
[2019-12-01] MEDS: POTASSIUM CHLORIDE / WTR 10 MEQ/100 ML PLCT IV SCH ×4 (09:19→12:16)
[2019-12-01] MEDS ORDERED: POTASSIUM CHLORIDE 10 MEQ TABCR PO STA (10:31)
--- NOTE | 2019-12-01 11:08 | Surgery Progress Note ---
Date of Service pt feels better, no abdominal pain, no fever, down to WBC 15,000. December 01, 2019 Assessment & Plan (1) Perforated abdominal viscus: 64 year-old female presented to ED with sudden onset of abdominal pain that began last evening that increase in nature throughout the night. A ssociated sweats and lightheadedness. Leukocytosis of 14k. CT scan of abdomen and pelvis without contrast showing scattered pneumoperitoneum with ascites in pelvis and right colic gutter concerning for perforation, site of perforation unclear on CT scan. Abdomen is soft but involuntary and voluntary guarding with rigidity and rebound tenderness on examination. Plan: Discussed with patient findings on CT scan concerning for possible bowel perforation. Discussed need for exploration and possible bowel resection and ostomy to control infection and prevent further infection, sepsis, or even . Dr. Gomes discussed procedure and risks as well with patient. Informed consent obtained by patient. Continue IV Cipro/Flagyl Continue pain management To OR emergently for ex lap, possible bowel resection, possible ostomy Med/surg postop Keep NPO I ( Yunior Gomes MD ) did talk to pt about benefits, risks and alternatives of the exploratory laparotomy, possible bowel resection, stoma, the risks - infection, bleeding, abscess, sepsis, multiple organs failure, CO, DVT, , pt understood, she agrees with the surgery, I answered all questions, 11/22/2019 5:46PM, consult ID for sepsis, 11/29/2019 11:23am doing fine clinically, but wbc 14,000, I agree with CT scan to R/O abscess, D/W benefits, risks and alternatives of the CT scan exam, pt understood, she agrees c with the CT scan, culture GEORGE drainage fluid, will F/U 11/30/2019 WBC 17,000, but pt feels better, stable, possible pt has pelvic and around colostomy site abscess, change vancomycin + zosyn yesterday, re-consult ID possible pt needs interventional radiologist do percutaneous drainage abscess, if the WBC is still go up tomorrow, repeat labs in am, will F/U D/W possible drainage abscess pt understood, she agrees with [facility] plan, I answered all questions, 12/01/2019 11:07am doing better, continue iv antibiotic, OOB repeat labs in am, will F/U (2) Pneumoperitoneum: Plan as above Dr. Gomes has seen and examined patient, agrees with above. Supervising Physician Co-Signing Physician Notes pnt seen and examined, agree with above. s/p north's, doing well, +stool from ostomy, feels hungry. abd soft, nt, nd, ostomy pink and patent w/ stool and gas. GEORGE's with cloudy output. wbc 12 from 10. low fiber diet as tolerated, continue george's and iv abx. possible d/c tomorrow or Monday. f/u with Dr. Gomes. Subjective feeling well. maldonado diet. denies pain. Physical Exam Constitutional: WD/WN, vitals as above well developed and well nourished Neck: trachea midline, no thyromegaly Respiratory: normal respiratory effort, lungs clear to auscultation normal respiratory effort Cardiovascular: RRR, no murmur, no edema Rate/Rhythm: regular rate and regular rhythm Gastrointestinal (Abdomen): Percussion/Palpation: abdomen soft no tenderness, no redness on skin, no distend, BS + Musculoskeletal: no cyanosis or clubbing, extremities motor strength 5/5 Neurologic: awake Psychiatric: Orientation: alert and oriented x 3 Results & Data Vital Signs (Past 12 Hours) Vital Signs Temp Pulse Pulse Resp BP BP Pulse Ox 12/01/19 07:41 91 H 12/01/19 07:29 36.5 C 99 H 18 153/87 H 93 12/01/19 04:34 36.8 C 78 20 134/76 95 12/01/19 04:13 97 H 11/30/19 23:33 36.8 C 92 H 20 127/75 95
[2019-12-01] MEDS: MONTELUKAST SODIUM 10 MG TABLET PO SCH (11:17)
--- NOTE | 2019-12-01 12:16 | Hospitalist Progress Note ---
Date of Service December 01, 2019 Assessment & Plan (1) SIRS (systemic inflammatory response syndrome): Mrs. Carreon is a 64 yo woman now status post exploratory laparotomy with partial sigmoid colectomy and colostomy formation for perforated abdominal viscus on 11/19. The perforation was thought to be secondary to a very hard fecal impaction in the sigmoid colon. Hospitalist Team was consulted for co- management of sepsis. SEPSIS, present on admission, due to perforated viscous-was resolved- improved overall, however with leukocytosis worsening up to 17 K --> CT abd/pel repeated 11/28 shows possible rectouterine pelvic fluid collection 4.5cm--> added on IV Vanco/Zosyn, JOSEPH drains with purulent drainage--> now leukocytosis improving, feeling better, WBC now back down to 15k Remains afebrile, no symptoms of pneumonia, UTI Urinalysis contaminated with epithelial cells and no symptoms of UTI Peritoneal fluid with Bacteroides and Clostridium species not perfringens - was on Cipro and Flagyl for her peritonitis x 9 days but then converted to Zosyn/Vanc on 11/28 as above -JOSEPH drains remain in place with purulent fluid draining--> recultured 11/28- follow deep wound culture --> gram stain with many GPRs, rare GNR and GPC,cx pending -if leukocytosis worsens again, consider percutaneous drainage as per Surgery recommendation -Continue to follow blood cultures-no growth to date -Follow CBC (2) Pelvic abscess: as above (3) Tachycardia: resolved, secondary to sepsis -Treated infection with antibiotics and given IV fluids for hydration -ok to move to med/surg floor (4) Perforated abdominal viscus: s/p sigmoid resection, colostomy as above, secondary to fecal impaction in the sigmoid colon - wound care for ostomy teaching -Continue pain control with Tylenol as needed NGT has been pulled, [place] catheter pulled JOSEPH drains x2 remain in place and faith will need to be removed in approximately 4 weeks post-op Postop surgical management as per surgery team-with pelvic abscess as above -Encourage ambulation Tolerating a low fiber diet (5) Chronic sinusitis: With a long history of allergies and chronic sinusitis Was having an exacerbation of symptoms here especially with having NG tube in place Now improved with adding loratadine and nasal saline No more chronic cough and has not required her usual home sudafed -continue nasal saline -Discouraged use of Sudafed frequently as it is a vasoconstrictor while trying to heal from her surgery -Continue Singulair -Continue on loratadine 10 mg daily -Patient reports Flonase in the past caused her significant headaches-we will avoid use -Uses albuterol as needed for previous diagnosis of asthma although recent consultation with pulmonology as an outpatient to reveal she likely does not have asthma (6) GERD (gastroesophageal reflux disease): Continue Protonix (7) Hyperlipidemia: -Continue rosuvastatin (8) Anxiety: No acute issues -Continue citalopram (9) Obstructive sleep apnea: Mild on sleep study in 2013-could not tolerate CPAP at that time (10) Hyponatremia: Sodium decreased to 131 and now improved to 137--was likely secondary to volume overload and hypotonic IVFs weight was 12kg up from baseline and now back down to baseline weight 80kg No longer on IV fluids -Follow BMP in the morning (11) Renal mass, right: 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 She would be okay with going home with home health May need IV abx for 1-2 weeks--> CM to see if a covered benefit Transfer off tele to Med/Surg floor-discussed with attending Surgeon who approves The hospitalist service will continue to follow Admission and Anticipated Discharge Date Admission Date: November 20, 2019 Anticipated date of discharge: 12/03/19 Subjective Feeling better today. Reports starting to get restless from being here for so long and it's hard to find people to walk with her out in the hallways. Is eating well, making urine, no N/V. No cough or SOB, no chest pain. No abd pain. Tele with [facility] Review of Systems Review of Systems: All systems reviewed & are unremarkable except as noted in HPI & below Physical Exam Constitutional: WD/WN, vitals as above average body habitus; no acute distress Eyes: + anicteric sclerae Neck: trachea midline, no thyromegaly Respiratory: normal respiratory effort, lungs clear to auscultation Cardiovascular: RRR, no murmur, no edema Chest (Breasts): Chest: normal inspection of chest Gastrointestinal (Abdomen): Inspection/Auscultation: normal bowel sounds; + abdomen abnormal to inspection (Colostomy bag in place; JOSEPH both drains with anusha purulent drainage ) and abdomen not distended Percussion/Palpation: abdomen soft; abdomen nontender and no guarding Musculoskeletal: Extremities: extremities normal to inspection; no cyanosis and no clubbing Skin: no rashes, warm and dry + wound (surgical wound with faith, no erythema) Neurologic: moves all extremities and awake; no focal motor deficits Psychiatric: Orientation: alert, oriented to person, oriented to place, john ented to time and cooperative Eye Contact: good eye contact Speech: normal rate/rhythm/volume of speech Affect: euthymic affect Lymphatic: no lymphedema Results & Data Results & Data ([facility]) Vital Signs (Past 12 Hours) Vital Signs Temp Pulse Pulse Resp BP BP Pulse Ox 12/01/19 11:33 36.8 C 85 18 136/82 96 12/01/19 07:41 91 H 12/01/19 07:29 36.5 C 99 H 18 153/87 H 93 12/01/19 04:34 36.8 C 78 20 134/76 95 12/01/19 04:13 97 H Laboratory Results 12/01/19 12/01/19 11/30/19 Range/Units 06:34 06:34 13:17 WBC 15.34 H (4.8-10.8) K/uL RBC 3.74 L (4.2-5.4) M/uL Hgb 10.8 L (12.0-16.0) g/dL Hct 32.6 L (37-47) % MCV 87.2 (80-100) fL MCH 28.9 (25-34) pg MCHC 33.1 (32-36) g/dL RDW Std Deviation 48.9 H (36.4-46.3) fL RDW Coeff of Sobia 15.4 H (11.5-14.5) % Plt Count 431 H (130-400) K/uL MPV 8.9 (7.4-10.4) fL Immature Gran % (Auto) 0.7 % Neut % (Auto) 75.2 % Lymph % (Auto) 11.7 % [place] % (Auto) 10.0 % Eos % (Auto) 2.2 % Baso % (Auto) 0.2 % Immature Gran # (Auto) 0.11 H (0.00-0.02) K/uL Neut # (Auto) 11.53 H (1.4-6.5) K/uL Lymph # (Auto) 1.80 (1.2-3.4) K/uL [place] # (Auto) 1.53 H (0.11-0.59) K/uL Eos # (Auto) 0.34 (0-0.5) K/uL Baso # (Auto) 0.03 (0-0.2) K/uL Sodium 137 (136-145) mmol/L Potassium 3.1 L (3.5-5.1) mmol/L Chloride 107 (98-107) mmol/L Carbon Dioxide 25 (21-32) mmol/L Anion Gap 6.0 (3-11) BUN 5 L (7-18) mg/dl Creatinine 0.98 D (0.6-1.2) mg/dl Est Cr Clr Drug Dosing 61.6 ml/min Est GFR ( Amer) 71.2 Est GFR (Non-Af Amer) 61.4 BUN/Creatinine Ratio 5.0 L (10-20) Glucose 159 H (70-99) mg/dl Calcium 8.4 L (8.5-10.1) mg/dl Total Bilirubin 0.6 (0.2-1) mg/dl AST 33 (15-37) U/L ALT 42 (12-78) U/L Alkaline Phosphatase 83 (45-117) U/L Total Protein 6.0 L (6.4-8.2) gm/dl Albumin 2.6 L (3.4-5.0) gm/dl Globulin 3.4 (2.5-4.0) gm/dl Albumin/Globulin Ratio 0.8 L (0.9-2) Vancomycin Trough 14.7 (See Comment) mcg/ml PG Care Time/CCT Total # of Minutes Spent Total Time Spent with Patient: Total time spent is greater than 50% in coordination of care (as documented) at patient's floor/unit and/or counseling patient: Coding Level of Care Code 46784 Subseq Hosp Care Lvl 3 Diagnoses SIRS (systemic inflammatory response syndrome) R65.10 Pelvic abscess Tachycardia R00.0 Perforated abdominal viscus R19.8 Chronic sinusitis J32.9 GERD (gastroesophageal reflux disease) K21.9 Hyperlipidemia E78.5 Anxiety F41.9 Obstructive sleep apnea G47.33 Hyponatremia E87.1 Renal mass, right N28.89 Hypokalemia E87.6 DVT prophylaxis Z29.9
[2019-12-01] MEDS ORDERED: VANCOMYCIN TROUGH ONE (13:30)
--- NOTE | 2019-12-01 14:14 | Pharmacy Report ---
Pharmacy Abx Dose Short Note - Date of Service December 01, 2019 - Assessment & Plan Assessment 64 year old F receiving vancomycin and Zosyn for treatment of sepsis secondary to perforated abdominal viscus/peritonitis Trough originally ordered for tomorrow, but moved it to today given significant increase in SCr (0.49 -> 0.98 mg/dL) Day # 3 of antimicrobial therapy. Plan Vancomycin * Trough level of 22.8 mcg/mL is supratherapeutic * Change to 1000 mg IV every 12 hours * Goal trough level for this indication : 15 to 20 mcg/mL * Given MORGAN will reassess clearance in AM and adjust dosing/trough schedule as appropriate Zosyn * 3.375 g IV q8h remains appropriate Pharmacy will continue to follow and will adjust dose/frequency as necessary. Thank you.
[2019-12-01] MEDS ORDERED: POTASSIUM CHLORIDE 10 MEQ TABCR PO SCH (21:00)
[2019-12-02] MEDS: PIPERACILLIN/TAZOBACTAM 3.375 GM in DEXTROSE 5% 100 ML IV SCH ×3 (00:49→16:17)
[2019-12-02] MEDS ORDERED: VANCOMYCIN TROUGH ONE (05:30)
[2019-12-02] MEDS: VANCOMYCIN HCL 1,000 MG in SODIUM CHLORIDE 0.9% 250 ML IV SCH (06:11)
[2019-12-02 06:55] LABS: Basophils # (auto) 0.02 K/uL (0-0.2); Basophils % (auto) 0.1 %; Hematocrit (blood only) 31.1 % (37-47); Hemoglobin 10.2 g/dL (12.0-16.0); Immature Granulocytes # (auto) 0.07 K/uL (0.00-0.02); Immature Granulocytes % (auto) 0.5 %; Lymphocytes # (auto) 1.32 K/uL (1.2-3.4); Lymphocytes % (auto) 8.7 %; Mean Corpuscular Hemoglobin 28.9 pg (25-34); Mean Corpuscular Hgb Conc 32.8 g/dL (32-36); Mean Corpuscular Volume 88.1 fL (80-100); Monocytes # (auto) 1.44 K/uL (0.11-0.59); Monocytes % (auto) 9.5 %; Neutrophils # (auto) 11.99 K/uL (1.4-6.5); Neutrophils % (auto) 79.2 %; Platelet Count 427 K/uL (130-400); RDW Coefficient of Variation 15.4 % (11.5-14.5); RDW Standard Deviation 49.8 fL (36.4-46.3); Red Blood Count 3.53 M/uL (4.2-5.4); White Blood Count 15.14 K/uL (4.8-10.8)
[2019-12-02 07:24] LABS: BUN Creatinine Ratio 4.4 (10-20); Calcium 8.8 mg/dl (8.5-10.1); Creatinine Clr Calc Pharmacy 48.3 ml/min; Est GFR (Non-African American) 45.7; Magnesium 2.1 mg/dl (1.8-2.4); Potassium 3.3 mmol/L (3.5-5.1)
--- NOTE | 2019-12-02 08:31 | Surgery Progress Note ---
Date of Service pt said she feels better, no abdominal pain, no fever, she tolerated diet, GEORGE 50ml /day, December 02, 2019 Assessment & Plan (1) Perforated abdominal viscus: 64 year-old female presented to ED with sudden onset of abdominal pain that began last evening that increase in nature throughout the night. Associated sweats and lightheadedness. Leukocytosis of 14k. CT scan of abdomen and pelvis without contrast showing scattered pneumoperitoneum with ascites in pelvis and right colic gutter concerning for perforation, site of perforation unclear on CT scan. Abdomen is soft but involuntary and voluntary guarding with rigidity and rebound tenderness on examination. Plan: Discussed with patient findings on CT scan concerning for possible bowel perforation. Discussed need for exploration and possible bowel resection and ostomy to control infection and prevent further infection, sepsis, or even . Dr. Gomes discussed procedure and risks as well with patient. Informed consent obtained by patient. Continue IV Cipro/Flagyl Continue pain management To OR emergently for ex lap, possible bowel resection, possible ostomy Med/surg postop Keep NPO I ( Yunior Gomes MD ) did talk to pt about benefits, risks and alternatives of the exploratory laparotomy, possible bowel resection, stoma, the risks - infection, bleeding, abscess, sepsis, multiple organs failure, DC, DVT, , pt understood, she agrees with the surgery, I answered all questions, 11/22/2019 5:46PM, consult ID for sepsis, 11/29/2019 11:23am doing fine clinically, but wbc 14,000, I agree with CT scan to R/O abscess, D/W benefits, risks and alternatives of the CT scan exam, pt understood, she agrees c with the CT scan, culture GEORGE drainage fluid, will F/U 11/30/2019 WBC 17,000, but pt feels better, stable, possible pt has pelvic and around colostomy site abscess, change vancomycin + zosyn yesterday, re-consult ID possible pt needs interventional radiologist do percutaneous drainage abscess, if the WBC is still go up tomorrow, repeat labs in am, will F/U D/W possible drainage abscess pt understood, she agrees with [facility] plan, I answered all questions, 12/01/2019 11:07am doing better, continue iv antibiotic, OOB repeat labs in am, will F/U 12/02/19 8:30AM, doing fine, WBC 15,000 today, continue iv antibiotic, will F/U (2) Pneumoperitoneum: Plan as above Dr. Gomes has seen and examined patient, agrees with above. Supervising Physician Co-Signing Physician Notes pnt seen and examined, agree with above. s/p north's, doing well, +stool from ostomy, feels hungry. abd soft, nt, nd, ostomy pink and patent w/ stool and gas. GEORGE's with cloudy output. wbc 12 from 10. low fiber diet as tolerated, continue george's and iv abx. possible d/c tomorrow or Monday. f/u with Dr. Gomes. Subjective feeling well. maldonado diet. denies pain. Physical Exam Constitutional: WD/WN, vitals as above well developed and well nourished Neck: trachea midline, no thyromegaly Respiratory: normal respiratory effort, lungs clear to auscultation normal respiratory effort Cardiovascular: RRR, no murmur, no edema Rate/Rhythm: regular rate and regular rhythm Gastrointestinal (Abdomen): Percussion/Palpation: abdomen soft no tenderness, incision heals well, no redness, no drainage, no distend Musculoskeletal: no cyanosis or clubbing, extremities motor strength 5/5 Neurologic: awake Psychiatric: Orientation: alert and oriented x 3 Results & Data Vital Signs (Past 12 Hours) Vital Signs Temp Pulse Resp BP Pulse Ox 12/02/19 07:43 36.4 C L 80 16 137/83 94 12/02/19 05:15 36.8 C 86 15 146/81 H 95 12/01/19 22:43 37.0 C 92 H 20 146/71 H 95
[2019-12-02] MEDS: CITALOPRAM 20 MG TAB PO SCH (08:41)
[2019-12-02] MEDS: PANTOprazole 40 MG TAB PO SCH (08:42)
[2019-12-02] MEDS: ROSUVASTATIN CALCIUM 20 MG TAB PO SCH (08:42)
[2019-12-02] MEDS: SODIUM CHLORIDE 0.65% NA SOLN 45 ML (OCEAN) NAE SCH ×3 (08:42→20:19)
[2019-12-02] MEDS: LORATADINE 10 MG TAB PO SCH (08:42)
[2019-12-02] MEDS: POTASSIUM CHLORIDE 10 MEQ TABCR PO SCH (08:42)
[2019-12-02] MEDS: ENOXAPARIN INJ 30 MG/0.3 ML SYR SQ SCH (08:42)
[2019-12-02] MEDS: MONTELUKAST SODIUM 10 MG TABLET PO SCH (11:30)
--- NOTE | 2019-12-02 12:16 | Infectious Disease Progress Nt ---
Date of Service December 02, 2019 Assessment & Plan (1) Perforated abdominal viscus: continue current abx and monitor progress, follow culture. she is clinically stable currently. Admission and Anticipated Discharge Date Admission Date: November 20, 2019 Subjective pt seen in f/u, she is oob to chair, feeling muh better. afebrile. eating and drinking well. no abd pain, no n/v/d. no cp, sob, cough. just finished ambulating in hallway without difficulty. she had increased wbc last week, up to 17 on 11/29 - repeat ct abd showed edema in colon at area of resection with ? ischemia and abscess formation. she was broadened to vanco and zosyn and remain on this, vanco leve 22 today. she is tolerating well. george culture done and is pending, no plans for OR. wbc 15 today. she denies pain. creat 1.2, cxr negative. Review of Systems Review of Systems: All systems reviewed & are unremarkable except as noted in HPI & below Physical Exam Constitutional: WD/WN, vitals as above Eyes: PERRL, conjunctivae normal, anicteric sclerae ENMT: external ear and nose normal, oropharynx normal Mouth: + dry oral mucous membranes Neck: normal visual inspection Respiratory: normal respiratory effort, lungs clear to auscultation Cardiovascular: RRR, no murmur, no edema Gastrointestinal (Abdomen): normal bowel sounds, soft, nontender, no hepatosplenomegaly Percussion/Palpation: abdomen soft; abdomen nontender and no guarding Musculoskeletal: no cyanosis or clubbing, extremities motor strength 5/5 Skin: no rashes, warm and dry Psychiatric: A+Ox3, euthymic affect Results & Data ([facility]) Vital Signs (Past 12 Hours) Vital Signs Temp Pulse Resp BP Pulse Ox 12/02/19 07:43 36.4 C L 80 16 137/83 94 12/02/19 05:15 36.8 C 86 15 146/81 H 95 Laboratory Results Microbiology 11/29/19 12:40 Fluid,Undescribed Gram Stain - Final 11/29/19 12:40 Fluid,Undescribed Deep Wound Culture - Preliminary Lactobacillus species Anaerobic gram negative bacill 11/28/19 10:30 Urine,Clean Catch Urine Culture - Final More than three types of organisms present, all high counts mixed probable skin corrina - No further identifications or sensitivities to follow. 11/22/19 20:10 Blood Aerobic Blood Culture - Final No growth in Aerobic bottle after 5 days. 11/22/19 20:10 Blood Anaerobic Blood Culture - Final 11/22/19 18:38 Blood Aerobic Blood Culture - Final No growth in Aerobic bottle after 5 days. 11/22/19 18:38 Blood Anaerobic Blood Culture - Final No growth in Anaerobic bottle after 5 days. 11/20/19 12:54 Peritoneal Fluid Gram Stain - Final 11/20/19 12:54 Peritoneal Fluid Aerobic and Anaerobic Culture - Final Bacteroides thetaiotaomicron Clostridium sp not perfringens PG Care Time/CCT Total # of Minutes Spent Total Time Spent with Patient: Total time spent is greater than 50% in coordination of care (as documented) at patient's floor/unit and/or counseling patient: Coding Level of Care Code 14587 Subseq Hosp Care Lvl 3 Diagnoses Perforated abdominal viscus R19.8
--- NOTE | 2019-12-02 16:11 | Hospitalist Progress Note ---
Date of Service December 02, 2019 Assessment & Plan (1) SIRS (systemic inflammatory response syndrome): Mrs. Carreon is a 64 yo woman now status post exploratory laparotomy with partial sigmoid colectomy and colostomy formation for perforated abdominal viscus on 11/19. The perforation was thought to be secondary to a very hard fecal impaction in the sigmoid colon. Hospitalist Team was consulted for co- management of sepsis. SEPSIS, present on admission, source = peritonitis Improved clinically, however leukocytosis increased to 17 K --> CT A/P repeated 11/28 with possible rectouterine pelvic fluid collection 4.5cm Intra-operative peritoneal fluid with Bacteroides and Clostridium species not perfringens JOSEPH drain culture with lactobacillus species and parabacteroides ditasonis Blood cultures negative to date - initially treated with Cipro + metronidazole peritonitis x 9 days; converted to Zosyn/Vanc on 11/28 due to worsening leukocytosis - I see no indication to continue vancomycin therefore given worsening renal function this was discontinued given increased nephrotoxicity with this combination - Will defer to infectious disease for outpatient treatment but continue on Zosyn for now - if leukocytosis worsens again, consider percutaneous drainage as per Surgery recommendation (2) Elevated serum creatinine: Continue to monitor as unclear whether represents MORGAN or just return to her baseline now off IV fluids. Concerning that it has gone up after starting Vanc + Zosyn however for nephrotoxicity therefore will continue to trend and discontinue Vancomycin as above. (3) Impaired fasting glucose: Prior HbA1C 6.6 and current morning glucose measurements suggestive of T2DM. Will defer metformin management to her PCP. Will avoid carb restricted diet to allow her to build up her nutrition but will start getting BSG ACHS with insulin correction coverage to make sure she doesn't go too high throughout the day. (4) Pelvic abscess: as above (5) Tachycardia: resolved, secondary to sepsis (6) Perforated abdominal viscus: s/p sigmoid resection, colostomy as above, secondary to fecal impaction in the sigmoid colon - wound care for ostomy teaching -Continue pain control with Tylenol as needed NGT has been pulled, [place] catheter pulled JOSEPH drains x2 remain in place and faith will need to be removed in approximately 4 weeks post-op Postop surgical management as per surgery team-with pelvic abscess as above -Encourage ambulation Tolerating a low fiber diet (7) Chronic sinusitis: With a long history of allergies and chronic sinusitis Was having an exacerbation of symptoms here especially with having NG tube in place Improved with adding loratadine and nasal saline -continue nasal saline -Discouraged use of scheduled use of Sudafed -Continue Singulair -Continue on loratadine 10 mg daily -Patient reports Flonase in the past caused her significant headaches-we will avoid use -Uses albuterol as needed for previous diagnosis of asthma although recent consultation with pulmonology as an outpatient to reveal she likely does not have asthma (8) GERD (gastroesophageal reflux disease): Continue Protonix (9) Hyperlipidemia: -Continue rosuvastatin (10) Anxiety: No acute issues -Continue citalopram (11) Obstructive sleep apnea: Mild on sleep study in 2013-could not tolerate CPAP at that time (12) Renal mass, right: 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 Unclear reason for reduced dose of Lovenox - consider increasing to 40mg SQ daily. The hospitalist service will continue to follow Admission and Anticipated Discharge Date Admission Date: November 20, 2019 Subjective Patient reports continued slow improvement. Afebrile. Slight twinge of abdominal pain on right side but not really painful. No nausea, vomiting or diarrhea. She reports normal output through colostomy. No change in urine frequency, smell. Review of Systems Review of Systems: All systems reviewed & are unremarkable except as noted in HPI & below Physical Exam Constitutional: well developed, well nourished and + overweight; no acute distress Eyes: + anicteric sclerae; normal pupil size ENMT: external ear and nose normal, oropharynx normal Neck: trachea midline, no thyromegaly Respiratory: normal respiratory effort; no respiratory distress and no cough Auscultation: lungs clear to auscultation bilaterally; no diminished lung sounds, no crackles, no rales, no rhonchi and no wheezes Cardiovascular: Rate/Rhythm: regular rate and regular rhythm Heart Sounds: normal S1 and normal S2; no murmur Extremities: normal capillary refill; no edema Gastrointestinal (Abdomen): Inspection/Auscultation: normal bowel sounds and + abdominal surgical incision (C/D/I with dressing intact); + abdomen abnormal to inspection (Colostomy bag in place) and abdomen not distended Percussion/Palpation: abdomen soft; abdomen nontender, no guarding and abdomen not rigid Musculoskeletal: no cyanosis or clubbing, extremities motor strength 5/5 Extremities: extremities normal to inspection; no cyanosis and no clubbing Skin: no rashes, warm and dry Neurologic: moves all extremities and awake; no focal motor deficits Psychiatric: A+Ox3, euthymic affect Genitourinary: no CVA tenderness Results & Data Results & Data ([facility]) Vital Signs (Past 12 Hours) Vital Signs Temp Pulse Resp BP Pulse Ox 12/02/19 15:14 36.7 C 91 H 16 154/84 H 97 12/02/19 07:43 36.4 C L 80 16 137/83 94 12/02/19 05:15 36.8 C 86 15 146/81 H 95 PG Care Time/CCT Total # of Minutes Spent Total Time Spent with Patient: Total time spent is greater than 50% in coordination of care (as documented) at patient's floor/unit and/or counseling patient: Coding Level of Care Code 04934 Subseq Hosp Care Lvl 2 Diagnoses SIRS (systemic inflammatory response syndrome) R65.10 Elevated serum creatinine R79.89 Impaired fasting glucose R73.01 Pelvic abscess Tachycardia R00.0 Perforated abdominal viscus R19.8 Chronic sinusitis J32.9 GERD (gastroesophageal reflux disease) K21.9 Hyperlipidemia E78.5 Anxiety F41.9 Obstructive sleep apnea G47.33 Renal mass, right N28.89 Hypokalemia E87.6 DVT prophylaxis Z29.9
[2019-12-02] MEDS ORDERED: GLUCOSE 40% GEL 15 GM TUBE PO PRN (18:33)
[2019-12-02] MEDS ORDERED: GLUCOSE 10 TABS/TUBE PO PRN (18:33)
[2019-12-02] MEDS ORDERED: GLUCAGON FOR INJ 1 MG VIAL SQ PRN (18:33)
[2019-12-02] MEDS ORDERED: DEXTROSE 50% 50 ML SYRINGE IV PRN (18:33)
[2019-12-02] MEDS ORDERED: CARBOHYDRATES FOR HYPOGLYCEMIA PO PRN (18:33)
[2019-12-02] MEDS: POTASSIUM CHLORIDE 20 MEQ TABCR PO SCH (20:20)
[2019-12-02] MEDS: INSULIN ASPART 100 UNITS/ML 3 ML PEN SC SCH (21:35)
[2019-12-03] MEDS: PIPERACILLIN/TAZOBACTAM 3.375 GM in DEXTROSE 5% 100 ML IV SCH ×4 (00:26→23:42)
[2019-12-03 06:12] LABS: Hematocrit (blood only) 31.2 % (37-47); Hemoglobin 10.3 g/dL (12.0-16.0); Mean Corpuscular Hemoglobin 29.1 pg (25-34); Mean Corpuscular Volume 88.1 fL (80-100); Platelet Count 442 K/uL (130-400); RDW Coefficient of Variation 15.4 % (11.5-14.5); RDW Standard Deviation 49.8 fL (36.4-46.3); Red Blood Count 3.54 M/uL (4.2-5.4); White Blood Count 14.85 K/uL (4.8-10.8)
[2019-12-03 06:44] LABS: Calcium 8.9 mg/dl (8.5-10.1); Creatinine Clr Calc Pharmacy 40.4 ml/min; Est GFR (African American) 43.2; Est GFR (Non-African American) 37.3; Potassium 3.6 mmol/L (3.5-5.1)
[2019-12-03 06:53] LABS: Basophils # (auto) 0.03 K/uL (0-0.2); Basophils % (auto) 0.2 %; Eosinophils # (auto) 0.26 K/uL (0-0.5); Eosinophils % (auto) 1.8 %; Immature Granulocytes # (auto) 0.05 K/uL (0.00-0.02); Immature Granulocytes % (auto) 0.3 %; Lymphocytes # (auto) 1.61 K/uL (1.2-3.4); Lymphocytes % (auto) 10.8 %; Monocytes # (auto) 1.36 K/uL (0.11-0.59); Monocytes % (auto) 9.2 %; Neutrophils # (auto) 11.54 K/uL (1.4-6.5); Neutrophils % (auto) 77.7 %
[2019-12-03 08:01] LABS: Estimated Average Glucose 148 mg/dl; Hemoglobin A1C 6.8 % (4.5-5.6)
[2019-12-03] MEDS: CITALOPRAM 20 MG TAB PO SCH (08:43)
[2019-12-03] MEDS: POTASSIUM CHLORIDE 20 MEQ TABCR PO SCH ×2 (08:43→20:51)
[2019-12-03] MEDS: LORATADINE 10 MG TAB PO SCH (08:43)
[2019-12-03] MEDS: PANTOprazole 40 MG TAB PO SCH (08:43)
[2019-12-03] MEDS: SODIUM CHLORIDE 0.65% NA SOLN 45 ML (OCEAN) NAE SCH ×3 (08:43→20:51)
[2019-12-03] MEDS: ROSUVASTATIN CALCIUM 20 MG TAB PO SCH (08:43)
[2019-12-03] MEDS: ENOXAPARIN INJ 30 MG/0.3 ML SYR SQ SCH (08:44)
[2019-12-03] MEDS: INSULIN ASPART 100 UNITS/ML 3 ML PEN SC SCH ×4 (08:45→20:52)
--- NOTE | 2019-12-03 09:18 | Infectious Disease Progress Nt ---
Date of Service December 03, 2019 Assessment & Plan (1) Perforated abdominal viscus: continue current abx for now, no additional vanco needed and monitor progress, she is clinically stable currently. would suggest transition to aumgmentin upon d/c to complete 14 days. Admission and Anticipated Discharge Date Admission Date: November 20, 2019 Subjective pt george culture growing lactobacillus and bacteroides, no sensitivities to follow, creat increased to 1.4, vanco level 22 yesterday, on hold. remains on zosyn, wbc slightly improved to 14. afebrile. blood cultures negative and final. no plans for additinal OR at this time. Results & Data ([facility]) Vital Signs (Past 12 Hours) Vital Signs Temp Pulse Pulse Resp BP Pulse Ox 12/03/19 07:30 36.7 C 96 H 20 142/84 H 96 12/02/19 23:15 37.3 C 89 16 151/76 H 94 Laboratory Results Microbiology 11/29/19 12:40 Fluid,Undescribed Gram Stain - Final 11/29/19 12:40 Fluid,Undescribed Deep Wound Culture - Final Lactobacillus species Parabacteroides (B) distasonis 11/28/19 10:30 Urine,Clean Catch Urine Culture - Final More than three types of organisms present, all high counts mixed probable skin corrina - No further identifications or sensitivities to follow. 11/22/19 20:10 Blood Aerobic Blood Culture - Final No growth in Aerobic bottle after 5 days. 11/22/19 20:10 Blood Anaerobic Blood Culture - Final 11/22/19 18:38 Blood Aerobic Blood Culture - Final No growth in Aerobic bottle after 5 days. 11/22/19 18:38 Blood Anaerobic Blood Culture - Final No growth in Anaerobic bottle after 5 days. 11/20/19 12:54 Peritoneal Fluid Gram Stain - Final 11/20/19 12:54 Peritoneal Fluid Aerobic and Anaerobic Culture - Final Bacteroides thetaiotaomicron Clostridium sp not perfringens PG Care Time/CCT Total # of Minutes Spent Total Time Spent with Patient: Total time spent is greater than 50% in coordination of care (as documented) at patient's floor/unit and/or counseling patient: Coding Level of Care Code 67703 Subseq Hosp Care Lvl 1 Diagnoses Perforated abdominal viscus R19.8
--- NOTE | 2019-12-03 09:35 | Surgery Progress Note ---
Date of Service December 03, 2019 Assessment & Plan (1) Perforated abdominal viscus: Postoperative day #13 status post sigmoid colectomy with formation of colostomy GI function has returned Tolerating regular diet Creatinine has increased again today, await internal medicine and ID input On antibiotics White count has decreased some today Fluid collection in pelvis noted Would continue to treat conservatively as the patient is feeling well and white blood cell count now seems to be decreasing Subjective Postoperative day 13 status post sigmoid colectomy with formation of colostomy Patient feels very well today Colostomy is putting out semisolid material Denies nausea and vomiting Eating a low fiber diet tolerating that Ambulating in halls with physical therapy Has not had fever Manny #1 had 25 cc out yesterday and 15 cc out from the last shift the Manny #2 had 40 cc out yesterday and 20 cc out last shift, all serosanguineous Physical Exam Gastrointestinal (Abdomen): Inspection/Auscultation: + abdominal surgical incision (Clean, dry and intact); abdomen not distended Percussion/Palpation: abdomen soft; abdomen nontender Colostomy is pink and functioning Results & Data Vital Signs (Past 12 Hours) Vital Signs Temp Pulse Pulse Resp BP Pulse Ox 12/03/19 07:30 36.7 C 96 H 20 142/84 H 96 12/02/19 23:15 37.3 C 89 16 151/76 H 94 Laboratory Results 12/03/19 12/03/19 12/03/19 Range/Units 08:03 05:48 05:48 WBC 14.85 H (4.8-10.8) K/uL RBC 3.54 L (4.2-5.4) M/uL Hgb 10.3 L (12.0-16.0) g/dL Hct 31.2 L (37-47) % MCV 88.1 (80-100) fL MCH 29.1 (25-34) pg MCHC 33.0 (32-36) g/dL RDW Std Deviation 49.8 H (36.4-46.3) fL RDW Coeff of Sobia 15.4 H (11.5-14.5) % Plt Count 442 H (130-400) K/uL MPV 9.0 (7.4-10.4) fL Immature Gran % (Auto) 0.3 % Neut % (Auto) 77.7 % Lymph % (Auto) 10.8 % [place] % (Auto) 9.2 % Eos % (Auto) 1.8 % Baso % (Auto) 0.2 % Immature Gran # (Auto) 0.05 H (0.00-0.02) K/uL Neut # (Auto) 11.54 H (1.4-6.5) K/uL Lymph # (Auto) 1.61 (1.2-3.4) K/uL [place] # (Auto) 1.36 H (0.11-0.59) K/uL Eos # (Auto) 0.26 (0-0.5) K/uL Baso # (Auto) 0.03 (0-0.2) K/uL Sodium (136-145) mmol/L Potassium (3.5-5.1) mmol/L Chloride (98-107) mmol/L Carbon Dioxide (21-32) mmol/L Anion Gap (3-11) BUN (7-18) mg/dl Creatinine (0.6-1.2) mg/dl Est Cr Clr Drug Dosing ml/min Est GFR ( Amer) Est GFR (Non-Af Amer) BUN/Creatinine Ratio (10-20) Glucose (70-99) mg/dl POC Glucose 176 H (70-99) mg/dl Estimat Average Glucose 148 mg/dl Hemoglobin A1c 6.8 H (4.5-5.6) % Calcium (8.5-10.1) mg/dl 12/03/19 12/02/19 Range/Units 05:48 21:24 WBC (4.8-10.8) K/uL RBC (4.2-5.4) M/uL Hgb (12.0-16.0) g/dL Hct (37-47) % MCV (80-100) fL MCH (25-34) pg MCHC (32-36) g/dL RDW Std Deviation (36.4-46.3) fL RDW Coeff of Sobia (11.5-14.5) % Plt Count (130-400) K/uL MPV (7.4-10.4) fL Immature Gran % (Auto) % Neut % (Auto) % Lymph % (Auto) % [place] % (Auto) % Eos % (Auto) % Baso % (Auto) % Immature Gran # (Auto) (0.00-0.02) K/uL Neut # (Auto) (1.4-6.5) K/uL Lymph # (Auto) (1.2-3.4) K/uL [place] # (Auto) (0.11-0.59) K/uL Eos # (Auto) (0-0.5) K/uL Baso # (Auto) (0-0.2) K/uL Sodium 138 (136-145) mmol/L Potassium 3.6 (3.5-5.1) mmol/L Chloride 106 (98-107) mmol/L Carbon Dioxide 26 (21-32) mmol/L Anion Gap 6.0 (3-11) BUN 6 L (7-18) mg/dl Creatinine 1.48 H (0.6-1.2) mg/dl Est Cr Clr Drug Dosing 40.4 ml/min Est GFR ( Amer) 43.2 Est GFR (Non-Af Amer) 37.3 BUN/Creatinine Ratio 4.0 L (10-20) Glucose 125 H (70-99) mg/dl POC Glucose 158 H (70-99) mg/dl Estimat Average Glucose mg/dl Hemoglobin A1c (4.5-5.6) % Calcium 8.9 (8.5-10.1) mg/dl
[2019-12-03] MEDS: MONTELUKAST SODIUM 10 MG TABLET PO SCH (12:21)
--- NOTE | 2019-12-03 17:53 | Hospitalist Progress Note ---
Date of Service December 03, 2019 Assessment & Plan (1) SIRS (systemic inflammatory response syndrome): Mrs. Carreon is a 64 yo woman now status post exploratory laparotomy with partial sigmoid colectomy and colostomy formation for perforated abdominal viscus on 11/19. The perforation was thought to be secondary to a very hard fecal impaction in the sigmoid colon. Hospitalist Team was consulted for co- management of sepsis. SEPSIS, present on admission, source = peritonitis Improved clinically, however leukocytosis increased to 17 K --> CT A/P repeated 11/28 with possible rectouterine pelvic fluid collection 4.5cm Intra-operative peritoneal fluid with Bacteroides and Clostridium species not perfringens JOSEPH drain culture with lactobacillus species and parabacteroides ditasonis Blood cultures negative to date - initially treated with Cipro + metronidazole peritonitis x 9 days; converted to Zosyn/Vanc on 11/28 due to worsening leukocytosis - Vancomycin discontinued yesterday due to concern for nephrotoxicity - Will defer to infectious disease for outpatient treatment but continue on Zosyn for now - if leukocytosis worsens again, consider percutaneous drainage as per Surgery recommendation (2) Elevated serum creatinine: If taking baseline of 1 on admission, technically not yet MROGAN. Suspected nephrotoxicity from combination of Zosyn and Vancomycin. Vancomycin discontinued yesteryday. Monitor for progression with Cr in AM. (3) Impaired fasting glucose: Prior HbA1C 6.6 and current morning glucose measurements suggestive of T2DM. Will defer metformin management to her PCP. Avoid carb restricted diet to allow her to build up her nutrition but will start getting BSG ACHS with insulin correction coverage to make sure she doesn't go too high throughout the day. (4) Pelvic abscess: as above (5) Tachycardia: resolved, secondary to sepsis (6) Perforated abdominal viscus: s/p sigmoid resection, colostomy as above, secondary to fecal impaction in the sigmoid colon - wound care for ostomy teaching -Continue pain control with Tylenol as needed NGT has been pulled, Angeles catheter pulled JOSEPH drains x2 remain in place and faith will need to be removed in approximately 4 weeks post-op Postop surgical management as per surgery team-with pelvic abscess as above -Encourage ambulation Tolerating a low fiber diet (7) Chronic sinusitis: With a long history of allergies and chronic sinusitis Was having an exacerbation of symptoms here especially with having NG tube in place Improved with adding loratadine and nasal saline -continue nasal saline -Discouraged use of scheduled use of Sudafed -Continue Singulair -Continue on loratadine 10 mg daily -Patient reports Flonase in the past caused her significant headaches-we will avoid use -Uses albuterol as needed for previous diagnosis of asthma although recent consultation with pulmonology as an outpatient to reveal she likely does not have asthma (8) GERD (gastroesophageal reflux disease): Continue Protonix (9) Hyperlipidemia: -Continue rosuvastatin (10) Anxiety: No acute issues -Continue citalopram (11) Obstructive sleep apnea: Mild on sleep study in 2013-could not tolerate CPAP at that time (12) Renal mass, right: Right renal mass likely angiomyolipoma, 2 cm in size Incidentally noted on CT abd/pel -needs outpt surveillance imaging (13) Hypokalemia: Given continued hypokalemia despite IV replacement yesterday will increased PO dose to 20 meq PO BID yesterday (14) DVT prophylaxis: Deferred to primary surgical team. Unclear reason for reduced dose of Lovenox - consider increasing to 40mg SQ daily. The hospitalist service will continue to follow Admission and Anticipated Discharge Date Admission Date: November 20, 2019 Subjective Patient reports feeling much the same. Ongoing mild left sided abdominal mild pain without radiation or associated factors making it worse. Not getting any worse than yesterday. No change with bowel movements. Afebrile. Drains still with purulent drainage. Review of Systems Review of Systems: All systems reviewed & are unremarkable except as noted in HPI & below Physical Exam Constitutional: well developed, well nourished and + overweight; no acute distress Eyes: + anicteric sclerae; normal pupil size Respiratory: normal respiratory effort, lungs clear to auscultation no respiratory distress Cardiovascular: RRR, no murmur, no edema Chest (Breasts): Chest: normal inspection of chest Gastrointestinal (Abdomen): Inspection/Auscultation: normal bowel sounds, + abdominal surgical incision (C/D/I) and + abdominal surgical drain present (purelent drainage present); + abdomen abnormal to inspection (Colostomy bag in place) and abdomen not distended Percussion/Palpation: + abdomen tender (mild left sided on deep palpation) and abdomen soft; no guarding and abdomen not rigid Skin: no rashes, warm and dry + wound (surgical wound with faith, no erythema) Neurologic: moves all extremities and awake; no focal motor deficits Psychiatric: A+Ox3, euthymic affect Genitourinary: no CVA tenderness Results & Data Results & Data ([facility]) Vital Signs (Past 12 Hours) Vital Signs Temp Pulse Pulse Resp BP Pulse Ox 12/03/19 15:23 36.9 C 88 16 143/83 H 93 12/03/19 07:30 36.7 C 96 H 20 142/84 H 96 PG Care Time/CCT Total # of Minutes Spent Total Time Spent with Patient: Total time spent is greater than 50% in coordination of care (as documented) at patient's floor/unit and/or counseling patient: Coding Level of Care Code 11001 Subseq Hosp Care Lvl 2 Diagnoses SIRS (systemic inflammatory response syndrome) R65.10 Elevated serum creatinine R79.89 Impaired fasting glucose R73.01 Pelvic abscess Tachycardia R00.0 Perforated abdominal viscus R19.8 Chronic sinusitis J32.9 GERD (gastroesophageal reflux disease) K21.9 Hyperlipidemia E78.5 Anxiety F41.9 Obstructive sleep apnea G47.33 Renal mass, right N28.89 Hypokalemia E87.6 DVT prophylaxis Z29.9
[2019-12-04 05:19] LABS: Basophils # (auto) 0.04 K/uL (0-0.2); Basophils % (auto) 0.3 %; Eosinophils # (auto) 0.27 K/uL (0-0.5); Hematocrit (blood only) 30.7 % (37-47); Hemoglobin 10.1 g/dL (12.0-16.0); Immature Granulocytes # (auto) 0.03 K/uL (0.00-0.02); Immature Granulocytes % (auto) 0.2 %; Lymphocytes # (auto) 1.33 K/uL (1.2-3.4); Mean Corpuscular Hemoglobin 28.6 pg (25-34); Mean Corpuscular Hgb Conc 32.9 g/dL (32-36); Mean Platelet Volume 9.1 fL (7.4-10.4); Monocytes # (auto) 1.45 K/uL (0.11-0.59); Monocytes % (auto) 10.9 %; Neutrophils % (auto) 76.6 %; Platelet Count 394 K/uL (130-400); RDW Coefficient of Variation 15.2 % (11.5-14.5); RDW Standard Deviation 48.5 fL (36.4-46.3); Red Blood Count 3.53 M/uL (4.2-5.4); White Blood Count 13.32 K/uL (4.8-10.8)
[2019-12-04 05:44] LABS: Est GFR (African American) 37.6; Est GFR (Non-African American) 32.5
[2019-12-04] MEDS: INSULIN ASPART 100 UNITS/ML 3 ML PEN SC SCH ×2 (08:32→12:41)
[2019-12-04] MEDS: LORATADINE 10 MG TAB PO SCH (08:39)
[2019-12-04] MEDS: CITALOPRAM 20 MG TAB PO SCH (08:39)
[2019-12-04] MEDS: PIPERACILLIN/TAZOBACTAM 3.375 GM in DEXTROSE 5% 100 ML IV SCH (08:39)
[2019-12-04] MEDS: SODIUM CHLORIDE 0.65% NA SOLN 45 ML (OCEAN) NAE SCH ×3 (08:40→20:04)
[2019-12-04] MEDS: PANTOprazole 40 MG TAB PO SCH (08:40)
[2019-12-04] MEDS: POTASSIUM CHLORIDE 20 MEQ TABCR PO SCH ×2 (08:40→20:04)
[2019-12-04] MEDS: ENOXAPARIN INJ 30 MG/0.3 ML SYR SQ SCH (08:40)
[2019-12-04] MEDS: ROSUVASTATIN CALCIUM 20 MG TAB PO SCH (08:40)
[2019-12-04] MEDS: MONTELUKAST SODIUM 10 MG TABLET PO SCH (12:40)
--- NOTE | 2019-12-04 13:08 | Surgery Progress Note ---
Date of Service December 04, 2019 Assessment & Plan (1) Perforated abdominal viscus: Postoperative day 14 status post sigmoid colon resection with formation of colostomy The colostomy is working well There is purulent material in the drains and I would continue to use those. I would not remove them. She could potentially go home with them. Her creatinine increased again today Question as to whether or not that is due to the Zosyn and vancomycin Discussed with Dr. Dubon from internal medicine who will investigate an antibiotic regimen for this patient Continue to encourage ambulation Subjective Postoperative day #14 status post sigmoid colon resection with formation of colostomy The patient feels very well today Tolerating regular diet Colostomy is functioning well She has no nausea or vomiting JOSEPH drains with purulent appearing material Physical Exam Gastrointestinal (Abdomen): Inspection/Auscultation: normal bowel sounds; a bdomen not distended Percussion/Palpation: abdomen soft; abdomen nontender Colostomy is functioning and pink and healthy-appearing Results & Data Vital Signs (Past 12 Hours) Vital Signs Temp Pulse Resp BP Pulse Ox 12/04/19 07:19 36.7 C 90 18 148/83 H 96
--- NOTE | 2019-12-04 13:10 | Hospitalist Progress Note ---
Date of Service December 04, 2019 Assessment & Plan (1) Sepsis: Mrs. Carreon is a 64 yo woman now status post exploratory laparotomy with partial sigmoid colectomy and colostomy formation for perforated abdominal viscus on 11/19. The perforation was thought to be secondary to a very hard fecal impaction in the sigmoid colon. Hospitalist Team was consulted for co- management of sepsis. SEPSIS, present on admission, source = peritonitis, sepsis now resolved Improved clinically, however leukocytosis increased to 17 K --> CT A/P repeated 11/28 with possible rectouterine pelvic fluid collection 4.5cm Intra-operative peritoneal fluid with Bacteroides and Clostridium species not perfringens JOSEPH drain culture with lactobacillus species and parabacteroides ditasonis Blood cultures negative to date - initially treated with Cipro + metronidazole peritonitis x 9 days; converted to Zosyn/Vanc on 11/28 due to worsening leukocytosis, vancomycin discontinued 10/03 given no concern for MRSA and increasing Cr concerning for nephrotoxicity of combination. 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 She will need total 14 days Abx from 11/29 (last day 12/13). If ID in agreement of ertapenem and no alternate PO antibiotic she will need US guided peripheral line placed to complete course of antibiotics. (2) Peritonitis: as above. Secondary to perforation (3) Acute kidney injury: Continued uptrending Cr. Suspected previously to be nephrotoxicity in setting of vancomycin and zosyn use. 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 Zosyn discontinued. UA+/- micro, urine eosinophils, FENa ordered. Message sent to Dr Rodas to discuss alternative to Augmentin on discharge. Given concern for failure of cipro/metronidazole I know of no alternative suitable PO regimen and will start Ertapenem for now as can be dose once daily. (4) Impaired fasting glucose: Prior HbA1C 6.6 and current morning glucose measurements suggestive of T2DM. Will defer metformin management to her PCP especially in light of MORGAN. Minimal insulin requirement during last 2 days therefore will stop BSG ACHS. Start diabetic diet (5) Pelvic abscess: as above (6) Tachycardia: resolved, secondary to sepsis (7) Perforated abdominal viscus: s/p sigmoid resection, colostomy as above, secondary to fecal impaction in the sigmoid colon - wound care for ostomy teaching -Continue pain control with Tylenol as needed NGT has been pulled, [place] catheter pulled JOSEPH drains x2 remain in place and faith will need to be removed in approximately 4 weeks post-op Postop surgical management as per surgery team-with pelvic abscess as above -Encourage ambulation Tolerating a low fiber diet (8) Chronic sinusitis: With a long history of allergies and chronic sinusitis Was having an exacerbation of symptoms here especially with having NG tube in place Improved with adding loratadine and nasal saline -continue nasal saline -Discouraged use of scheduled use of Sudafed -Continue Singulair -Continue on loratadine 10 mg daily -Patient reports Flonase in the past caused her significant headaches-we will avoid use -Uses albuterol as needed for previous diagnosis of asthma although recent consultation with pulmonology as an outpatient to reveal she likely does not have asthma (9) GERD (gastroesophageal reflux disease): Continue Protonix (10) Hyperlipidemia: -Continue rosuvastatin (11) Anxiety: No acute issues -Continue citalopram (12) Obstructive sleep apnea: Mild on sleep study in 2013-could not tolerate CPAP at that time (13) Renal mass, right: Right renal 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 Subjective Patient reports continued slow improvement. Mild abdominal pains previously resolved and associated with bloating. No nausea or vomiting. Colostomy patent. Drains with purulent drainage. No fevers or chills. Review of Systems Review of Systems: All systems reviewed & are unremarkable except as noted in HPI & below Physical Exam Constitutional: well developed, well nourished and + overweight; no acute distress Eyes: + anicteric sclerae; normal pupil size Respiratory: normal respiratory effort; no respiratory distress Cardiovascular: Rate/Rhythm: regular rate and regular rhythm Heart Sounds: normal S1 and normal S2; no murmur Chest (Breasts): Chest: normal inspection of chest Gastrointestinal (Abdomen): Inspection/Auscultation: normal bowel sounds and + abdominal surgical drain present (purulent drainage present); abdomen not distended Percussion/Palpation: abdomen soft; abdomen nontender, no guarding and abdomen not rigid Musculoskeletal: no cyanosis or clubbing, extremities motor strength 5/5 Extremities: extremities normal to inspection; no cyanosis and no clubbing Neurologic: moves all extremities and awake; not confused Psychiatric: A+Ox3, euthymic affect Results & Data Results & Data ([facility]) Vital Signs (Past 12 Hours) Vital Signs Temp Pulse Resp BP Pulse Ox 12/04/19 07:19 36.7 C 90 18 148/83 H 96 PG Care Time/CCT Total # of Minutes Spent Total Time Spent with Patient: Total time spent is greater than 50% in coordination of care (as documented) at patient's floor/unit and/or counseling patient: Coding Level of Care Code 95801 Subseq Hosp Care Lvl 2 Diagnoses Sepsis A41.9 Sepsis type: sepsis due to unspecified organism Sepsis acute organ dysfunction status: without acute organ dysfunction Peritonitis K65.9 Acute kidney injury N17.9 Impaired fasting glucose R73.01 Pelvic abscess Tachycardia R00.0 Perforated abdominal viscus R19.8 Chronic sinusitis J32.9 GERD (gastroesophageal reflux disease) K21.9 Hyperlipidemia E78.5 Anxiety F41.9 Obstructive sleep apnea G47.33 Renal mass, right N28.89 Hypokalemia E87.6 DVT prophylaxis Z29.9 (1) Sepsis Sepsis type: sepsis due to unspecified organism Sepsis acute organ dysfunction status: without acute organ dysfunction Qualified Code(s): A41.9 - Sepsis, unspecified organism
[2019-12-04 13:11] LABS: Appearance Urine Clear (Clear); Bacteria Urine Automated Negative (Negative); Bilirubin Urine Negative (Negative); Blood Urine Trace (Negative); Cast Urine Automated 0 /lpf (0-5); Color Urine Yellow; Epithelial Cell Urine Auto >30 /lpf (0-5); Glucose Urine UA Negative (Negative); Ketones Urine Negative (Negative); Leukocyte Esterase Urine Negative (Negative); Nitrite Urine Negative (Negative); Protein Urine Trace (Negative); RBC Urine Automated 0-4 /hpf (0-4); Specific Gravity Urine 1.009 (1.000-1.030); Urobilinogen Urine Negative (Negative); pH Urine 6.5 (4.5-7.5)
[2019-12-04] MEDS: ERTAPENEM SODIUM 1,000 MG in SODIUM CHLORIDE 0.9% 50 ML IV SCH (14:50)
[2019-12-05 05:53] LABS: Basophils # (auto) 0.03 K/uL (0-0.2); Basophils % (auto) 0.2 %; Eosinophils # (auto) 0.25 K/uL (0-0.5); Eosinophils % (auto) 2.1 %; Hematocrit (blood only) 32.3 % (37-47); Hemoglobin 10.6 g/dL (12.0-16.0); Immature Granulocytes # (auto) 0.05 K/uL (0.00-0.02); Immature Granulocytes % (auto) 0.4 %; Lymphocytes # (auto) 1.43 K/uL (1.2-3.4); Lymphocytes % (auto) 11.9 %; Mean Corpuscular Hemoglobin 28.8 pg (25-34); Mean Corpuscular Hgb Conc 32.8 g/dL (32-36); Mean Corpuscular Volume 87.8 fL (80-100); Mean Platelet Volume 9.2 fL (7.4-10.4); Monocytes # (auto) 1.28 K/uL (0.11-0.59); Monocytes % (auto) 10.7 %; Neutrophils # (auto) 8.97 K/uL (1.4-6.5); Neutrophils % (auto) 74.7 %; Platelet Count 433 K/uL (130-400); RDW Coefficient of Variation 15.2 % (11.5-14.5); RDW Standard Deviation 48.9 fL (36.4-46.3); Red Blood Count 3.68 M/uL (4.2-5.4); White Blood Count 12.01 K/uL (4.8-10.8)
[2019-12-05 06:25] LABS: BUN Creatinine Ratio 6.2 (10-20); Calcium 9.3 mg/dl (8.5-10.1); Est GFR (African American) 43.6; Est GFR (Non-African American) 37.6; Potassium 4.1 mmol/L (3.5-5.1)
[2019-12-05] MEDS: ENOXAPARIN INJ 30 MG/0.3 ML SYR SQ SCH (08:17)
[2019-12-05] MEDS: POTASSIUM CHLORIDE 20 MEQ TABCR PO SCH (08:37)
[2019-12-05] MEDS: PANTOprazole 40 MG TAB PO SCH (08:37)
[2019-12-05] MEDS: CITALOPRAM 20 MG TAB PO SCH (08:37)
[2019-12-05] MEDS: LORATADINE 10 MG TAB PO SCH (08:38)
[2019-12-05] MEDS: ROSUVASTATIN CALCIUM 20 MG TAB PO SCH (08:38)
[2019-12-05] MEDS: SODIUM CHLORIDE 0.65% NA SOLN 45 ML (OCEAN) NAE SCH ×2 (08:39→14:05)
--- NOTE | 2019-12-05 09:07 | Surgery Progress Note ---
Date of Service December 05, 2019 Assessment & Plan (1) Perforated abdominal viscus: Postoperative day 15 status post sigmoid colon resection with formation of colostomy Doing well from a surgical standpoint Drains continue to have purulent appearing output and would continue to use those. Would not remove them. If she goes home she can go home with them for follow-up in the office White blood cell count continues to trend towards normal Creatinine has decreased today Antibiotics changed yesterday Await internal medicine input regarding discharge Subjective Postoperative day 15 status post sigmoid colectomy with formation of colostomy Patient feels well Tolerating low fiber diet Colostomy is functioning Clyde-Rocha #1 had 10 cc yesterday and 0 cc over the last shift the Clyde- Rocha #2 at 15 cc yesterday and 10 cc over the last shift, still appears purulent however does appear less viscous Physical Exam Gastrointestinal (Abdomen): Inspection/Auscultation: normal bowel sounds and + abdominal surgical incision (Clean, dry and intact); abdomen not distended Percussion/Palpation: abdomen soft; abdomen nontender Colostomy is functioning and peers healthy Results & Data Vital Signs (Past 12 Hours) Vital Signs Temp Pulse Resp BP Pulse Ox 12/05/19 07:30 36.6 C 75 16 145/87 H 93 12/04/19 23:11 37.4 C 87 16 144/83 H 93 Laboratory Results 12/05/19 12/05/19 12/04/19 Range/Units 05:30 05:30 17:00 WBC 12.01 H (4.8-10.8) K/uL RBC 3.68 L (4.2-5.4) M/uL Hgb 10.6 L (12.0-16.0) g/dL Hct 32.3 L (37-47) % MCV 87.8 (80-100) fL MCH 28.8 (25-34) pg MCHC 32.8 (32-36) g/dL RDW Std Deviation 48.9 H (36.4-46.3) fL RDW Coeff of Sobia 15.2 H (11.5-14.5) % Plt Count 433 H (130-400) K/uL MPV 9.2 (7.4-10.4) fL Immature Gran % (Auto) 0.4 % Neut % (Auto) 74.7 % Lymph % (Auto) 11.9 % Sebastian % (Auto) 10.7 % Eos % (Auto) 2.1 % Baso % (Auto) 0.2 % Immature Gran # (Auto) 0.05 H (0.00-0.02) K/uL Neut # (Auto) 8.97 H (1.4-6.5) K/uL Lymph # (Auto) 1.43 (1.2-3.4) K/uL Sebastian # (Auto) 1.28 H (0.11-0.59) K/uL Eos # (Auto) 0.25 (0-0.5) K/uL Baso # (Auto) 0.03 (0-0.2) K/uL Sodium 137 (136-145) mmol/L Potassium 4.1 (3.5-5.1) mmol/L Chloride 106 (98-107) mmol/L Carbon Dioxide 24 (21-32) mmol/L Anion Gap 7.0 (3-11) BUN 9 (7-18) mg/dl Creatinine 1.47 H (0.6-1.2) mg/dl Est Cr Clr Drug Dosing 40.0 ml/min Est GFR ( Amer) 43.6 Est GFR (Non-Af Amer) 37.6 BUN/Creatinine Ratio 6.2 L (10-20) Glucose 141 H (70-99) mg/dl POC Glucose (70-99) mg/dl Calcium 9.3 (8.5-10.1) mg/dl Urine Color Urine Appearance (Clear) Urine pH (4.5-7.5) Ur Specific Underwood (1.000-1.030) Urine Protein (Negative) Urine Glucose (UA) (Negative) Urine Ketones (Negative) Urine Blood (Negative) Urine Nitrite (Negative) Urine Bilirubin (Negative) Urine Urobilinogen (Negative) Ur Leukocyte Esterase (Negative) Urine WBC (Auto) (0-5) /hpf Urine RBC (Auto) (0-4) /hpf U Hyaline Cast (Auto) (0-5) /lpf U Epithel Cells (Auto) (0-5) /lpf Urine Bacteria (Auto) (Negative) Ur Random Creatinine 39.0 mg/dl Ur Random Sodium mmol/L 12/04/19 12/04/19 12/04/19 Range/Units 17:00 12:55 11:49 WBC (4.8-10.8) K/uL RBC (4.2-5.4) M/uL Hgb (12.0-16.0) g/dL Hct (37-47) % MCV (80-100) fL MCH (25-34) pg MCHC (32-36) g/dL RDW Std Deviation (36.4-46.3) fL RDW Coeff of Sobia (11.5-14.5) % Plt Count (130-400) K/uL MPV (7.4-10.4) fL Immature Gran % (Auto) % Neut % (Auto) % Lymph % (Auto) % Sebastian % (Auto) % Eos % (Auto) % Baso % (Auto) % Immature Gran # (Auto) (0.00-0.02) K/uL Neut # (Auto) (1.4-6.5) K/uL Lymph # (Auto) (1.2-3.4) K/uL Sebastian # (Auto) (0.11-0.59) K/uL Eos # (Auto) (0-0.5) K/uL Baso # (Auto) (0-0.2) K/uL Sodium (136-145) mmol/L Potassium (3.5-5.1) mmol/L Chloride (98-107) mmol/L Carbon Dioxide (21-32) mmol/L Anion Gap (3-11) BUN (7-18) mg/dl Creatinine (0.6-1.2) mg/dl Est Cr Clr Drug Dosing ml/min Est GFR ( Amer) Est GFR (Non-Af Amer) BUN/Creatinine Ratio (10-20) Glucose (70-99) mg/dl POC Glucose 150 H (70-99) mg/dl Calcium (8.5-10.1) mg/dl Urine Color Yellow Urine Appearance Clear (Clear) Urine pH 6.5 (4.5-7.5) Ur Specific Underwood 1.009 (1.000-1.030) Urine Protein Trace H (Negative) Urine Glucose (UA) Negative (Negative) Urine Ketones Negative (Negative) Urine Blood Trace H (Negative) Urine Nitrite Negative (Negative) Urine Bilirubin Negative (Negative) Urine Urobilinogen Negative (Negative) Ur Leukocyte Esterase Negative (Negative) Urine WBC (Auto) 1-5 (0-5) /hpf Urine RBC (Auto) 0-4 (0-4) /hpf U Hyaline Cast (Auto) 0 (0-5) /lpf U Epithel Cells (Auto) >30 H (0-5) /lpf Urine Bacteria (Auto) Negative (Negative) Ur Random Creatinine mg/dl Ur Random Sodium 70 mmol/L
[2019-12-05] MEDS: MONTELUKAST SODIUM 10 MG TABLET PO SCH (12:40)
[2019-12-05] MEDS: ERTAPENEM SODIUM 1,000 MG in SODIUM CHLORIDE 0.9% 50 ML IV SCH (14:05)
[2019-12-05 15:28] VITALS: BP 138/87; TEMP 98.6; O2SAT 94
[2019-12-05 16:17] VITALS: PULSE 96
--- NOTE | 2019-12-05 16:34 | Hospitalist Progress Note ---
Date of Service December 05, 2019 Assessment & Plan (1) Sepsis: Initially treated with Cipro + metronidazole peritonitis x 9 days; converted to Zosyn/Vanc on 11/28 due to worsening leukocytosis, vancomycin discontinued 10/03 given no concern for MRSA and increasing Cr concerning for nephrotoxicity of combination. - Some concern for AIN; however, discussed with nephrology who feels timing is not right and that prior gross hematuria with amoxicillin actually also points away from AIN. - Discharged on Augmentin x 7 days which completes lengthy course. Will follow up with nephrology to ensure kidney function returning to normal. Discussed with patient, and she is agreeable to this course of action. (2) Peritonitis: as above. Secondary to perforation (3) Acute kidney injury: Returning to normal. Likely due to vanc/Zosyn combination. - Nephrology follow up as above. (4) Impaired fasting glucose: Prior HbA1C 6.6 and current morning glucose measurements suggestive of T2DM. Will defer metformin management to her PCP especially in light of MORGAN. Minimal insulin requirement during last 2 days therefore will stop BSG ACHS. Start diabetic diet (5) Pelvic abscess: as above (6) Tachycardia: resolved, secondary to sepsis (7) Perforated abdominal viscus: s/p sigmoid resection, colostomy as above, secondary to fecal impaction in the sigmoid colon - wound care for ostomy teaching -Continue pain control with Tylenol as needed NGT has been pulled, [place] catheter pulled JOSEPH drains x2 remain in place and faith will need to be removed in approximately 4 weeks post-op Postop surgical management as per surgery team-with pelvic abscess as above -Encourage ambulation Tolerating a low fiber diet (8) Chronic sinusitis: With a long history of allergies and chronic sinusitis Was having an exacerbation of symptoms here especially with having NG tube in place Improved with adding loratadine and nasal saline -continue nasal saline -Discouraged use of scheduled use of Sudafed -Continue Singulair -Continue on loratadine 10 mg daily -Patient reports Flonase in the past caused her significant headaches-we will avoid use -Uses albuterol as needed for previous diagnosis of asthma although recent consultation with pulmonology as an outpatient to reveal she likely does not have asthma (9) GERD (gastroesophageal reflux disease): Continue Protonix (10) Hyperlipidemia: -Continue rosuvastatin (11) Anxiety: No acute issues -Continue citalopram (12) Obstructive sleep apnea: Mild on sleep study in 2013-could not tolerate CPAP at that time (13) Renal mass, right: Right renal 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 If eGFR < 30 tomorrow will switch to heparin The hospitalist service will continue to follow Admission and Anticipated Discharge Date Admission Date: November 20, 2019 Subjective Doing well today. No major concerns. No abdominal pain. Urinating and BM stable. Reports no fevers/chills, chest pain, shortness of breath, abdominal pain, nausea, or vomiting. Physical Exam Constitutional: WD/WN, vitals as above Eyes: EOM intact bilaterally; no conjunctival abnormality ENMT: external ear and nose normal, oropharynx normal Neck: trachea midline, no thyromegaly normal visual inspection Respiratory: normal respiratory effort, lungs clear to auscultation no respiratory distress Cardiovascular: RRR, no murmur, no edema Gastrointestinal (Abdomen): Inspection/Auscultation: + abdomen abnormal to inspection (Ostomy) and abdomen not distended Musculoskeletal: no cyanosis or clubbing, extremities motor strength 5/5 Skin: no rashes, warm and dry Neurologic: moves all extremities and awake Psychiatric: Orientation: alert, oriented to person and cooperative Results & Data Results & Data ([facility]) Vital Signs (Past 12 Hours) Vital Signs Temp Pulse Pulse Resp BP Pulse Ox 12/05/19 16:15 37.0 C 96 H 90 14 138/87 94 12/05/19 15:27 37.0 C 90 14 138/87 94 12/05/19 07:30 36.6 C 75 16 145/87 H 93 PG Care Time/CCT Total # of Minutes Spent Total Time Spent with Patient: Total time spent is greater than 50% in coordination of care (as documented) at patient's floor/unit and/or counseling patient: Coding Level of Care Code 45357 Subseq Hosp Care Lvl 2 Diagnoses Sepsis A41.9 Sepsis type: sepsis due to unspecified organism Sepsis acute organ dysfunction status: without acute organ dysfunction Peritonitis K65.9 Acute kidney injury N17.9 Impaired fasting glucose R73.01 Pelvic abscess Tachycardia R00.0 Perforated abdominal viscus R19.8 Chronic sinusitis J32.9 GERD (gastroesophageal reflux disease) K21.9 Hyperlipidemia E78.5 Anxiety F41.9 Obstructive sleep apnea G47.33 Renal mass, right N28.89 Hypokalemia E87.6 DVT prophylaxis Z29.9 (1) Sepsis Sepsis type: sepsis due to unspecified organism Sepsis acute organ dysfunction status: without acute organ dysfunction Qualified Code(s): A41.9 - Sepsis, unspecified organism
--- NOTE | 2019-12-06 12:34 | Discharge Summary (DS) ---
ADMITTING DIAGNOSIS: Sigmoid colon perforation, sepsis, peritonitis. DISCHARGE DIAGNOSIS: Same. OPERATION: Exploratory laparotomy, sigmoid colon resection with a colostomy. SURGEON: Yunior Gomes MD. DETAILS OF DISCHARGE SUMMARY: This is a 64-year-old female who presented to ED with acute abdominal pain. The patient had a CT scan diagnosis as free air with perforation of the bowel and we took the patient and did emergency exploratory laparotomy. During the OR, we found the patient had a perforated sigmoid colon. We did a sigmoid colon resection and colostomy and JOSEPH drainage x2. The patient tolerated the procedure well. After procedure, the patient transferred to recovery room and later on transferred to regular floor and the patient doing fine; however, after 5 days, the patient's white count still has bone up and we switched her antibiotic from Cipro plus Flagyl to the vancomycin plus Zosyn and consulted ID with hospitalist, co-managed the patient and eventually the patient feels better. No significant abdominal pain and on 12/04, patient's white count is 12,000 and come down from the 17,000. Creatinine is 1.4 and the patient is doing fine and patient tolerated a regular diet. Colostomy is working fine. No abdominal pain. PHYSICAL EXAMINATION: VITAL SIGNS: Temperature is 37, respirations 14, heart rate 96, blood pressure 138/87. O2 saturation is 94% on room air. JOSEPH drainage about 30 mL came out from JOSEPH . JOSEPH drainage is still purulent. HEENT: Without normal limitations. NEUROLOGIC: Intact. NECK: No JVD. CHEST: Bilateral lung sounds clear. HEART: Normal S1, S2. No murmur. ABDOMEN: Abdomen is soft, nondistended, no tenderness. Colostomy is working fine. Incision is healed fine. No redness, no drainage. Two JOSEPH drainage is still intact. EXTREMITIES: No edema. During the hospital stay also, we consulted the category development manager as creatinine go up and they think is related to the vancomycin and Zosyn. Once we stop hopefully, the patient's renal function can recover and patient will go home. We sent her home with 7 days' Augmentin. Also we gave the patient postop care instruction. The patient understands. We will follow up the patient in 1 week in my office. SUSAN
== END 2019-12-05 17:20 | disposition home health service (06) | DRG 853 ==
LOC: ED 08:41 → ASU 11:35 → 1E 15:26 → 2W 21:44 → 3E 12-02 05:21